=== PATIENT | female | born 1940 | race Caucasian/White ===

== ENCOUNTER 2021-05-30 10:06 | Outpatient (REF) | payer MEDICARE, BC, SELFPAY ==
--- NOTE | ~2021-05-30 | XR_ITS ---
EXAMINATION: XR ABDOMEN KUB CLINICAL INDICATION: Dorsalgia. Unspecified abdominal pain COMPARISON: None TECHNIQUE: AP view of the abdomen. FINDINGS: There is scattered stool and gas seen throughout the colon without significant distention. There is no organomegaly. There are surgical orin in the right upper quadrant from previous cholecystectomy. No radiopaque calculi seen. Mild degenerative spondylosis seen in lower dorsal and upper lumbar spine. No lytic process. XR/XR KUB IMPRESSION: Mild constipation. Moderate spondylosis lower dorsal and upper lumbar spine.
== END 2021-05-30 10:07 | disposition home or self-care (01) ==
LOC: HO.HMGCX 10:06
PROVIDERS: Visit Provider Physician Assistant
DX: M54.9 Dorsalgia, unspecified (principal); K59.09 Other constipation; Z90.49 Acquired absence of other specified parts of digestive tract
CPT/HCPCS: 74018

== ENCOUNTER 2021-12-25 08:50 | Outpatient (REF) | payer MEDICARE, BC, SELFPAY ==
[2021-12-25 11:30] LABS: MANUAL DIFF FLAG NO
[2021-12-25 11:47] LABS: Basophils Absolute Auto 0.1 X10*3/uL (0.0-0.2); Basophils Percent Auto 1.1 % (0-2); Eosinophils Absolute Auto 0.2 X10*3/uL (0.0-0.4); Eosinophils Percent Auto 3.2 % (0-4); Hematocrit 39.6 % (37.0-47.0); Hemoglobin 12.6 g/dl (12.0-16.0); Imm Gran Abs Auto 0.01 X10*3/uL (0.00-0.03); Imm Gran Pct Auto 0.2 % (0.0-0.4); Lymphocytes Absolute Auto 2.1 X10*3/uL (1.2-4.9); Lymphocytes Percent Auto 31.1 % (20-40); Mean Corpuscular HGB Conc 31.8 g/dl (31.0-35.0); Mean Corpuscular Hemoglobin 28.8 pg (27.0-33.0); Mean Corpuscular Volume 90.4 fL (80.0-98.0); Mean Platelet Volume 10.4 fL (9.4-12.3); Monocytes Absolute Auto 0.6 X10*3/uL (0.1-1.2); Monocytes Percent Auto 8.4 % (2-11); Neutrophils Absolute Auto 3.7 x10*3/uL (2.0-8.3); Platelet Count 330 X10*3/uL (160-400); Red Blood Count 4.38 X10*6/uL (4.20-5.50); Red Cell Distribution Width 13.2 % (11.0-16.0); White Blood Count 6.6 X10*3/uL (4.8-10.8)
[2021-12-25 12:52] LABS: Vitamin B12 869 pg/mL (200-900)
[2021-12-25 14:19] LABS: TSH reflex Free T4 3.12 uIU/mL (0.32-4.0)
[2021-12-25 14:31] LABS: Alanine Aminotransferase 17 U/L (0-31); Albumin Level 4.3 g/dL (3.5-5.0); Alkaline Phosphatase 69 U/L (39-117); Anion Gap 15 (12-20); Aspartate Amino Transferase 18 U/L (5-31); Bilirubin Total 0.7 mg/dL (0.0-1.0); Blood Urea Nitrogen 15 mg/dL (9-16); Calcium 8.7 mg/dL (8.4-10.2); Carbon Dioxide 27 mmol/L (22-29); Chloride 106 mmol/L (96-108); Cholesterol 172 mg/dL; Estimated Glomerular Filt Rate > 60; Glucose Fasting 109 mg/dL (60-99); HDL Cholesterol 52 mg/dL; LDL Cholesterol Calculated 99 mg/dl; Potassium 4.3 mmol/L (3.3-5.1); Sodium 144 mmol/L (135-145); Total Protein 6.7 g/dL (6.5-8.0); Triglycerides 109 mg/dL
== END 2021-12-25 08:51 | disposition home or self-care (01) ==
LOC: HO.HMGCLDS 08:50
PROVIDERS: PCP Internal Medicine; Visit Provider Internal Medicine
DX: E78.9 Disorder of lipoprotein metabolism, unspecified (principal); I10 Essential (primary) hypertension; J45.40 Moderate persistent asthma, uncomplicated; E53.8 Deficiency of other specified B group vitamins; K21.9 Gastro-esophageal reflux disease without esophagitis; Z76.89 Persons encountering health services in other specified circumstances
CPT/HCPCS: 36415; 80053; 80061; 82607; 84443; 85025

== ENCOUNTER 2022-01-15 09:36 | Outpatient (REF) | payer MEDICARE, BC, SELFPAY ==
--- NOTE | ~2022-01-15 | MM_ITS ---
EXAMINATION: MM SCREENING DIGITAL BREAST TOMOSYNTHESIS, BILATERAL CLINICAL INFORMATION: Screening. Asymptomatic. The lifetime risk of breast cancer based on the Tyrer-Cuzick Model is 2%. COMPARISON: Mammography: None at this time. It is stated that patient has had previous films done at [place]. TECHNIQUE: Digital breast tomosynthesis is performed in both the craniocaudal and mediolateral oblique views along with computer-aided detection (CAD). Synthesized 2D images are generated from the tomosynthesis. FINDINGS: The breasts are extremely dense, which lowers the sensitivity of mammography (ACR BI-RADS breast composition Category d). Within the medial aspect of the right breast approximately 7 cm from nipple, there is a well-circumscribed density that I cannot definitely identify on mediolateral oblique projection. There are also multiple calcifications about the central and superior aspects of the right breast some of which appear to be vascular and others secretory, however, there are some indeterminate calcifications present and spot magnification views are recommended if old studies cannot be obtained to show that these are stable findings. MM/MM tomosynthesis screening BI IMPRESSION: Right breast findings for which further evaluation is recommended if prior studies cannot be obtained to show that these findings are chronic. ASSESSMENT: BI-RADS 0: Incomplete - Awaiting previous examinations for comparison. RECOMMENDATION: 1. Radiology department staff will attempt to retrieve outside prior exam(s) to allow for comparison in an addendum report. 2. Otherwise, right breast spot magnification views for indeterminate calcifications and ultrasound for evaluation of the medial right breast density.
== END 2022-01-15 09:37 | disposition home or self-care (01) ==
LOC: HO.MAMMO 09:36
PROVIDERS: PCP Internal Medicine; Visit Provider Internal Medicine
DX: Z12.31 Encounter for screening mammogram for malignant neoplasm of breast (principal)
CPT/HCPCS: 77063; 77067

== ENCOUNTER 2022-02-05 13:23 | Outpatient (REF) | payer MEDICARE, BC, SELFPAY ==
--- NOTE | ~2022-02-05 | US_ITS ---
EXAMINATION: US DIAGNOSTIC ULTRASOUND BREAST, LEFT CLINICAL INFORMATION: Left breast palpable mass in the upper outer quadrant. COMPARISON: None. TECHNIQUE: Ultrasound of the breast is performed with real-time navarro scale imaging and color Doppler. FINDINGS: In the region of palpable lesion at the 1 o'clock position in the left breast 5 cm from the nipple, there is noted to be a hypoechoic, well-circumscribed lesion with increased through sound transmission. There is some internal vascularity present. It measures 1.4 x 1.2 x 1.6 cm in size and likely represents a fibroadenoma. Ultrasound-guided core biopsy of the left breast is recommended. A second option would be 6 month follow up ultrasound evaluation of the left breast. Results are discussed with the patient at time of visit. 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 Ultrasound-guided core biopsy is recommended. ASSESSMENT: BI-RADS 4: Suspicious (subcategory 4A: Low suspicion for malignancy) RECOMMENDATION: Ultrasound-guided core biopsy. Above recommendation will be called to the referring provider's office [facility] by the patient coordinator. This patient's information was entered into a reminder system with a target due date for their next mammogram.
--- NOTE | ~2022-02-05 | MM_ITS ---
EXAMINATION: MM DIAGNOSTIC DIGITAL BREAST TOMOSYNTHESIS, LEFT US TARGETED BREAST, LEFT CLINICAL INFORMATION: Region of architectural distortion on craniocaudal view. COMPARISON: Mammography: 01/15/2022 and studies dating back to 12/23/2018. TECHNIQUE: Digital breast tomosynthesis is performed. 2D images are generated from the tomosynthesis. The following views are obtained: Spot compression craniocaudal view and rolled craniocaudal views medial and lateral. Targeted left breast ultrasound. FINDINGS: The breasts are heterogeneously dense, which may obscure small masses (ACR BI-RADS breast composition Category c). Additional views demonstrate persistence of a region of architectural distortion. Repeat conversation with the patient was performed and patient said that she had had a biopsy which was benign many years ago of the left breast. Single left breast exaggerated craniocaudal view from 01/04/2020 demonstrates a similar parenchymal pattern. ULTRASOUND: Targeted ultrasound evaluation of the left breast along a region of scar from previous study does demonstrate region of probable postoperative change with scar seen going to the skin. Recommend 6 month follow up mammography of the left breast. Results are discussed with the patient at time of visit. MM/MM tomosynthesis added views L IMPRESSION: Region of architectural distortion of the left breast is likely postsurgical in nature. Six-month follow up left breast mammogram suggested. ASSESSMENT: BI-RADS 3: Probably Benign. RECOMMENDATION: Diagnostic mammography in 6 months. This patient's information was entered into a reminder system with a target due date for their next mammogram.
== END 2022-02-05 13:24 | disposition home or self-care (01) ==
LOC: HO.MAMMO 13:23
PROVIDERS: PCP Internal Medicine; Visit Provider Internal Medicine
DX: N64.89 Other specified disorders of breast (principal)
CPT/HCPCS: 76642; 77061; 77065

== ENCOUNTER 2022-03-14 10:08 | Outpatient (REF) | payer MEDICARE, BC, SELFPAY ==
--- NOTE | ~2022-03-14 | XR_ITS ---
EXAMINATION: XR knee RT 2V, XR hip RT min 2V CLINICAL INFORMATION: Pain in right hip. Pain in right knee. COMPARISON: None. TECHNIQUE: AP and frog-leg lateral views of the right hip. AP and lateral views of the right knee. FINDINGS: Mild medial compartment joint space narrowing. Medial and lateral marginal osteophytosis. Small suprapatellar joint effusion is present. Severe patellofemoral joint space narrowing and osteophytosis. There is enthesopathy of the distal quadriceps tendon attachment. Mild joint space narrowing of the right hip with lateral marginal osteophytosis. No hip or pelvic fracture seen. XR/XR knee RT 2V IMPRESSION: Tricompartmental osteoarthritis of the right knee greatest in the patellofemoral compartment. Mild degenerative changes of the right hip. No acute osseous abnormality of the right hip or knee.
--- NOTE | ~2022-03-14 | XR_ITS ---
EXAMINATION: XR knee RT 2V, XR hip RT min 2V CLINICAL INFORMATION: Pain in right hip. Pain in right knee. COMPARISON: None. TECHNIQUE: AP and frog-leg lateral views of the right hip. AP and lateral views of the right knee. FINDINGS: Mild medial compartment joint space narrowing. Medial and lateral marginal osteophytosis. Small suprapatellar joint effusion is present. Severe patellofemoral joint space narrowing and osteophytosis. There is enthesopathy of the distal quadriceps tendon attachment. Mild joint space narrowing of the right hip with lateral marginal osteophytosis. No hip or pelvic fracture seen. XR/XR hip RT min 2V IMPRESSION: Tricompartmental osteoarthritis of the right knee greatest in the patellofemoral compartment. Mild degenerative changes of the right hip. No acute osseous abnormality of the right hip or knee.
== END 2022-03-14 10:09 | disposition home or self-care (01) ==
LOC: HO.HMGCX 10:08
PROVIDERS: PCP Internal Medicine; Visit Provider Internal Medicine
DX: M25.551 Pain in right hip (principal); M25.561 Pain in right knee
CPT/HCPCS: 73502; 73560

== ENCOUNTER 2022-08-08 10:44 | Outpatient (REF) | payer MEDICARE, BC, SELFPAY ==
--- NOTE | ~2022-08-08 | MM_ITS ---
EXAMINATION: MM DIAGNOSTIC DIGITAL BREAST TOMOSYNTHESIS, LEFT CLINICAL INFORMATION: 6 month follow-up left breast asymmetry COMPARISON: Mammography: February 05, 2022 and studies dating back to December 23, 2018 TECHNIQUE: Digital breast tomosynthesis is performed in both the craniocaudal and mediolateral oblique views along with computer-aided detection (CAD). Synthesized 2D images are generated from the tomosynthesis. FINDINGS: The breasts are heterogeneously dense, which may obscure small masses (ACR BI-RADS breast composition Category c). There are no new significant masses, abnormal calcifications, or other abnormalities. The asymmetric density within the central medial aspect of the left breast on craniocaudal view appears stable and may represent postsurgical scarring. Recommend bilateral mammogram in 12 months. Results are provided to the patient at time of visit by the technologist. MM/MM tomosynthesis diagnostic LT IMPRESSION: There are no significant changes from prior study. ASSESSMENT: BI-RADS 3: Probably Benign RECOMMENDATION: Diagnostic mammography at time of next annual exam, due in 12 months. This patient's information was entered into a reminder system with a target due date for their next mammogram.
== END 2022-08-08 10:45 | disposition home or self-care (01) ==
LOC: HO.MAMMO 10:44
PROVIDERS: PCP Internal Medicine; Visit Provider Internal Medicine
DX: N64.89 Other specified disorders of breast (principal)
CPT/HCPCS: 77061; 77065

== ENCOUNTER 2022-08-29 10:14 | Outpatient (REF) | payer MEDICARE, BC, SELFPAY ==
[2022-08-29 11:42] LABS: MANUAL DIFF FLAG NO
[2022-08-29 11:56] LABS: Basophils Absolute Auto 0.1 X10*3/uL (0.0-0.2); Basophils Percent Auto 0.9 % (0-2); Eosinophils Absolute Auto 0.2 X10*3/uL (0.0-0.4); Eosinophils Percent Auto 2.3 % (0-4); Hematocrit 39.1 % (37.0-47.0); Hemoglobin 12.2 g/dl (12.0-16.0); Imm Gran Abs Auto 0.03 X10*3/uL (0.00-0.03); Imm Gran Pct Auto 0.5 % (0.0-0.4); Lymphocytes Absolute Auto 2.1 X10*3/uL (1.2-4.9); Lymphocytes Percent Auto 30.9 % (20-40); Mean Corpuscular HGB Conc 31.2 g/dl (31.0-35.0); Mean Corpuscular Hemoglobin 28.6 pg (27.0-33.0); Mean Corpuscular Volume 91.8 fL (80.0-98.0); Monocytes Absolute Auto 0.6 X10*3/uL (0.1-1.2); Monocytes Percent Auto 8.7 % (2-11); Neutrophils Absolute Auto 3.8 x10*3/uL (2.0-8.3); Neutrophils Percent Auto 56.7 % (45-73); Platelet Count 364 X10*3/uL (160-400); Red Blood Count 4.26 X10*6/uL (4.20-5.50); Red Cell Distribution Width 13.5 % (11.0-16.0); White Blood Count 6.6 X10*3/uL (4.8-10.8)
[2022-08-29 12:05] LABS: Estimated Average Glucose 114 mg/dL; Hemoglobin A1c % 5.6 %
[2022-08-29 12:30] LABS: Alanine Aminotransferase 18 U/L (0-31); Albumin Level 4.2 g/dL (3.5-5.0); Alkaline Phosphatase 70 U/L (39-117); Anion Gap 11 (12-20); Aspartate Amino Transferase 22 U/L (5-31); Bilirubin Total 0.9 mg/dL (0.0-1.0); Blood Urea Nitrogen 16 mg/dL (9-16); Calcium 9.4 mg/dL (8.4-10.2); Carbon Dioxide 30 mmol/L (22-29); Chloride 108 mmol/L (96-108); Cholesterol 167 mg/dL; Estimated Glomerular Filt Rate > 60; Glucose Fasting 103 mg/dL (60-99); HDL Cholesterol 58 mg/dL; LDL Cholesterol Calculated 85 mg/dl; Potassium 4.5 mmol/L (3.3-5.1); Sodium 144 mmol/L (135-145); Total Protein 6.4 g/dL (6.5-8.0); Triglycerides 122 mg/dL
[2022-08-29 12:33] LABS: Vitamin B12 569 pg/mL (200-900)
== END 2022-08-29 10:15 | disposition home or self-care (01) ==
LOC: HO.HMGCLDS 10:14
PROVIDERS: PCP Internal Medicine; Visit Provider Internal Medicine
DX: E78.9 Disorder of lipoprotein metabolism, unspecified (principal); J45.40 Moderate persistent asthma, uncomplicated; K21.9 Gastro-esophageal reflux disease without esophagitis; E53.8 Deficiency of other specified B group vitamins; I10 Essential (primary) hypertension; R73.01 Impaired fasting glucose
CPT/HCPCS: 36415; 80053; 80061; 82607; 83036; 85025

== ENCOUNTER 2022-10-31 11:57 | Outpatient (REF) | payer MEDICARE, BC, SELFPAY ==
[2022-10-31 14:05] LABS: Alanine Aminotransferase 13 U/L (0-31); Albumin Level 4.1 g/dL (3.5-5.0); Alkaline Phosphatase 70 U/L (39-117); Anion Gap 13 (12-20); Aspartate Amino Transferase 19 U/L (5-31); Bilirubin Total 0.8 mg/dL (0.0-1.0); Blood Urea Nitrogen 14 mg/dL (9-16); Calcium 9.5 mg/dL (8.4-10.2); Carbon Dioxide 29 mmol/L (22-29); Chloride 106 mmol/L (96-108); Estimated Glomerular Filt Rate > 60; Glucose Random 97 mg/dL (60-115); Potassium 3.9 mmol/L (3.3-5.1); Sodium 144 mmol/L (135-145); Total Protein 6.5 g/dL (6.5-8.0)
[2022-10-31 14:29] LABS: B Type Natriuretic Peptide 37 pg/mL (<100)
== END 2022-10-31 11:58 | disposition home or self-care (01) ==
LOC: HO.HMGCLDS 11:57
PROVIDERS: PCP Internal Medicine; Visit Provider Internal Medicine
DX: I10 Essential (primary) hypertension (principal)
CPT/HCPCS: 36415; 80053; 83880

== ENCOUNTER 2022-11-11 12:11 | Outpatient (REF) | payer MEDICARE, BC, SELFPAY ==
[2022-11-11 15:47] LABS: Anion Gap 12 (12-20); Blood Urea Nitrogen 22 mg/dL (9-16); Calcium 9.4 mg/dL (8.4-10.2); Carbon Dioxide 29 mmol/L (22-29); Chloride 105 mmol/L (96-108); Estimated Glomerular Filt Rate > 60; Glucose Random 118 mg/dL (60-115); Potassium 3.9 mmol/L (3.3-5.1); Sodium 142 mmol/L (135-145)
== END 2022-11-11 12:12 | disposition home or self-care (01) ==
LOC: HO.HMGCLDS 12:11
PROVIDERS: PCP Internal Medicine; Visit Provider Internal Medicine
DX: I10 Essential (primary) hypertension (principal)
CPT/HCPCS: 36415; 80048

== ENCOUNTER 2022-12-24 11:50 | Outpatient (AMB) | payer MEDICARE, BC, SELFPAY ==
--- NOTE | 2022-12-24 12:09 | MHC.PC.OV ---
Vital Signs 12/24/22 12:12 Weight 165 lb BP 130/74 Blood Pressure Location Rt brachial Position Sitting Pulse 62 Pulse Source Pulse Oximeter Pulse Oximetry (%) 97 Oxygen Delivery Method Room Air Intake Visit Reasons: Annual PE/overdue Allergies amlodipine Adverse Reaction (Intermediate, Verified 12/24/22 12:12) Edema Tobacco use date assessed: 11/11/22 Fall risk assessment: No Falls in past year Last assessed Fall Risk: 12/24/22 Dental Screening Dental Screen Date: 12/24/22 Did you have a dental visit in the last 12 months?: Yes Did you have a dental problem in the last 6 months where you did not have access to dental care?: No Was dental information given to patient?: Patient has dentist HPI Annual PE/overdue HPI Details Pt PRESENTS FOR PHYSICAL PFSH Family History Father No problems noted. Daughter Substance use disorder Social History Housing: House Patient Tobacco Use Status: Never used Tobacco e-Cigarette/Vaping Use: Never Used service: No Current occupational status: retired Cognitive needs: No Hearing needs: No Vision needs: Yes Questionnaire Thrive Questionnaire Date Thrive assessed: 07/08/22 KARINA-7 AMB Questionnaire KARINA-7 Date KARINA - 7 assessed: 07/08/22 Source: Developed by Drs. Danie Sanchez, Milagros Mace, Gen Miller and colleagues, with an educational rachel from [employer]. Review of Systems Const All systems reviewed & are unremarkable except as noted in HPI and below Reports no additional complaints Eyes Reports no additional complaints ENT Reports no additional complaints Card Reports no additional complaints Resp Reports no additional complaints GI Reports no additional complaints Reports no additional complaints Physical exam (Primary Care) Vital Signs: Last Vital Signs Pulse 62 12/24/22 12:12 BP 130/74 12/24/22 12:12 Pulse Ox 97 12/24/22 12:12 Oxygen Delivery Method Room Air 12/24/22 12:12 Tobacco/Smoking Status: Tobacco use Status Tobacco use date assessed 11/11/22 12/24/22 12:11 Patient Tobacco Use Status Never used Tobacco 12/24/22 12:11 e-Cigarette/Vaping Use Never Used 12/24/22 12:11 Thrive Assessment: Date of Thrive Assessment Date Thrive assessed 07/08/22 12/24/22 12:11 Const General: no acute distress HENMT Head: Yes normal to inspection Ears: hearing grossly normal bilaterally Face and sinus: Yes normal facial exam Eyes General: appearance normal, both eyes and all related structures Resp Effort & Inspection: normal respiratory effort Auscultation: clear to auscultation bilaterally Cardio Rhythm: regular rhythm Heart sounds: S1 normal heart sound present and S2 normal heart sound present GI Inspection: Yes normal to inspection Palpation (GI): Soft to palpation Percussion: Yes normal to percussion Auscultation: normal bowel sounds Assessment and Plan Assessment & Plan (1) Lipid disorder: Code(s): E78.9 - Disorder of lipoprotein metabolism, unspecified Plan: Continue atorvastatin (2) Hypertension, essential: Code(s): I10 - Essential (primary) hypertension Plan: Continue current medications (3) B12 deficiency: Code(s): E53.8 - Deficiency of other specified B group vitamins Plan: Check vitamin B12 level (4) Annual physical exam: Code(s): Z00.00 - Encounter for general adult medical examination without abnormal findings Plan: Well-balanced diet and physical activity discussed with the patient. She will return for fasting blood work and will follow-up in 6 months Orders: Orders Comprehensive [place]. Panel Fast Today E78.9 - Disorder of lipoprotein metabolism, unspecified, I10 - Essential (primary) hypertension, M25.551 - Pain in right hip Lipid Panel Today E78.9 - Disorder of lipoprotein metabolism, unspecified, I10 - Essential (primary) hypertension, M25.551 - Pain in right hip Complete Blood Count Auto Diff Today E78.9 - Disorder of lipoprotein metabolism, unspecified, I10 - Essential (primary) hypertension, M25.551 - Pain in right hip Hemoglobin A1c Today E78.9 - Disorder of lipoprotein metabolism, unspecified, I10 - Essential (primary) hypertension, M25.551 - Pain in right hip Microalbumin, Random (w Creat) Today E78.9 - Disorder of lipoprotein metabolism, unspecified, I10 - Essential (primary) hypertension, M25.551 - Pain in right hip TSH reflex Free T4 Today E78.9 - Disorder of lipoprotein metabolism, unspecified, I10 - Essential (primary) hypertension, M25.551 - Pain in right hip Uric Acid Today M25.551 - Pain in right hip Vitamin B12 and Folate Today E53.8 - Deficiency of other specified B group vitamins, M25.551 - Pain in right hip Medications: Refilled olmesartan-hydrochlorothiazide 40-12.5 mg 1 tab PO DAILY 90 tabs 2RF atorvastatin 10 mg PO DAILY 90 tabs 3RF omeprazole 40 mg PO DAILY 90 caps 3RF nystatin 1 appl topical BID 30 days PRN 30 grams 5RF rash Coding Level of Care Code Est Pt Prev Care >65y(50970) Diagnoses Lipid disorder E78.9 Hypertension, essential I10 B12 deficiency E53.8 Annual physical exam Z00.00
[2022-12-24 12:12] VITALS: BP 130/74; PULSE 62; O2SAT 97
== END 2022-12-24 12:54 | disposition home or self-care (01) ==
PROVIDERS: PCP Internal Medicine; Visit Provider Internal Medicine
DX: E78.9 Disorder of lipoprotein metabolism, unspecified (principal); I10 Essential (primary) hypertension; E53.8 Deficiency of other specified B group vitamins; Z00.00 Encounter for general adult medical examination without abnormal findings
CPT/HCPCS: 99397

== ENCOUNTER 2023-01-15 08:16 | Outpatient (REF) | payer MEDICARE, BC, SELFPAY ==
[2023-01-15 11:25] LABS: MANUAL DIFF FLAG NO
[2023-01-15 11:46] LABS: Basophils Absolute Auto 0.1 X10*3/uL (0.0-0.2); Basophils Percent Auto 0.9 % (0-2); Eosinophils Absolute Auto 0.3 X10*3/uL (0.0-0.4); Eosinophils Percent Auto 3.8 % (0-4); Hematocrit 39.1 % (37.0-47.0); Hemoglobin 12.3 g/dl (12.0-16.0); Imm Gran Abs Auto 0.03 X10*3/uL (0.00-0.03); Imm Gran Pct Auto 0.4 % (0.0-0.4); Lymphocytes Absolute Auto 2.6 X10*3/uL (1.2-4.9); Lymphocytes Percent Auto 38.9 % (20-40); Mean Corpuscular HGB Conc 31.5 g/dl (31.0-35.0); Mean Corpuscular Hemoglobin 28.7 pg (27.0-33.0); Mean Corpuscular Volume 91.4 fL (80.0-98.0); Mean Platelet Volume 10.2 fL (9.4-12.3); Monocytes Absolute Auto 0.5 X10*3/uL (0.1-1.2); Monocytes Percent Auto 7.4 % (2-11); Neutrophils Absolute Auto 3.3 x10*3/uL (2.0-8.3); Neutrophils Percent Auto 48.6 % (45-73); Platelet Count 340 X10*3/uL (160-400); Red Blood Count 4.28 X10*6/uL (4.20-5.50); Red Cell Distribution Width 14.3 % (11.0-16.0); White Blood Count 6.8 X10*3/uL (4.8-10.8)
[2023-01-15 11:59] LABS: Estimated Average Glucose 111 mg/dL; Hemoglobin A1c % 5.5 % (<6.0)
[2023-01-15 12:21] LABS: Alanine Aminotransferase 16 U/L (0-31); Alkaline Phosphatase 58 U/L (39-117); Anion Gap 11 (12-20); Aspartate Amino Transferase 21 U/L (5-31); Bilirubin Total 0.5 mg/dL (0.0-1.0); Blood Urea Nitrogen 17 mg/dL (9-16); Calcium 9.2 mg/dL (8.4-10.2); Carbon Dioxide 29 mmol/L (22-29); Chloride 106 mmol/L (96-108); Cholesterol 166 mg/dL (<200); Estimated Glomerular Filt Rate > 60; Glucose Fasting 97 mg/dL (60-99); HDL Cholesterol 52 mg/dL (>40); LDL Cholesterol Calculated 77 mg/dL (<100); Sodium 142 mmol/L (135-145); Total Protein 6.7 g/dL (6.5-8.0); Triglycerides 188 mg/dL (<150); Uric Acid 6.2 mg/dL (2.4-5.7)
[2023-01-15 12:25] LABS: TSH reflex Free T4 2.97 uIU/mL (0.32-4.0)
[2023-01-15 12:35] LABS: Folate 12.8 ng/mL (> or = 4.0); Vitamin B12 555 pg/mL (200-900)
[2023-01-15 13:09] LABS: Creatinine Urine 105.31 mg/dL; Microalbum/Creatinine Ratio Ur 6.6 ug/mg cr (<30)
== END 2023-01-15 08:17 | disposition home or self-care (01) ==
LOC: HO.HMGCLDS 08:16
PROVIDERS: PCP Internal Medicine; Visit Provider Internal Medicine
DX: M25.551 Pain in right hip (principal); E78.9 Disorder of lipoprotein metabolism, unspecified; E53.8 Deficiency of other specified B group vitamins; I10 Essential (primary) hypertension
CPT/HCPCS: 36415; 80053; 80061; 82043; 82607; 82746; 83036; 84443; 84550; 85025

== ENCOUNTER 2023-02-18 10:42 | Outpatient (REF) | payer MEDICARE, BC, SELFPAY | END 2023-02-18 10:43 | disposition home or self-care (01) | LOC: HO.MAMMO 10:42 | PROVIDERS: PCP Internal Medicine; Visit Provider Internal Medicine | DX: Z13.89 Encounter for screening for other disorder (principal) ==

== ENCOUNTER 2023-03-05 13:23 | Outpatient (REF) | payer MEDICARE, BC, SELFPAY ==
--- NOTE | ~2023-03-05 | MM_ITS ---
EXAMINATION: MM DIAGNOSTIC DIGITAL BREAST TOMOSYNTHESIS, BILATERAL CLINICAL INFORMATION: Follow-up left breast distortion seen on MLO projection approximate 5:00 axis posterior breast. COMPARISON: Mammography: 08/08/2022, 02/05/2022, 01/15/2022, 01/09/2021, 01/04/2020, and dating back to 2019. TECHNIQUE: Digital breast tomosynthesis is performed in both the craniocaudal and mediolateral oblique views along with computer-aided detection (CAD). Synthesized 2D images are generated from the tomosynthesis. FINDINGS: The breasts are heterogeneously dense, which may obscure small masses (ACR BI-RADS breast composition Category c). The previously questioned architectural distortion in the posterior left breast on the CC projection does not persist on today's examination. There is no persistent architectural distortion in the left breast. There are stable dystrophic appearing calcifications in the central and upper right breast, which most likely are related to fat necrosis. There is no mass, architectural distortion, or suspicious calcification in either breast. No skin changes are evident. The axillary regions are unremarkable. MM/MM tomosynthesis diagnostic BI IMPRESSION: No persistent findings suspicious for malignancy. In particular, the questionable distortion in the left breast is no longer evident. Stable benign findings both breasts. Recommend the patient return to routine annual screening in one year. ASSESSMENT: BI-RADS BI-RADS 2 - Benign Findings RECOMMENDATION: 1 year F/U Results were provided to the patient at time of visit by the technologist. This patient's information was entered into a reminder system with a target due date for their next mammogram.
== END 2023-03-05 13:24 | disposition home or self-care (01) ==
LOC: HO.MAMMO 13:23
PROVIDERS: Visit Provider Internal Medicine
DX: N64.89 Other specified disorders of breast (principal)
CPT/HCPCS: 77062; 77066

== ENCOUNTER → 2023-03-05 13:30 | Outpatient (BNV) | payer MEDICARE, BC, SELFPAY | PROVIDERS: Visit Provider Radiology Diagnostic Radiology | DX: R92.1 Mammographic calcification found on diagnostic imaging of breast (principal) | CPT/HCPCS: 77062; 77066; G0279 ==

== ENCOUNTER 2023-06-26 10:21 | Outpatient (AMB) | payer MEDICARE, BC, SELFPAY ==
[2023-06-26 10:52] VITALS: BP 134/78; PULSE 85; O2SAT 95; BMI 30.1
--- NOTE | 2023-06-26 10:52 | MHC.PC.OV ---
Vital Signs 06/26/23 10:52 Height 5 ft 3 in Weight 170 lb BMI 30.1 BP 134/78 Blood Pressure Location Lt brachial Position Sitting Pulse 85 Pulse Source Pulse Oximeter Pulse Oximetry (%) 95 Oxygen Delivery Method Room Air Intake Visit Reasons: 6 Month follow up, HTN Intake Note: Pt is here today for 6 months follow up visit on HTN. Allergies amlodipine Adverse Reaction (Intermediate, Verified 06/26/23 11:00) Edema Medication List - Last Reconciled 06/26/23 by Cielo Nichols MD albuterol sulfate 90 mcg/actuation 2 puffs PO Q4H PRN 30 days atorvastatin 10 mg PO DAILY beclomethasone dipropionate 80 mcg/actuation 1 inh inhalation Q12H nystatin 1 appl topical BID PRN 30 days olmesartan-hydrochlorothiazide 40-12.5 mg 1 tab PO DAILY omeprazole 40 mg PO DAILY Tobacco use date assessed: 06/26/23 Fall risk assessment: No Falls in past year Last assessed Fall Risk: 06/26/23 Dental Screening Dental Screen Date: 06/26/23 Did you have a dental visit in the last 12 months?: Yes Did you have a dental problem in the last 6 months where you did not have access to dental care?: No Was dental information given to patient?: Patient has dentist HPI 6 Month follow up, HTN HPI Details Patient presents for the follow-up on hypertension hyperlipidemia controlled on current medications. [facility] Family History Father No problems noted. Daughter Substance use disorder Social History Housing: House Patient Tobacco Use Status: Never used Tobacco e-Cigarette/Vaping Use: Never Used service: No Current occupational status: retired Cognitive needs: No Hearing needs: No Vision needs: Yes Questionnaire Thrive Questionnaire Date Thrive assessed: 07/08/22 AUDIT C Alcohol Use Questionnaire (AUDIT-C) 1. How often do you have a drink containing alcohol?: Monthly or less 2. How many drinks containing alcohol do you have on a typical day when you are drinking?: 1 or 2 3. How often do you have six or more drinks on one occasion?: Never Total Score: 1 KARINA-7 AMB Questionnaire KARINA-7 Date KARINA - 7 assessed: 07/08/22 Feeling nervous, anxious, or on edge: 0 = Not at all Not being able to stop or control worryin = Not at all Worrying too much about different things: 0 = Not at all Trouble relaxin = Not at all Being so restless that it is hard to sit still: 0 = Not at all Becoming easily annoyed or irritable: 0 = Not at all Feeling afraid as if something awful might happen: 0 = Not at all Total KARINA-7 score (0-4 normal; 5-9 mild; 10-14 moderate; 15-21 severe): 0 Source: Developed by Drs. Danie Sanchez, Milagros Mace, Gen Miller and colleagues, with an educational rachel from [employer]. Review of Systems Const All systems reviewed & are unremarkable except as noted in HPI and below Reports no additional complaints Eyes Reports no additional complaints ENT Reports no additional complaints Card Reports no additional complaints Resp Reports no additional complaints GI Reports no additional complaints Reports no additional complaints Physical exam (Primary Care) Vital Signs: Last Vital Signs Pulse 85 06/26/23 10:52 BP 134/78 06/26/23 10:52 Pulse Ox 95 06/26/23 10:52 Oxygen Delivery Method Room Air 06/26/23 10:52 BMI result Body Mass Index 30.1 Tobacco/Smoking Status: Tobacco use Status Tobacco use date assessed 06/26/23 06/26/23 10:55 Patient Tobacco Use Status Never used Tobacco 06/26/23 10:55 e-Cigarette/Vaping Use Never Used 06/26/23 10:54 Thrive Assessment: Date of Thrive Assessment Date Thrive assessed 07/08/22 06/26/23 10:54 Const General: no acute distress HENMT Head: Yes normal to inspection Neck Neck: Yes supple Resp Effort & Inspection: normal respiratory effort Auscultation: clear to auscultation bilaterally Cardio Rhythm: regular rhythm Heart sounds: S1 normal heart sound present and S2 normal heart sound present GI Inspection: Yes normal to inspection Palpation (GI): Soft to palpation Percussion: Yes normal to percussion Auscultation: normal bowel sounds Assessment and Plan Assessment & Plan (1) Hypertension, essential: Code(s): I10 - Essential (primary) hypertension Plan: Continue current medications (2) Annual physical exam: Code(s): Z00.00 - Encounter for general adult medical examination without abnormal findings Plan: Return for physical in December (3) B12 deficiency: Code(s): E53.8 - Deficiency of other specified B group vitamins Plan: Continue B12 supplement (4) Lipid disorder: Code(s): E78.9 - Disorder of lipoprotein metabolism, unspecified Plan: Continue atorvastatin Orders: Orders Comprehensive [place]. Panel Fast 6 Months E53.8 - Deficiency of other specified B group vitamins, E78.9 - Disorder of lipoprotein metabolism, unspecified, I10 - Essential (primary) hypertension, Z00.00 - Encounter for general adult medical examination without abnormal findings TSH reflex Free T4 6 Months E53.8 - Deficiency of other specified B group vitamins, E78.9 - Disorder of lipoprotein metabolism, unspecified, I10 - Essential (primary) hypertension, Z00.00 - Encounter for general adult medical examination without abnormal findings Vitamin B12 and Folate 6 Months E53.8 - Deficiency of other specified B group vitamins, E78.9 - Disorder of lipoprotein metabolism, unspecified, I10 - Essential (primary) hypertension, Z00.00 - Encounter for general adult medical examination without abnormal findings Complete Blood Count Man Dif 6 Months E53.8 - Deficiency of other specified B group vitamins, E78.9 - Disorder of lipoprotein metabolism, unspecified, I10 - Essential (primary) hypertension, Z00.00 - Encounter for general adult medical examination without abnormal findings Lipid Panel 6 Months E53.8 - Deficiency of other specified B group vitamins, E78.9 - Disorder of lipoprotein metabolism, unspecified, I10 - Essential (primary) hypertension, Z00.00 - Encounter for general adult medical examination without abnormal findings Coding Level of Care Code Est Pt Level 4 (37795) Diagnoses Hypertension, essential I10 Annual physical exam Z00.00 B12 deficiency E53.8 Lipid disorder E78.9
== END 2023-06-26 12:27 | disposition home or self-care (01) ==
PROVIDERS: PCP Internal Medicine; Visit Provider Internal Medicine
DX: I10 Essential (primary) hypertension (principal); Z00.00 Encounter for general adult medical examination without abnormal findings; E53.8 Deficiency of other specified B group vitamins; E78.9 Disorder of lipoprotein metabolism, unspecified
CPT/HCPCS: 99214

== ENCOUNTER 2023-12-15 07:41 | Outpatient (REF) | payer MEDICARE, BC, SELFPAY ==
[2023-12-15 10:18] LABS: Baso%MD 0.6 %; Eos%MD 3.4 %; Hematocrit 36.2 % (37.0-47.0); Hemoglobin 11.5 g/dl (12.0-16.0); IG%MD 0.3 %; Lymph%MD 34.2 %; Mean Corpuscular HGB Conc 31.8 g/dl (31.0-35.0); Mean Corpuscular Hemoglobin 29.9 pg (27.0-33.0); Mean Corpuscular Volume 94.3 fL (80.0-98.0); Mean Platelet Volume 10.1 fL (9.4-12.3); Mono%MD 8.5 %; Platelet Count 320 X10*3/uL (160-400); Red Blood Count 3.84 X10*6/uL (4.20-5.50); Red Cell Distribution Width 12.9 % (11.0-16.0); White Blood Count 6.4 X10*3/uL (4.8-10.8)
[2023-12-15 10:35] LABS: Alanine Aminotransferase 11 U/L (0-31); Albumin Level 4.1 g/dL (3.5-5.0); Alkaline Phosphatase 54 U/L (39-117); Anion Gap 13 (12-20); Aspartate Amino Transferase 17 U/L (5-31); Bilirubin Total 0.6 mg/dL (0.0-1.0); Blood Urea Nitrogen 19 mg/dL (9-16); Carbon Dioxide 28 mmol/L (22-29); Chloride 108 mmol/L (96-108); Cholesterol 157 mg/dL (<200); Estimated Glomerular Filt Rate > 60; Glucose Fasting 102 mg/dL (60-99); HDL Cholesterol 52 mg/dL (>40); LDL Cholesterol Calculated 79 mg/dL (<100); Sodium 145 mmol/L (135-145); Total Protein 6.5 g/dL (6.5-8.0); Triglycerides 132 mg/dL (<150)
[2023-12-15 10:44] LABS: TSH reflex Free T4 3.16 uIU/mL (0.32-4.0)
[2023-12-15 11:10] LABS: Folate 14.5 ng/mL (> or = 4.0); Vitamin B12 787 pg/mL (200-900)
[2023-12-15 12:00] LABS: Band Neutrophils Percent 0 % (3-5); Basophils Abs Manual 0.1 X10*3/uL (0.0-0.2); Basophils Percent Manual 1 % (0-2); Eosinophils Absolute Manual 0.3 X10*3/uL (0.0-0.4); Eosinophils Percent Manual 4 % (0-4); Lymphocytes Absolute Manual 1.8 X10*3/uL (1.2-4.9); Lymphocytes Percent Manual 28 % (20-40); Monocytes Absolute Manual 0.1 X10*3/uL (0.1-1.2); Monocytes Percent Manual 2 % (2-11); Neutrophils Absolute Manual 4.2 X10*3/uL (2.0-8.3); Neutrophils Percent Manual 65 % (45-73)
[2023-12-15 12:01] LABS: Platelet Estimate NORMAL (NORMAL); Platelet Morphology Comment NORMAL; RBC Morphology NORMAL
== END 2023-12-15 07:42 | disposition home or self-care (01) ==
LOC: HO.HMGCLDS 07:41
PROVIDERS: PCP Internal Medicine; Visit Provider Internal Medicine
DX: Z00.00 Encounter for general adult medical examination without abnormal findings (principal); E78.9 Disorder of lipoprotein metabolism, unspecified; I10 Essential (primary) hypertension; E53.8 Deficiency of other specified B group vitamins
CPT/HCPCS: 36415; 80053; 80061; 82607; 82746; 84443; 85007; 85027

== ENCOUNTER 2024-01-01 11:12 | Outpatient (AMB) | payer MEDICARE, BC, SELFPAY ==
--- NOTE | 2024-01-01 11:43 | A.OFFPC_ITS ---
Vital Signs 01/01/24 11:44 Height 5 ft 3 in Weight 170 lb BMI 30.1 BP 130/80 Blood Pressure Location Lt brachial Position Sitting Pulse 82 Pulse Source Pulse Oximeter Pulse Oximetry (%) 96 Oxygen Delivery Method Room Air Intake Visit Reasons: PE Intake Note: Pt is here today for PE. Pt states that she was seen at [facility] for her R hip pain. Pt states that she went for xrays and MRI. Pt has appt with [facility] in January. Pt states that she gets the pain in her R side in the buttock area that goes down her R leg. Allergies amlodipine Adverse Reaction (Intermediate, Verified 01/01/24 11:51) Edema Medication List - Last Reconciled 01/01/24 by Cielo Nichols MD acetaminophen ER (Arthritis Pain Relief (acetaminophen) ER) 650 mg PO Q12H albuterol sulfate 90 mcg/actuation 2 puffs PO Q4H PRN 30 days atorvastatin 10 mg PO DAILY beclomethasone dipropionate 80 mcg/actuation 1 inh inhalation Q12H nystatin 1 appl topical BID PRN 30 days olmesartan-hydrochlorothiazide 40-12.5 mg 1 tab PO DAILY omeprazole 40 mg PO DAILY Tobacco use date assessed: 01/01/24 Fall risk assessment: No Falls in past year Last assessed Fall Risk: 01/01/24 Dental Screening Dental Screen Date: 01/01/24 Did you have a dental visit in the last 12 months?: Yes Did you have a dental problem in the last 6 months where you did not have access to dental care?: No Was dental information given to patient?: Patient has dentist HPI PE HPI Details Pt presents for PE. Pt c/o persistent RLE radiating from the buttock to right dotson worse when sitting or standing for a long time since May. Patient has been 2 Orthopedics tried physical therapy for 2 months and the MRI showed multilevel degenerative changes but no significant spinal stenosis. Patient denies any weakness in lower extremities change in the bowel or bladder function. [facility] Surgical History Hx of appendectomy Family History Father No problems noted. Daughter Substance use disorder Social History Housing: House Patient Tobacco Use Status: Never used Tobacco e-Cigarette/Vaping Use: Never Used service: No Current occupational status: retired Cognitive needs: No Hearing needs: No Vision needs: Yes Questionnaire PHQ-9 Over the last 2 weeks, how often have you been bothered by any of the following problems? 1. Little interest or pleasure in doing things: not at all 2. Feeling down, depressed, or hopeless: not at all 3. Trouble falling or staying asleep, or sleeping too much: not at all 4. Feeling tired or having little energy: not at all 5. Poor appetite or overeating: not at all 6. Feeling bad about yourself - or that you are a failure or have let yourself or your family down: not at all 7. Trouble concentrating on things, such as reading the newspaper or watching television: not at all 8. Moving or speaking so slowly that other people could have noticed. Or the opposite - being so fidgety or restless that you have been moving around a lot more than usual: not at all 9. Thoughts that you would be better off or of hurting yourself in some way: not at all Total score: 0 Depression Screening Interpretation: Negative Depression Screening Done: Yes 98407 - PHQ-9 Billing: Yes Source: Developed by Drs. Danie Sanchez, Milagros Mace, Gen Miller and colleagues, with an educational rachel from [employer] Thrive Questionnaire Date Thrive assessed: 01/01/24 I am a: Patient What is your living situation today?: I have a steady place to live Within the past 12 months, did the food you bought not last and you didn't have the money to get more?: I choose not to answer this question Within the past 12 months, did you worry whether your food would run out before you got money to buy more?: Never true Do you have trouble paying for medicines?: No Do you have trouble getting transportation to medical appointments?: No Do you have trouble paying your heating and electricity bill?: No Do you have trouble taking care of your child, family member or friend?: No Do you have trouble with day-to-day activities such as bathing, preparing meals, shopping, managing finances, etc.?: No Are you currently unemployed and looking for a job?: No Are you interested in more education?: No Please select the resources that you would like help with: Housing/Group Home Currently or been in a relationship where the following occur: No concerns reported THRIVE Score: 0 AUDIT C Alcohol Use Questionnaire (AUDIT-C) 3. How often do you have six or more drinks on one occasion?: Less than monthly Total Score: 1 KARINA-7 AMB Questionnaire KARINA-7 Date KARINA - 7 assessed: 01/01/24 Feeling nervous, anxious, or on edge: 0 = Not at all Not being able to stop or control worryin = Not at all Worrying too much about different things: 0 = Not at all Trouble relaxin = Not at all Being so restless that it is hard to sit still: 0 = Not at all Becoming easily annoyed or irritable: 0 = Not at all Feeling afraid as if something awful might happen: 0 = Not at all Total KARINA-7 score (0-4 normal; 5-9 mild; 10-14 moderate; 15-21 severe): 0 Source: Developed by Drs. Danie Sanchez, Milagros Mace, Gen Miller and colleagues, with an educational rachel from [employer] KARINA-7 Assessment Billing KARINA-7 Assessment Tool: KARINA-7 Assessment 29281 Review of Systems Const All systems reviewed & are unremarkable except as noted in HPI and below Reports no additional complaints Eyes Reports no additional complaints ENT Reports no additional complaints Card Reports no additional complaints Resp Reports no additional complaints GI Reports no additional complaints Physical exam (Primary Care) Vital Signs: Last Vital Signs Pulse 82 01/01/24 11:44 BP 130/80 01/01/24 11:44 Pulse Ox 96 01/01/24 11:44 Oxygen Delivery Method Room Air 01/01/24 11:44 BMI result Body Mass Index 30.1 Tobacco/Smoking Status: Tobacco use Status Tobacco use date assessed 01/01/24 01/01/24 11:45 Patient Tobacco Use Status Never used Tobacco 01/01/24 11:45 e-Cigarette/Vaping Use Never Used 01/01/24 11:45 PHQ-9: PHQ-9 Score PHQ-9: Total score 0 01/01/24 11:55 Depression Screening Interpretation: Negative Thrive Assessment: Date of Thrive Assessment Date Thrive assessed 01/01/24 01/01/24 11:45 Currently or been in a relationship where the following occur: No concerns reported Const General: no acute distress HENMT Head: Yes normal to inspection Ears: hearing grossly normal bilaterally Face and sinus: Yes normal facial exam Throat: Yes posterior oropharynx normal Eyes General: appearance normal, both eyes and all related structures Neck Neck: Yes no lymphadenopathy and Yes supple Resp Effort & Inspection: normal respiratory effort Auscultation: clear to auscultation bilaterally Cardio Rhythm: regular rhythm Heart sounds: S1 normal heart sound present and S2 normal heart sound present GI Inspection: Yes normal to inspection Palpation (GI): Soft to palpation Percussion: Yes normal to percussion Auscultation: normal bowel sounds Assessment and Plan Assessment & Plan (1) Anemia: Code(s): D64.9 - Anemia, unspecified Plan: borderline, check Iron (2) Hypertension, essential: Code(s): I10 - Essential (primary) hypertension Plan: Continue current medications (3) Annual physical exam: Code(s): Z00.00 - Encounter for general adult medical examination without abnormal findings Plan: Well-balanced diet regular physical activity discussed with the patient. (4) Sciatica: Comment: MR 11/2023 DEGENERATIVE DISC DISEASE Code(s): M54.30 - Sciatica, unspecified side Plan: Patient was advised to start home lower back exercises and baclofen will be added as needed. Follow-up in 2 months (5) Asthma, moderate persistent: Code(s): J45.40 - Moderate persistent asthma, uncomplicated Plan: Continue beclomethasone inhaler Orders: Orders IRON PROFILE Today D64.9 - Anemia, unspecified Complete Blood Count Auto Diff Today D64.9 - Anemia, unspecified Medications: New baclofen 10 mg PO BID 30 tabs 0RF Coding Level of Care Code Est Pt Prev Care >65y(08898) Diagnoses Anemia D64.9 Hypertension, essential I10 Annual physical exam Z00.00 Sciatica M54.30 Asthma, moderate persistent J45.40 Additional Codes KARINA-7 Assessment Billing - KARINA-7 Assessment Tool: KARINA-7 Assessment 87950 ([id number])
[2024-01-01 11:44] VITALS: BP 130/80; PULSE 82; O2SAT 96; BMI 30.1
== END 2024-01-01 12:55 | disposition home or self-care (01) ==
PROVIDERS: PCP Internal Medicine; Visit Provider Internal Medicine
DX: Z00.00 Encounter for general adult medical examination without abnormal findings (principal); D64.9 Anemia, unspecified; I10 Essential (primary) hypertension; M54.30 Sciatica, unspecified side; J45.40 Moderate persistent asthma, uncomplicated
CPT/HCPCS: 99397

== ENCOUNTER 2024-01-01 12:51 | Outpatient (REF) | payer MEDICARE, BC, SELFPAY ==
[2024-01-01 16:08] LABS: MANUAL DIFF FLAG NO
[2024-01-01 16:22] LABS: Basophils Absolute Auto 0.1 X10*3/uL (0.0-0.2); Basophils Percent Auto 0.6 % (0-2); Eosinophils Absolute Auto 0.1 X10*3/uL (0.0-0.4); Eosinophils Percent Auto 1.5 % (0-4); Hematocrit 34.9 % (37.0-47.0); Hemoglobin 11.4 g/dl (12.0-16.0); Imm Gran Abs Auto 0.03 X10*3/uL (0.00-0.03); Imm Gran Pct Auto 0.4 % (0.0-0.4); Lymphocytes Absolute Auto 2.2 X10*3/uL (1.2-4.9); Lymphocytes Percent Auto 28.3 % (20-40); Mean Corpuscular HGB Conc 32.7 g/dl (31.0-35.0); Mean Corpuscular Hemoglobin 30.2 pg (27.0-33.0); Mean Corpuscular Volume 92.6 fL (80.0-98.0); Monocytes Absolute Auto 0.6 X10*3/uL (0.1-1.2); Neutrophils Absolute Auto 4.8 x10*3/uL (2.0-8.3); Neutrophils Percent Auto 61.2 % (45-73); Platelet Count 308 X10*3/uL (160-400); Red Blood Count 3.77 X10*6/uL (4.20-5.50); Red Cell Distribution Width 12.9 % (11.0-16.0); White Blood Count 7.8 X10*3/uL (4.8-10.8)
[2024-01-01 16:33] LABS: Iron 65 mcg/dL (30-160); Percent Iron Saturation 23 % (15-50); Total Iron Binding Capacity 283 mcg/dL (228-428); Unsaturated Iron Binding 218 ug/dL
== END 2024-01-01 12:52 | disposition home or self-care (01) ==
LOC: HO.HMGCLDS 12:51
PROVIDERS: PCP Internal Medicine; Visit Provider Internal Medicine
DX: D64.9 Anemia, unspecified (principal)
CPT/HCPCS: 36415; 83540; 85025

== ENCOUNTER 2024-02-22 08:02 | Outpatient (REF) | payer MEDICARE, BC, SELFPAY ==
[2024-02-22 10:34] LABS: Baso%MD 0.9 %; Hematocrit 36.2 % (37.0-47.0); Hemoglobin 11.5 g/dl (12.0-16.0); IG%MD 0.5 %; Immature Retic Fraction 14.8 % (3.0-15.9); Lymph%MD 33.9 %; Mean Corpuscular HGB Conc 31.8 g/dl (31.0-35.0); Mean Corpuscular Hemoglobin 29.5 pg (27.0-33.0); Mean Corpuscular Volume 92.8 fL (80.0-98.0); Mean Platelet Volume 10.5 fL (9.4-12.3); Mono%MD 9.3 %; Neut%MD 52.4 %; Platelet Count 323 X10*3/uL (160-400); Red Cell Distribution Width 13.4 % (11.0-16.0); Retic HGB Equivalent 31.9 pg (30.0-35.0); Reticulocyte Percent 1.9 % (0.5-1.8); Reticulocytes Absolute 0.073 X10*6/uL (0.026-0.095); White Blood Count 6.4 X10*3/uL (4.8-10.8)
[2024-02-22 10:42] LABS: Lactate Dehydrogenase 219 U/L (122-220)
[2024-02-22 11:10] LABS: Erythrocyte Sedimentation Rate 10 MM/HR (0-20)
[2024-02-22 11:25] LABS: Band Neutrophils Percent 1 % (3-5); Basophils Abs Manual 0.1 X10*3/uL (0.0-0.2); Basophils Percent Manual 2 % (0-2); Lymphocytes Absolute Manual 1.9 X10*3/uL (1.2-4.9); Lymphocytes Percent Manual 30 % (20-40); Monocytes Absolute Manual 0.1 X10*3/uL (0.1-1.2); Monocytes Percent Manual 2 % (2-11); Neutrophils Absolute Manual 4.2 X10*3/uL (2.0-8.3)
[2024-02-22 11:26] LABS: Neutrophils Percent Manual 65 % (45-73); Platelet Estimate NORMAL (NORMAL); Platelet Morphology Comment NORMAL; RBC Morphology NORMAL
[2024-02-24 12:28] LABS: Prot Elec - Albumin 3.8 g/dL (3.8-4.8); Prot Elec - Alpha1 0.3 g/dL (0.2-0.3); Prot Elec - Alpha2 0.7 g/dL (0.5-0.9); Prot Elec - Beta 1 0.4 g/dL (0.4-0.6); Prot Elec - Beta 2 0.4 g/dL (0.2-0.5); Prot Elec - Gamma 0.7 g/dL (0.8-1.7); Prot Elec - Total Protein 6.2 g/dL (6.1-8.1)
[2024-02-24 21:58] LABS: IgA 124 mg/dL (70-320); IgG 749 mg/dL (600-1540); IgM 92 mg/dL (50-300)
== END 2024-02-22 08:03 | disposition home or self-care (01) ==
LOC: HO.HMGCLDS 08:02
PROVIDERS: PCP Internal Medicine; Visit Provider Internal Medicine
DX: D64.9 Anemia, unspecified (principal)
CPT/HCPCS: 36415; 82784; 83615; 84165; 85007; 85027; 85045; 85652; 86334

== ENCOUNTER 2024-03-03 12:24 | Outpatient (AMB) | payer MEDICARE, BC, SELFPAY ==
[2024-03-03 12:30] VITALS: BP 136/80; PULSE 82; O2SAT 96; BMI 30.1
--- NOTE | 2024-03-03 12:30 | A.OFFPC_ITS ---
Vital Signs 03/03/24 12:30 Height 5 ft 3 in Weight 170 lb BMI 30.1 BP 136/80 Blood Pressure Location Lt brachial Position Sitting Pulse 82 Pulse Source Pulse Oximeter Pulse Oximetry (%) 96 Oxygen Delivery Method Room Air Intake Visit Reasons: 2 Mo F/U Intake Note: Pt is here today for 2 months follow up visit. Pt states that she saw a spine doctor 2 weeks ago and she had an injection in her spine. Pt states that at night when she is sitting or laying down for a while she gets pain in her R leg that goes down to her tight. Pt also has pain in her L thumb. Allergies amlodipine Adverse Reaction (Intermediate, Verified 01/01/24 11:51) Edema Tobacco use date assessed: 03/03/24 Fall risk assessment: No Falls in past year Last assessed Fall Risk: 03/03/24 Dental Screening Dental Screen Date: 01/01/24 HPI 2 Mo F/U HPI Details Patient presents for the follow-up on hypertension hyperlipidemia chronic GERD stable on current medications. She complains of chronic bilateral buttock pain radiating to lower extremities. Lumbar spine MRI showed multiple level degenerative changes no significant nerve compression. Patient was evaluated by [facility] and has a trial of injection without significant relief. patient denies lower extremity weakness, change in bowel or bladder function. [facility] Surgical History Hx of appendectomy Family History Father No problems noted. Daughter Substance use disorder Social History Housing: House Patient Tobacco Use Status: Never used Tobacco e-Cigarette/Vaping Use: Never Used service: No Current occupational status: retired Cognitive needs: No Hearing needs: No Vision needs: Yes Questionnaire PHQ-9 Over the last 2 weeks, how often have you been bothered by any of the following problems? 7. Trouble concentrating on things, such as reading the newspaper or watching television: not at all Source: Developed by Drs. Danie Sanchez, Milagros Mace, Gen Miller and colleagues, with an educational rachel from [employer]. Thrive Questionnaire Date Thrive assessed: 12/26/23 I am a: Patient What is your living situation today?: I have a steady place to live Within the past 12 months, did the food you bought not last and you didn't have the money to get more?: I choose not to answer this question Within the past 12 months, did you worry whether your food would run out before you got money to buy more?: Never true Do you have trouble paying for medicines?: No Do you have trouble getting transportation to medical appointments?: No Do you have trouble paying your heating and electricity bill?: No Do you have trouble taking care of your child, family member or friend?: No Do you have trouble with day-to-day activities such as bathing, preparing meals, shopping, managing finances, etc.?: No Are you currently unemployed and looking for a job?: No Are you interested in more education?: No Please select the resources that you would like help with: None Currently or been in a relationship where the following occur: No concerns reported THRIVE Score: 0 KARINA-7 AMB Questionnaire KARINA-7 Date KARINA - 7 assessed: 01/01/24 Source: Developed by Drs. Danie Sanchez, Milagros Mace, Gen Miller and colleagues, with an educational rachel from [employer]. Review of Systems Const All systems reviewed & are unremarkable except as noted in HPI and below Eyes Reports no additional complaints Card Reports no additional complaints Resp Reports no additional complaints GI Reports no additional complaints Reports no additional complaints Physical exam (Primary Care) Vital Signs: Last Vital Signs Pulse 82 03/03/24 12:30 BP 136/80 03/03/24 12:30 Pulse Ox 96 03/03/24 12:30 Oxygen Delivery Method Room Air 03/03/24 12:30 BMI result Body Mass Index 30.1 Tobacco/Smoking Status: Tobacco use Status Tobacco use date assessed 03/03/24 03/03/24 12:34 Patient Tobacco Use Status Never used Tobacco 03/03/24 12:32 e-Cigarette/Vaping Use Never Used 03/03/24 12:32 Thrive Assessment: Date of Thrive Assessment Date Thrive assessed 12/26/23 03/03/24 12:32 Currently or been in a relationship where the following occur: No concerns reported Const General: no acute distress HENMT Throat: Yes posterior oropharynx normal Resp Effort & Inspection: normal respiratory effort Auscultation: clear to auscultation bilaterally Cardio Rhythm: regular rhythm Heart sounds: S1 normal heart sound present and S2 normal heart sound present GI Inspection: Yes normal to inspection Palpation (GI): Soft to palpation Percussion: Yes normal to percussion Auscultation: normal bowel sounds Back/Spine/Pelvis Other: There is no lumbar spine or paraspinal tenderness, straight leg rising 90 degrees bilaterally. 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
== END 2024-03-03 13:44 | disposition home or self-care (01) ==
PROVIDERS: PCP Internal Medicine; Visit Provider Internal Medicine
DX: M54.30 Sciatica, unspecified side (principal); D80.1 Nonfamilial hypogammaglobulinemia; I10 Essential (primary) hypertension; E78.9 Disorder of lipoprotein metabolism, unspecified

== ENCOUNTER → 2024-03-03 12:24 | Outpatient (BNVA) | payer MEDICARE, BC, SELFPAY | PROVIDERS: PCP Internal Medicine; Visit Provider Internal Medicine | DX: M54.30 Sciatica, unspecified side (principal); D80.1 Nonfamilial hypogammaglobulinemia; I10 Essential (primary) hypertension; E78.9 Disorder of lipoprotein metabolism, unspecified | CPT/HCPCS: 99212 ==

== ENCOUNTER 2024-03-09 09:54 | Outpatient (REF) | payer MEDICARE, BC, SELFPAY ==
--- NOTE | ~2024-03-09 | MM_ITS ---
EXAMINATION: MM SCREENING DIGITAL BREAST TOMOSYNTHESIS, BILATERAL CLINICAL INFORMATION: Screening. Asymptomatic. COMPARISON: Mammography: Comparison is made with available priors TECHNIQUE: Digital breast mammography with tomosynthesis is performed in both the craniocaudal and mediolateral oblique views along with computer-aided detection (CAD). FINDINGS: The breasts are heterogeneously dense, which may obscure small masses (ACR BI-RADS breast composition Category c). There are no significant masses, abnormal calcifications, or other abnormalities. MM/MM tomosynthesis screening BI IMPRESSION: No mammographic evidence of malignancy. ASSESSMENT: BI-RADS BI-RADS 2 - Benign Findings RECOMMENDATION: Routine annual mammography screening. 1 year F/U This examination should not preclude the clinical evaluation of a suspicious palpable abnormality. This patient's information was entered into a reminder system with a target due date for their next mammogram. Electronically signed by: Jennifer Bowling DO 03/21/2024 05:28 PM EDT
== END 2024-03-09 09:55 | disposition home or self-care (01) ==
LOC: HO.MAMMO 09:54
PROVIDERS: PCP Internal Medicine; Visit Provider Internal Medicine
DX: Z12.31 Encounter for screening mammogram for malignant neoplasm of breast (principal)
CPT/HCPCS: 77063; 77067

== ENCOUNTER → 2024-03-09 10:15 | Outpatient (BNV) | payer MEDICARE, BC, SELFPAY | PROVIDERS: PCP Internal Medicine; Visit Provider Internal Medicine | DX: Z12.31 Encounter for screening mammogram for malignant neoplasm of breast (principal) | CPT/HCPCS: 77063; 77067 ==

== ENCOUNTER 2024-05-03 10:51 | Outpatient (AMB) | payer MEDICARE, BC, SELFPAY ==
[2024-05-03 10:55] VITALS: BP 130/72; PULSE 85; O2SAT 95; BMI 28.7
--- NOTE | 2024-05-03 10:55 | MHC.PC.OV ---
Vital Signs 05/03/24 10:55 Height 5 ft 4 in Weight 167 lb BMI 28.7 BP 130/72 Blood Pressure Location Lt brachial Position Sitting Pulse 85 Pulse Source Pulse Oximeter Pulse Oximetry (%) 95 Oxygen Delivery Method Room Air Intake Visit Reasons: 2m follow up Intake Note: Pt is here today for 2 months follow up visit. Allergies amlodipine Adverse Reaction (Intermediate, Verified 05/03/24 10:57) Edema Medication List - Last Reconciled 05/03/24 by Cielo Nichols MD acetaminophen ER (Arthritis Pain Relief (acetaminophen) ER) 650 mg PO Q12H albuterol sulfate 90 mcg/actuation 2 puffs PO Q4H PRN 30 days atorvastatin 10 mg PO DAILY baclofen 10 mg PO BID beclomethasone dipropionate 80 mcg/actuation 1 inh inhalation Q12H nystatin 1 appl topical BID PRN 30 days olmesartan-hydrochlorothiazide 40-12.5 mg 1 tab PO DAILY omeprazole 40 mg PO DAILY Tobacco use date assessed: 05/03/24 Dental Screening Dental Screen Date: 01/01/24 HPI 2m follow up HPI Details Pt presents for f/u HTN, hyperlipid, stable on meds. Pt c/o persistent R lateral thigh pain worse when starting to walk and lying down. Patient has been physically active remodeling her house doing a lot of cleaning. She has been getting cortisone injections by [facility] for degenerative lumbar spine disease PFSH Surgical History Hx of appendectomy Family History Father No problems noted. Daughter Substance use disorder Social History Housing: House Patient Tobacco Use Status: Never used Tobacco e-Cigarette/Vaping Use: Never Used service: No Current occupational status: retired Cognitive needs: No Hearing needs: No Vision needs: Yes Questionnaire Thrive Questionnaire Date Thrive assessed: 05/03/24 I am a: Patient What is your living situation today?: I have a steady place to live Within the past 12 months, did the food you bought not last and you didn't have the money to get more?: I choose not to answer this question Within the past 12 months, did you worry whether your food would run out before you got money to buy more?: Never true Do you have trouble paying for medicines?: No Do you have trouble getting transportation to medical appointments?: No Do you have trouble paying your heating and electricity bill?: No Do you have trouble taking care of your child, family member or friend?: No Do you have trouble with day-to-day activities such as bathing, preparing meals, shopping, managing finances, etc.?: No Are you currently unemployed and looking for a job?: No Are you interested in more education?: No Please select the resources that you would like help with: None Currently or been in a relationship where the following occur: No concerns reported THRIVE Score: 0 KARINA-7 AMB Questionnaire KARINA-7 Date KARINA - 7 assessed: 01/01/24 Source: Developed by Drs. Danie Sanchez, Milagros Mace, Gen Miller and colleagues, with an educational rachel from [employer]. Review of Systems Const All systems reviewed & are unremarkable except as noted in HPI and below Eyes Reports no additional complaints ENT Reports no additional complaints Card Reports no additional complaints Resp Reports no additional complaints GI Reports no additional complaints Reports no additional complaints Physical exam (Primary Care) Vital Signs: Last Vital Signs Pulse 85 05/03/24 10:55 BP 130/72 05/03/24 10:55 Pulse Ox 95 05/03/24 10:55 Oxygen Delivery Method Room Air 05/03/24 10:55 BMI result Body Mass Index 28.7 Tobacco/Smoking Status: Tobacco use Status Tobacco use date assessed 05/03/24 05/03/24 11:00 Patient Tobacco Use Status Never used Tobacco 05/03/24 11:00 e-Cigarette/Vaping Use Never Used 05/03/24 11:00 Thrive Assessment: Date of Thrive Assessment Date Thrive assessed 05/03/24 05/03/24 11:06 Currently or been in a relationship where the following occur: No concerns reported Const General: no acute distress HENMT Mouth: Normal oral and palatal mucosa present Eyes General: appearance normal, both eyes and all related structures Resp Effort & Inspection: normal respiratory effort Auscultation: clear to auscultation bilaterally Cardio Rhythm: regular rhythm Heart sounds: S1 normal heart sound present and S2 normal heart sound present GI Inspection: Yes normal to inspection Palpation (GI): Soft to palpation Percussion: Yes normal to percussion Auscultation: normal bowel sounds Extrem Other: There is reproducible tenderness over right trochanteric area, straight leg rising 90 degrees bilaterally there is slightly decreased range of motion of both hips General: Yes no clubbing, cyanosis or edema Coding Level of Care Code Est Pt Level 4 (07940) Diagnoses Hypertension, essential I10 Anemia D64.9 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 Lipid disorder E78.9 Hip pain, right M25.551 Assessment & Plan Assessment & Plan (1) Hypertension, essential: Code(s): I10 - Essential (primary) hypertension Category: Medical Plan: Continue current medications (2) Anemia: Code(s): D64.9 - Anemia, unspecified Category: Medical Plan: Check CBC and iron (3) 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 Panel Fast 3 Months D64.9 - Anemia, unspecified, I10 - Essential (primary) hypertension Complete Blood Count Auto Diff 3 Months D64.9 - Anemia, unspecified, I10 - Essential (primary) hypertension Medications: New albuterol sulfate 0.63 mg (3 mL) inhalation Q6H 75 mL 0RF
--- OUTSIDE RECORDS SUMMARY | 2024-05-04 20:26 | XMS_ITS | Data Portability ---
Author Organization [place] - [facility] Address [address] [place] [address] Care Team Providers Care Foley Artist Name Role Phone KERRIEDEEPAJAVIER LaurenHENRIQUE Primary Care Provider Assessment No assessment recorded. Plan of Treatment Reminders Order Date Submit Date Provider Last Modified By Organization Details Last Modified Time Details Appointments None recorded. Lab None recorded. Referral physical therapist referral - (THIS PRESCRIPT ION EXPIRES 30 DAYS FROM DATE LISTED)PH YSICAL THERAPY REFERRAL S/P SURGERYIC D-10: M70.61 (right), M70.62(Le ft), M70.60(Bi lateral)1 . Core stabiliza tion, hip abductor strengthe tarsha with focus on eccentric strengthe tarsha and balance training. 2. Soft tissue modalitie s including foam rollers as needed.3. Home exercise and stretchin g program.A llow 2-3 visits a week for 6 weeks.Com pleted by: 2023 024 [email or web address] [facility] - [address], [address], 4 14:36:30 Procedures None recorded. Surgeries None recorded. Imaging XR, hip, unilatera l, 2 or 3 view 2023 024 [email or web address] Not available 4 14:36:30 Medication Orders None recorded. Patient TargetsNo targets recorded. Patient InstructionsNo instructions recorded. Reason for Referral Physical Therapist Referral for Pain in right hip joint (THIS PRESCRIPTION EXPIRES 30 DAYS FROM DATE LISTED)PHYSICAL THERAPY REFERRAL S/P SURGERYICD-10: M70.61 (right), M70.62(Left), M70.60(Bilateral)1. Core stabilization, hip abductor strengthening with focus on eccentric strengthening and balance training.2. Soft tissue modalities including foam rollers as needed.3. Home exercise and stretching program.Allow 2-3 visits a week for 6 weeks.Completed by: Referring Physician: Nelson Schmidt, Orthopedic Surgery, [id number] Encounter Date: 08/21/2023 Results Created Date Observation Date Name Description Value Unit Range Abnormal Flag Note LastModifiedBy Organization Detail LastModifiedTime 12/15/19 24 12/13/2023 MRI, lumba r spine , w/o contr ast [facility] MRI- [facility] Access ion Number : [id number] Patien t Name: Linwood Frosta rakesh Record Number : [id number] Date of : 1940 Date of Exam: 2023 Referr ing Physic jose r: Jin Brewster [facility] ([facility]) [address], [address] [place] [address] Exam: MR Lumbar Spine (C-) CPT 00063 Room Descri ption: [facility] Espr 1.5 HISTOR Y: Low back pain. Right lower extrem ity radicu lar pain. TECHNI QUE: Multip lanar multis equenc e MRI of the lumbar spine withou t contra st. COMPAR HOWARD: No prior studie s are availa ble for compar howard at [facility] . FINDIN GS: Subtle retrol isthes is of L2 on L3. The lumbar verteb ral bodies are normal in height . No spondy lolysi s or marrow edema. The L1-L2, L2-L3, and L3-L4 discs are desicc ated. Mild-m oderat e loss of height of L1-L2. Mild loss of height of L2-L3 and L5-S1. Margin al osteop hytes and facet arthro ses are presen t at multip le levels . The visual ized lower thorac ic cord is unrema rkable , and the conus termin ates at L1. Fatty atroph y of the apprentice photographer ior parasp inal muscul ature. No acute retrop eriton eal abnorm ality. L1-L2: Mild concen tric disc-o steoph yte comple x. Mild centra l canal narrow ing. No signif icant forami nal narrow ing. L2-L3: Mild concen tric disc bulge with a superi mposed left centra l disc protru hilton. Mild ligame ntum flavum infold ing and anteri or margin al spurri ng. Mild centra l canal narrow ing. Minima l forami nal narrow ing. L3-L4: Concen tric disc bulge, facet arthro sis, and ligame ntum flavum infold ing. Mild left centra l canal and subart icular recess narrow ing with crowdi ng of the left L4 nerve roots. No imping ement. Mild right and no left forami nal narrow ing. L4-L5: Mild facet arthro sis and ligame ntum flavum infold ing. No signif icant centra l canal narrow ing. No signif icant forami nal narrow ing. L5-S1 subtle left apprentice photographer ior margin al spurri ng. Minima l left centra l canal narrow ing. No idris sing nerve root imping ement. No forami nal stenos is. IMPRES HILTON: Degene rative change s of the lumbar spine with centra l canal and forami nal narrow ing as noted above. No nerve root imping ement. Electr onical ly Signed By: Louis Coppola MD [email or web address] [facility] ([facility]) [address] [place], [address], 12/18/2023 14:04:51 Result Notes None recorded. Problems Name Problem SNOMED Code Status Onset Date Resolution Date Notes Provider Name and Address Organization Details Recorded Time Bilateral hip joint pain 2914548710452 9100 Active 2023 Lisa Brewster CNP [address], [place], [address], [facility] 4 12:36:25 Low back pain 001511774 Active 2023 Lisa Brewster CNP [address], [place], [address], [facility] 4 12:36:31 Pain in right hip joint 0967499356068 02 Active 2023 Nelson Schmidt PA-C [address], [place], [address], [facility] 4 09:59:48 Trochanteri c bursitis of right hip 8934748785535 00 Active 2023 Nelson Schmidt PA-C [address], [place], [address], [facility] 4 10:21:13 Problem Notes None recorded. Procedures Surgical History Date Name Laterality Status Provider Name and Address Organization Details Recorded Time Hip Kenalog 1cc Injection, L/R completed Nelson Schmidt PA-C [address], [place], [address], [facility] 08/21/2023 10:23:01 Imaging Results Imaging Date Name Status LastModified by Organiz ation Details LastModified Time 12/13/2023 MRI, lumbar spine, w/o contrast completed [email or web address] [facility] ([facility]) [address] [facility], [place], [address], 12/18/2023 14:04:51 Procedure Notes None recorded. Medical Equipment None Reported. Allergies No known drug allergies Medications Name Sig Start Date Stop Date Status Note LastModified by Organization Details LastModified Time losartan 50 mg tablet TAKE 1 TABLET BY MOUTH DAILY active Not Available Not Available No t Available atorvastatin 10 mg tablet TAKE 1 TABLET BY MOUTH DAILY active Not Available Not Available No t Available prednisone 20 mg tablet TAKE 1 TABLET BY MOUTH DAILY active Not Available Not Available No t Available omeprazole 40 mg capsule,delay ed release TAKE 1 CAPSULE BY MOUTH DAILY active Not Available Not Available No t Available nystatin 100,000 unit/gram topical cream APPLY TOPICALLY TO THE AFFECTED AREA TWICE DAILY NEEDED FOR RASH active Not Available Not Available No t Available losartan 25 mg tablet TAKE 1 TABLET BY MOUTH DAILY FOR BLOOD PRESSURE active Not Available Not Available No t Available olmesartan 40 mg-hydrochlor othiazide 12.5 mg tablet TAKE 1 TABLET BY MOUTH DAILY active Not Available Not Available No t Available Qvar RediHaler 80 mcg/actuation HFA breath activated aerosol INHALE 1 PUFF BY MOUTH EVERY 12 HOURS active Not Available Not Available No t Available Vitals Date Recorded Body height Body mass index (BMI) Body weight Provider Name and Address Organization Details Last Updated DateTime 08/21/2023 160.02 cm 30.1 kg/m2 64891.7 g Nelson Schmidt PA-C [address], [place], [address], [place] - [facility] 08/21/2023 09:57:15 Date Recorded Body height Body mass index (BMI) Body weight Provider Name and Address Organization Details Last Updated DateTime 12/09/2023 160.02 cm 30.1 kg/m2 73989.7 g ABEL Acharya N [facility] 12/09/2023 10:35:35 Social History None recorded. Functional Status None recorded. Mental Status None recorded. Family History Nothing Reported. Medical History Condition Response Arthritis Y Hypertension Y Asthma Y Gynecological HistoryNo gynecological history recorded. Obstetrics History GPAL:G 0 P 0 0 0 0 Past Encounters Encounter ID Performer Location Encounter Start Date Encounter Closed Date Diagnosis/Indication Diagnosis SNOMED-CT Code Diagnosis ICD10 Code [id number] Nelson Schmidt [place] [address] 08/21/2023 09:42:27 09/06/2023 14:36:30 Pain in right hip joint [id number] 10246 M25.551 Trochanter ic bursitis of right hip 7904812277 45185 M70.61 [id number] Lisa Brewster, [employer] [address] [place] [address] 12/09/2023 10:07:43 12/24/2023 10:34:22 Bilateral hip joint pain [id number] 0301821 M25.551 Low back pain 778075882 M54.50 Health Concerns Section Related Observation LastModified by Organization Detai ls LastModified Time None Recorded Concern Status LastModified by Organization Details LastModified Time None Recorded Advance Directives Directive None Recorded Payers Encounter Date Sequence Insurance Name Policy Number Policy Hughes Covered Member ID Hughes Member ID Guarantor Name 08/21/2023 2 [place] [employer] [facility] Katherine Frost [id number] Katherine Frost 08/21/2023 1 [place] [facility] Katherine Frost [id number] Katherine Frost 12/09/2023 2 [place] [employer] 104 Katherine Frost [id number] Katherine Frost 12/09/2023 1 [place] [facility] Katherine Frost [id number] Katherine Frost Notes Date Note Type Note Provider Name and Address Organization Details Recorded Time 08/21/2023 text/html I am seeing the patient today under the supervision of Dr. Beyer who was available but who did not see the patient. History: Patient is here today for evaluation of her right hip pain. She reports intermittent discomfort this been ongoing for several months. She just bought a new treadmill was hoping to use it more she remains a little bit frustrated by her inability to do so because of now her lateral hip pain. She was treated in physical therapy for her low back has been doing those exercises has not had any formal therapy for her hip. PMH/PSH/MEDS/ALL/FMH /SOC HX/ ROS: All reviewed in detail per my medical intake sheet Mental Status: Alert and oriented x3. Normal insight, affect, and grooming OUTREACH ASSISTANT: Gross motor coordination is intact. No spasticity or clonus noted. Extremities: Calves are soft and nontender. Skin on lower extremities is intact. Palpable pedal pulses bilaterally Orthopedic Exam: Right hip exam demonstrates flexion to 90?? with pain, external rotates 30?? internal rotates 10?? with pain, pain with passive logrolling maneuver, negative straight leg raise test, 2+ palpable tenderness along the greater trochanter. X-rays ordered, obtained and reviewed taken previously at [facility] reveal AP frog lateral of the pelvis demonstrates right hip osteoarthritis moderate, degenerative changes and involving the greater trochanter, no other bony abnormalities appreciated. Assessment: #1. Right hip osteoarthritis #2 right trochanteric bursitis Plan: The patient was thoroughly counseled today regarding their hip condition, its natural history, and the treatment options including physical therapy, medication, and corticosteroid injection to the right greater trochanteric bursa the patient is interested in receiving an injection with corticosteroid. Patient understands definitive care for her hip problem would be hip arthroplasty which she is not interested in pursuing at this time. We will try to manage her trochanteric bursitis symptoms today. Nelson Schmidt PA-C [address], [place], [address], [facility] 08/21/2023 10:33:31 12/09/2023 text/html Katherine is a pleasant 83-year-old female who was seen previously in urgent care in July found to have some right hip arthritis as well as bursitis. She is here complaining of low back pain with radiating pain down the right lower extremity. Lisa Brewster, [employer] [address], [place], [address], [facility] 12/09/2023 12:36:48 OBGyn Episode No OBEpisode recorded.
--- OUTSIDE RECORDS SUMMARY | 2024-05-04 20:26 | XMS_ITS | Data Portability ---
Author Organization [facility] [address] Address [address] [place] [address] Assessment No assessment recorded. Plan of Treatment Reminders Order Date Submit Date Provider Last Modified By Organization Details Last Modified Time Details Appointments None recorded. Lab None recorded. Referral None recorded. Procedures None recorded. Surgeries None recorded. Imaging None recorded. Medication Orders naproxen 500 mg tablet 2022 023 [employer] #[id number], [address] [place], [place], [id number], 11:57:26 Patient TargetsNo targets recorded. Patient Instructions Encounter Date Encounter Id Patient Instructions Last Modified By Organization Details Last Modified Time 06/16/2022 [id number] neck pain: care instructions [email or web address] Not available 06/16/2022 11:57:15 - Good neck mechanics, posture, modalities reviewed with patient. - Heat 10-15 minutes 3 times a day, then neck stretches as tolerated not beyond pain. - Next support/pillow at bedtime. - No lifting or straining until symptoms resolve. - Follow-up with your Primary provider in 2-3 weeks for a recheck, or [facility] sooner if new or worsening symptoms. - If you develop severe neck pain that is not relieved with medications, have fevers, weakness or numbness to your upper extremities (arms/hand) or lower extremities (legs/feet) immediately go to Emergency room for further evaluation. - Narcotics are not recommended for neck or back pain, if you feel this is needed you will need to speak to your Primary provider or a pain specialist. - Use over the counter NSAIDS: ibuprofen, aspirin, naprosyn, motrin as directed by bottle -as needed for pain. If you have a history of gastric bypass, bleeding ulcers, kidney disease, or have been told you should not use NSAIDS then you may use over the counter tylenol as needed for pain. [email or web address] Not available 06/16/2022 11:57:15 Reason for Referral None Reported. Problems Name Problem SNOMED Code Status Onset Date Resolution Date Notes Provider Name and Address Organization Details Recorded Time Asthma 666143015 Active 2022 Vicenta Henrietta null, PA - [facility] 3 10:52:15 Hyperlipidemia 64623364 Active 2022 Vicenta Susan null, PA - [facility] 3 10:52:26 Hypertensive disorder 01965649 Active 2022 Vicenta Susan null, PA - [facility] 10:52:31 Problem Notes None recorded. Procedures Surgical History Date Name Laterality Status Provider Name and Address Organization Details Recorded Time Appendectomy completed Vicentawilma Davis PA - [facility] 06/16/2022 10:53:11 Imaging Results None recorded. Procedure Notes None recorded. Medical Equipment None Reported. Allergies No known drug allergies Medications Name Sig Start Date Stop Date Status Note LastModified by Organization Details LastModified Time cetirizine 10 mg tablet TAKE 1 TABLET BY MOUTH EVERY DAY active Not Available Not Available No t Available atorvastati n 10 mg tablet TAKE 1 TABLET BY MOUTH DAILY active Not Available Not Available No t Available amlodipine 2.5 mg tablet TAKE 1 TABLET BY MOUTH DAILY active Not Available Not Available No t Available amlodipine 5 mg tablet TAKE 1 TABLET BY MOUTH DAILY active Not Available Not Available No t Available omeprazole 40 mg capsule,del ayed release TAKE 1 CAPSULE BY MOUTH DAILY active Not Available Not Available No t Available nystatin 100,000 unit/gram topical cream APPLY TOPICALLY TO THE AFFECTED AREA TWICE DAILY NEEDED FOR RASH 06/16 completed Not Available Not Available Not Available albuterol sulfate HFA 90 mcg/actuati on aerosol inhaler INHALE 2 PUFFS BY MOUTH EVERY 4 HOURS NEEDED FOR WHEEZING active Not Available Not Available No t Available naproxen 500 mg tablet Take 1 tablet twice a day by oral route with meals for 10 days. 2022 active Not Available Not Available Not Avai lable Qvar RediHaler 80 mcg/actuati on HFA breath activated aerosol INHALE 1 PUFF INTO THE LUNGS EVERY 12 HOURS active Not Available Not Available No t Available Vitals Date Recorded Body weight Body mass index (BMI) Body height Oxygen saturation Oxygen saturation in Arterial blood by Pulse oximetry Heart rate Respiratory rate Body temperature Systolic blood pressure Diastolic blood pressure Provider Name and Address Organization Details Last Updated DateTime 3 80630.7 g 29.2 kg/m2 162.56 cm 95 % 95 % 75 /min 20 /min 98 [degF] 149 mm[Hg] 80 mm[Hg] Vicenta Davis PA [facility] 10:54:30 Social History Question Answer Notes LastModified by Organizat ion Details LastModified Time Tobacco Smoking Status Never Smoker [facility] 06/16/2022 10:52:40 What Is Your Level Of Alcohol Consumption? Occasional Information not available 06/16/2022 How Many Times Per Week Do You Consume Alcohol? <1 Time Per Week Information not available 06/16/2022 Have You Had Direct Contact, Or Contact During Intimacy, With Monkeypox Rash, Scabs, Or Body Fluids From A Person With Monkeypox? No Information not available 06/16/2022 Do You Use Any Illicit Or Recreational Drugs? No Information not available 06/16/2022 Have You Recently Traveled Abroad? No Information not available 06/16/2022 Do You Or Have You Ever Used Any Other Forms Of Tobacco Or Nicotine? No Information not available 06/16/2022 Sex: Unknown Functional Status None recorded. Mental Status None recorded. Family History Relationship Description Onset Age of this Age Resolved Age Notes LastModified by Organization Details LastModified Time Father No current problems or disability Not available 06/16 10:52:33 Mother No current problems or disability Not available 06/16 10:52:33 Medical History No medical history recorded. Gynecological HistoryNo gynecological history recorded. Obstetrics History GPAL:G 0 P 0 0 0 0 Immunizations Vaccine Type Date Status Note Provider Nam e and Address Organization Details Recorded Time Influenza, high-dose, trivalent, PF 8 completed Vicenta Susan null, PA - [facility] 06/16/2022 10:51:44 zoster recombinant 2 completed Vicenta Susan null, PA - [facility] 06/16/2022 10:51:44 Pneumococcal conjugate PCV 13 6 completed Vicenta Susan null, PA - [facility] 06/16/2022 10:51:44 zoster live 4 completed Vicenta Henrietta null, PA - [facility] 06/16/2022 10:51:44 COVID-19, mRNA, LNP-S, PF, 30 mcg/0.3 mL dose 1 completed Vicenta Susan null, PA - [facility] 06/16/2022 10:51:44 Influenza, split virus, trivalent, preservative 5 completed Vicenta Henrietta null, PA - [facility] 06/16/2022 10:51:44 Influenza, high-dose, quadrivalent, PF 0 completed Vicenta Henrietta null, PA - [facility] 06/16/2022 10:51:44 Influenza, high-dose, trivalent, PF 9 completed Vicenta Henrietta null, PA - [facility] 06/16/2022 10:51:44 COVID-19, mRNA, LNP-S, PF, 30 mcg/0.3 mL dose 1 completed Vicenta Susan null, PA - [facility] 06/16/2022 10:51:44 Influenza, high-dose, quadrivalent, PF 2 completed Vicenta Susan null, PA - [facility] 06/16/2022 10:51:44 zoster recombinant 2 completed Vicenta Susan null, PA - [facility] 06/16/2022 10:51:44 Td (adult), 2 Lf tetanus toxoid, preservative free, adsorbed 4 completed Vicenta Henrietta null, PA - [facility] 06/16/2022 10:51:44 Influenza, split virus, trivalent, preservative 1 completed Vicenta Henrietta null, PA - [facility] 06/16/2022 10:51:44 Influenza, split virus, trivalent, preservative 2 completed Vicenta Susan null, PA - [facility] 06/16/2022 10:51:44 COVID-19, mRNA, LNP-S, PF, 30 mcg/0.3 mL dose 1 completed Vicenta Henrietta null, PA - [facility] 06/16/2022 10:51:44 pneumococcal polysaccharide PPV23 0 completed Vicenta Susan null, PA - [facility] 06/16/2022 10:51:44 COVID-19, mRNA, LNP-S, PF, 30 mcg/0.3 mL dose, memo-sucrose 2 completed Vicenta Susan null, PA - [facility] 06/16/2022 10:51:44 Influenza, high-dose, trivalent, PF 6 completed Vicenta Henrietta null, PA - [facility] 06/16/2022 10:51:44 COVID-19, mRNA, LNP-S, bivalent, PF, 30 mcg/0.3 mL dose 2 completed Vicenta Henrietta null, PA - [facility] 06/16/2022 10:51:44 Influenza, split virus, trivalent, preservative 3 completed Vicenta Susan null, PA - [facility] 06/16/2022 10:51:44 Influenza, adjuvanted, quadrivalent, PF 1 completed Vicenta Susan null, PA - [facility] 06/16/2022 10:51:44 Influenza, high-dose, trivalent, PF 7 completed Vicenta Henrietta null, PA - [facility] 06/16/2022 10:51:44 Influenza, split virus, trivalent, preservative 4 completed Vicenta Susan null, PA - [facility] 06/16/2022 10:51:45 Past Encounters Encounter ID Performer Location Encounter Start Date Encounter Closed Date Diagnosis/Indication Diagnosis SNOMED-CT Code Diagnosis ICD10 Code [id number] [address] [facility] [place] [address] 04/10/2020 14:12:05 04/10/2020 16:32:19 [id number] [address] [facility] [place] [address] 09/27/2015 15:09:30 09/27/2015 15:37:04 [id number] [address] [facility] [place] [address] 05/19/2016 11:51:38 05/19/2016 13:35:44 [id number] [address] [facility] [place] [address] 07/21/2019 12:37:35 07/21/2019 13:31:36 [id number] [address] [facility] [place] [address] 09/19/2015 16:39:37 09/19/2015 18:00:01 [id number] [address] [facility] [place] [address] 04/22/2017 10:25:15 04/22/2017 13:33:12 [id number] [address] [facility] [place] [address] 01/31/2017 12:39:47 01/31/2017 13:01:35 [id number] [address] [facility] [place] [address] 05/11/2021 08:48:36 05/11/2021 10:59:34 [id number] [address] [facility] [place] [address] 02/26/2018 08:24:54 02/26/2018 08:55:58 [id number] [address] [facility] [place] [address] 11/29/2019 10:32:17 11/29/2019 11:15:12 [id number] [address] [facility] [place] [address] 06/07/2019 10:44:03 06/07/2019 12:16:46 [id number] [place] [address] [facility] [place] [address] 06/16/2022 10:14:15 06/16/2022 12:01:50 Muscle spasm of cervical muscle of neck [id number] 04 M62.838 Health Concerns Section Related Observation LastModified by Organization Detai ls LastModified Time None Recorded Concern Status LastModified by Organization Details LastModified Time None Recorded Advance Directives Directive None Recorded Payers Encounter Date Sequence Insurance Name Policy Number Policy Hughes Covered Member ID Hughes Member ID Guarantor Name 07/21/2019 1 [place] Katherine A Stosz [id number] 2 Katherine Stosz 07/21/2019 2 [place] 104 Katherine A Stosz [id number] Katherine Stosz 11/29/2019 1 [place] Katherine A Stosz [id number] 2 Katherine Stosz 11/29/2019 2 [place] 104 Katherine A Stosz [id number] Katherine Stosz 04/10/2020 1 [place] [place] Katherine A Stosz [id number] 2 Katherine Stosz 04/10/2020 2 [place] 104 Katherine A Stosz [id number] Katherine Stosz 05/11/2021 1 [place] Katherine A Stosz [id number] 2 Katherine Stosz 05/11/2021 2 [place] 104 Katherine A Stosz [id number] Katherine Stosz 06/16/2022 1 [place] Katherine A Stosz [id number] 2 Katherine Stosz 06/16/2022 2 [place] 104 Katherine Frost [id number] Katherine Santosh Notes Date Note Type Note Provider Name and Address Organization Details Recorded Time 06/16/2022 text/html Neck UCReported bypatient.Notes:le ft sided neck spam x 2 day pain radiating from posterior left neck to left shoulder girdle . denies any trauma , denies any HX of left shoulder or cervical problems. denies any fever , sob, or respiratory distress. Constnatine West NP [address] [place], [address], PA - [facility] 06/16/2022 11:57:39 OBGyn Episode No OBEpisode recorded.
== END 2024-05-03 11:51 | disposition home or self-care (01) ==
PROVIDERS: PCP Internal Medicine; Visit Provider Internal Medicine
DX: I10 Essential (primary) hypertension (principal); D64.9 Anemia, unspecified; D80.1 Nonfamilial hypogammaglobulinemia; E78.9 Disorder of lipoprotein metabolism, unspecified; M25.551 Pain in right hip

== ENCOUNTER → 2024-05-03 10:51 | Outpatient (BNVA) | payer MEDICARE, BC, SELFPAY | PROVIDERS: PCP Internal Medicine; Visit Provider Internal Medicine | DX: I10 Essential (primary) hypertension (principal); D64.9 Anemia, unspecified; D80.1 Nonfamilial hypogammaglobulinemia; E78.9 Disorder of lipoprotein metabolism, unspecified; M25.551 Pain in right hip | CPT/HCPCS: 99212 ==

== ENCOUNTER 2024-08-02 09:57 | Outpatient (AMB) | payer MEDICARE, BC, SELFPAY ==
[2024-08-02 10:07] VITALS: BP 120/68; PULSE 86; RESP 18; TEMP 36.8; O2SAT 97; BMI 28.7
--- NOTE | 2024-08-02 10:07 | MHC.PC.OV ---
Vital Signs 08/02/24 10:07 Height 5 ft 4 in Weight 167 lb BMI 28.7 BP 120/68 Blood Pressure Location Lt brachial Position Sitting Respiration 18 Pulse 86 Pulse Source Pulse Oximeter Temp 98.3 F Temp Source Oral Pulse Oximetry (%) 97 Oxygen Delivery Method Room Air Intake Visit Reasons: 3 months follow up Intake Note: Pt is here today for 3 months follow up visit pt needs a refill on nystatin cream. Pt states that she is still having pain in her R leg groin area. Pt also states that the back of her legs feels weird. Allergies amlodipine Adverse Reaction (Intermediate, Verified 08/02/24 10:08) Edema Medication List - Last Reconciled 08/02/24 by Cielo Nichols MD acetaminophen ER (Arthritis Pain Relief (acetaminophen) ER) 650 mg PO Q12H albuterol sulfate 90 mcg/actuation 2 puffs PO Q4H PRN 30 days albuterol sulfate 0.63 mg (3 mL) inhalation Q6H atorvastatin 10 mg PO DAILY baclofen 10 mg PO BID beclomethasone dipropionate 80 mcg/actuation 1 inh inhalation Q12H nystatin 1 appl topical BID PRN 30 days olmesartan-hydrochlorothiazide 40-12.5 mg 1 tab PO DAILY omeprazole 40 mg PO DAILY Tobacco use date assessed: 08/02/24 Fall risk assessment: No Falls in past year Last assessed Fall Risk: 08/02/24 Dental Screening Dental Screen Date: 08/02/24 Did you have a dental visit in the last 12 months?: Yes Did you have a dental problem in the last 6 months where you did not have access to dental care?: No Was dental information given to patient?: Patient has dentist HPI 3 months follow up HPI Details Pt presents for f/u HTN, hyperlipid. Pt c/o persistent R buttock area pain radiating to right lower extremity worse when sitting for long time or walking. Patient had a right lateral thigh, improved after cortisone injection. She had a physical therapy for the last 2 years on and off with only temporary relief but patient has not been doing home exercises. [facility] History Hx of appendectomy Family History Father No problems noted. Daughter Substance use disorder Social History Housing: House Patient Tobacco Use Status: Never used Tobacco e-Cigarette/Vaping Use: Never Used service: No Current occupational status: retired Cognitive needs: No Hearing needs: No Vision needs: Yes Questionnaire PHQ-9 Over the last 2 weeks, how often have you been bothered by any of the following problems? 1. Little interest or pleasure in doing things: not at all 2. Feeling down, depressed, or hopeless: not at all 3. Trouble falling or staying asleep, or sleeping too much: not at all 4. Feeling tired or having little energy: not at all 5. Poor appetite or overeating: not at all 6. Feeling bad about yourself - or that you are a failure or have let yourself or your family down: not at all 7. Trouble concentrating on things, such as reading the newspaper or watching television: not at all 8. Moving or speaking so slowly that other people could have noticed. Or the opposite - being so fidgety or restless that you have been moving around a lot more than usual: not at all 9. Thoughts that you would be better off or of hurting yourself in some way: not at all Total score: 0 Depression Screening Interpretation: Negative Depression Screening Done: Yes 01637 - PHQ-9 Billing: Yes Source: Developed by Drs. Danie Sanchez, Milagros Mace, Gen Miller and colleagues, with an educational rachel from [employer] Thrive Questionnaire Date Thrive assessed: 08/02/24 I am a: Patient What is your living situation today?: I have a steady place to live Within the past 12 months, did the food you bought not last and you didn't have the money to get more?: Never true Within the past 12 months, did you worry whether your food would run out before you got money to buy more?: Never true Do you have trouble paying for medicines?: No Do you have trouble getting transportation to medical appointments?: No Do you have trouble paying your heating and electricity bill?: No Do you have trouble taking care of your child, family member or friend?: No Do you have trouble with day-to-day activities such as bathing, preparing meals, shopping, managing finances, etc.?: No Are you currently unemployed and looking for a job?: No Are you interested in more education?: No Please select the resources that you would like help with: None Currently or been in a relationship where the following occur: No concerns reported THRIVE Score: 0 AUDIT C Alcohol Use Questionnaire (AUDIT-C) 1. How often do you have a drink containing alcohol?: Monthly or less 2. How many drinks containing alcohol do you have on a typical day when you are drinking?: 1 or 2 3. How often do you have six or more drinks on one occasion?: Never Total Score: 1 KARINA-7 AMB Questionnaire KARINA-7 Date KARINA - 7 assessed: 01/01/24 Feeling nervous, anxious, or on edge: 0 = Not at all Not being able to stop or control worryin = Not at all Worrying too much about different things: 0 = Not at all Trouble relaxin = Not at all Being so restless that it is hard to sit still: 0 = Not at all Becoming easily annoyed or irritable: 0 = Not at all Feeling afraid as if something awful might happen: 0 = Not at all Total KARINA-7 score (0-4 normal; 5-9 mild; 10-14 moderate; 15-21 severe): 0 Source: Developed by Drs. Danie Sanchez, Milagros Mace, Gen Miller and colleagues, with an educational rachel from [employer] KARINA-7 Assessment Billing KARINA-7 Assessment Tool: KARINA-7 Assessment 73922 Review of Systems Const All systems reviewed & are unremarkable except as noted in HPI and below Eyes Reports no additional complaints ENT Reports no additional complaints Card Reports no additional complaints Resp Reports no additional complaints GI Reports no additional complaints Physical exam (Primary Care) Vital Signs: Last Vital Signs Temp 98.3 F 08/02/24 10:07 Pulse 86 08/02/24 10:07 Resp 18 08/02/24 10:07 BP 120/68 08/02/24 10:07 Pulse Ox 97 08/02/24 10:07 Oxygen Delivery Method Room Air 08/02/24 10:07 BMI result Body Mass Index 28.7 Tobacco/Smoking Status: Tobacco use Status Tobacco use date assessed 08/02/24 08/02/24 10:11 Patient Tobacco Use Status Never used Tobacco 08/02/24 10:11 e-Cigarette/Vaping Use Never Used 08/02/24 10:11 PHQ-9: PHQ-9 Score PHQ-9: Total score 0 08/02/24 10:11 Depression Screening Interpretation: Negative Thrive Assessment: Date of Thrive Assessment Date Thrive assessed 08/02/24 08/02/24 10:11 Currently or been in a relationship where the following occur: No concerns reported Const General: no acute distress HENMT Head: Yes normal to inspection Neck Neck: Yes no lymphadenopathy Resp Effort & Inspection: normal respiratory effort Auscultation: clear to auscultation bilaterally Cardio Rhythm: regular rhythm Heart sounds: S1 normal heart sound present and S2 normal heart sound present Extrem Other: Right hip with a full range of motion, there is localized tenderness over posterior buttock,straight leg rising 90 degrees bilaterally General: Yes no clubbing, cyanosis or edema Coding Level of Care Code Est Pt Level 4 (47382) Diagnoses Piriformis syndrome of right side G57.01 Asthma, moderate persistent J45.40 Hypertension, essential I10 Additional Codes KARINA-7 Assessment Billing - KARINA-7 Assessment Tool: KARINA-7 Assessment 29731 ([id number]) PHQ-9 - 82958 - PHQ-9 Billing: Yes ([id number]) Assessment & Plan Assessment & Plan (1) Piriformis syndrome of right side: Code(s): G57.01 - Lesion of sciatic nerve, right lower limb Category: Medical Plan: Patient was given home stretching exercises. (2) Asthma, moderate persistent: Code(s): J45.40 - Moderate persistent asthma, uncomplicated Category: Medical Plan: Continue beclomethasone inhaler (3) Hypertension, essential: Code(s): I10 - Essential (primary) hypertension Category: Medical Plan: Add 2.5 mg of amlodipine to current medications follow-up in 2 months Medications: New amlodipine 2.5 mg PO DAILY 90 tabs 1RF
--- OUTSIDE RECORDS SUMMARY | 2024-08-02 11:28 | XMS_ITS ---
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 Generated for Printi ng/Fajordanag/eTransmitting on:?08/02/2024 11:28 AM EDT
--- OUTSIDE RECORDS SUMMARY | 2024-08-02 11:28 | XMS_ITS | Data Portability ---
Author Organization [place] - [facility], [facility] Address [address] [place] [address] Care Team Providers Care Mailer Name Role Phone KERRIEDEEPAJAVIER LaurenHENRIQUE Primary Care Provider [phone] Assessment No assessment recorded. Plan of Treatment [...] 2023 024 [facility] - [address], [address], 4 14:36:30 Procedures None recorded. Surgeries None [...] by: Referring Physician: Nelson Schmidt, Orthopedic Surgery, [id number] Encounter Date: 08/21/2023 Results Created Date Observation Date Name Description Value Unit Range Abnormal Flag Note LastModifiedBy Organization Detail LastModifiedTime 12/15/19 24 12/13/2023 MRI, lumba r spine , w/o contr ast [facility]- [facility] Access ion Number : [id number] Patien t Name: Linwood Frosta rakesh Record Number : [id number] Date of : 1940 Date of Exam: 2023 Referr ing Physic jose r: Jin [facility] [address], [address] [facility] [place] [address] Exam: MR Lumbar Spine (C-) CPT 87689 Room Descri ption: [facility] Espr 1.5 HISTOR Y: Low back pain. Right lower extrem ity radicu lar pain. TECHNI QUE: Multip lanar multis equenc e MRI of the lumbar spine withou t contra st. COMPAR HOWARD: No prior studie s are availa ble for compar howard at [facility] . FINDIN [...] at L1. Fatty atroph y of the boom worker ior parasp inal muscul ature. No acute [...] forami nal narrow ing. L5-S1 subtle left boom worker ior margin al spurri ng. Minima l left centra l canal narrow ing. No idris sing nerve root imping ement. No forami nal stenos is. IMPRES HILTON: Degene rative change s of the lumbar spine with centra l canal and forami nal narrow ing as noted above. No nerve root imping ement. Electr onical ly Signed By: Louis Coppola MD [email or web address] [facility] ([facility]) [address] [place], [address], 12/18/2023 14:04:51 Result Notes None recorded. Problems Name Problem SNOMED Code Status Onset Date Resolution Date Notes Provider Name and Address Organization Details Recorded Time Bilateral hip joint pain 3547572738943 9100 Active 2023 Lisa Brewster CNP [address], [place], [address], [facility] 4 12:36:25 Low back pain 004390014 Active 2023 Lisa Brewster CNP [address], [place], [address], [facility] 4 12:36:31 Pain in right hip joint 2787434368439 02 Active 2023 Nelson Schmidt PA-C [address], [place], [address], [facility] 4 09:59:48 Trochanteri c bursitis of right hip 8493344541186 00 Active 2023 Nelson Schmidt PA-C [address], [place], [address], [facility] 4 10:21:13 Problem Notes None recorded. Procedures Surgical History Date Name Laterality Status Provider Name and Address Organization Details Recorded Time Hip Kenalog 1cc Injection, L/R completed Nelson Schmidt PA-C [address], [place], [address], [facility] 08/21/2023 10:23:01 Imaging Results Imaging Date Name Status LastModified by Organiz ation Details LastModified Time 12/13/2023 MRI, lumbar spine, w/o contrast completed [email or web address] [facility] ([facility]) [address], [place], [address], 12/18/2023 14:04:51 Procedure Notes None recorded. Medical [...] Updated DateTime 08/21/2023 160.02 cm 30.1 kg/m2 21479.7 g Nelson Schmidt PA-C [address], [place], [address], [place] - [facility] 08/21/2023 09:57:15 Date Recorded Body height Body mass index (BMI) Body weight Provider Name and Address Organization Details Last Updated DateTime 12/09/2023 160.02 cm 30.1 kg/m2 01557.7 g ABEL Acharya N [facility] 12/09/2023 10:35:35 Social History None recorded. Functional Status None recorded. Mental Status None recorded. Family History Nothing Reported. Medical History Condition Response Arthritis Y Hypertension Y Asthma Y Gynecological HistoryNo gynecological history recorded. Obstetrics History GPAL:G 0 P 0 0 0 0 Past Encounters Encounter ID Performer Location Encounter Start Date Encounter Closed Date Diagnosis/Indication Diagnosis SNOMED-CT Code Diagnosis ICD10 Code Diagnosis Note [id number] Nelson Schmidt [place] [address] 08/21/2023 09:42:27 09/06/2023 14:36:30 Pain in right hip joint 4964232965 82484 M25.551 Trochanter ic bursitis of right hip 2265084273 98524 M70.61 [id number] Lisa Brewster, [address] [place] [address] 12/09/2023 10:07:43 12/24/2023 10:34:22 Bilateral hip joint pain 3489392603 5740608 M25.551 Low back pain 369624681 M54.50 Health Concerns Section Related Observation LastModified by Organization Detai ls LastModified Time None Recorded Concern Status LastModified by Organization Details LastModified Time None Recorded Advance Directives Directive None Recorded Payers Encounter Date Sequence Insurance Name Policy Number Policy Hughes Covered Member ID Hughes Member ID Guarantor Name 08/21/2023 2 [place] [facility] [employer] [facility] Katherine Frost [id number] Katherine Frost 08/21/2023 1 [place]ICARE B[place] [facility] Katherine Frost [id number] Katherine Frost 12/09/2023 2 [place] [employer] [place] [employer] [id number] Katherine Myersz [id number] Katherine Frost 12/09/2023 1 [place] [facility] Katherine Myersz [id number] Katherine Frost Notes Date Note Type [...] oriented x3. Normal insight, affect, and grooming [place]: Gross motor coordination is intact. No spasticity or clonus noted. Extremities: Calves are soft and nontender. Skin on lower extremities is intact. Palpable pedal pulses bilaterally Orthopedic Exam: Right hip exam demonstrates flexion to 90? ? ? with pain, external rotates 30? ? ? internal rotates 10? ? ? with pain, pain with passive logrolling maneuver, negative straight leg raise test, 2+ palpable tenderness along the greater trochanter. X-rays ordered, obtained and reviewed taken previously at [facility] reveal AP frog lateral of the pelvis [...] bursitis symptoms today. Nelson Schmidt PA-C [address], [place], [address], [facility] 08/21/2023 10:33:31 12/09/2023 text/html Katherine is a pleasant 83-year-old female who was seen previously in urgent care in July found to have some right hip arthritis as well as bursitis. She is here complaining of low back pain with radiating pain down the right lower extremity. Lisa Brewster, COST AND RISK ANALYSIS MANAGER [address], [place], [address], [facility] 12/09/2023 12:36:48 OBGyn Episode No OBEpisode recorded.
--- OUTSIDE RECORDS SUMMARY | 2024-08-02 11:28 | XMS_ITS ---
Author Organization [facility] Lizbeth madina Uriah Address [address] [place] [address] Care Team Providers Care Public Policy Mediator Name Role Phone Cielo Nichols MD Primary Care Provider Colton Santiago Unavailable [phone] Allergies No Known Allergies REASON FOR VISIT Foot pain Medications Medication SIG (Take, Route, Fr equency, Duration) Notes Start Date End Date Status Atorvastatin Calcium Active Nystatin Active Olmesartan Medoxomil Active Cetirizine HCl Activ e Omeprazole Active Albuterol Sulfate Ac tive Qvar Active Vitamin B12 Active Magnesium Active Multivitamin Active Calcium Active Social History Tobacco Use: Social History Observation Description Date Details (start date - stop date) Never Smoker NA - NA Tobacco Use/Smoking Question Answer Notes Are you a: nonsmoker Additional Findings: Tobacco Non-User Current no n-smoker Alcohol Screen Question Answer Notes Did you have a drink contain ing alcohol in the past year? Yes How often did you have a dri nk containing alcohol in the past year? Monthly or less (1 point) Points 1 Interpretation Negative Tobacco use other than smoking: Question Answer Notes Are you an other tobacco user? No Problems Problem Type SNOMED Code ICD Code Onset Dates Problem Status W/U Status Risk Notes Problem Osteoarthritis of midtarsal joint of left foot (0443014326467925 ) Osteoarthritis of midtarsal joint of left foot (M19.072) Active confirmed Problem Osteoarthritis of midtarsal joint of right foot (2197597112854635 ) 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 Vital Signs Height 5 ft 3 in in 03/22/2024 Weight 170 lbs 03/22/2024 BMI 30.11 kg/m2 03/22/2024 Blood pressure systolic 135 mm Hg 03/22/20 24 Blood pressure diastolic 80 mm Hg 024 Encounters Encounter Location Date Provider Diagnosis [facility] [address] [address] 03/22/2024 Colton Villela Pain in left foot M79.672 ; Pain in left ankle and joints of left foot M25.572 ; Bursitis of left foot M77.52 ; Osteoarthritis of midtarsal joint of left foot M19.072 ; Pain in right foot M79.671 ; Pain in right ankle and joints of right foot M25.571 ; Bursitis of right foot M77.51 and Osteoarthritis of midtarsal joint of right foot M19.071 Assessments Encounter Date Diagnosis (ICD Code) Assessment Notes Treatment Notes Treatment Clinical Notes Section Notes 03/22/2024 Pain in left foot (ICD-10 - M79.672) 03/22/2024 Pain in left ankle and joints of left foot (ICD-10 - M25.572) 03/22/2024 Bursitis of left foot (ICD-10 - M77.52) 03/22/2024 Osteoarthritis of midtarsal joint of left foot (ICD-10 - M19.072) 03/22/2024 Pain in right foot (ICD-10 - M79.671) 03/22/2024 Pain in right ankle and joints of right foot (ICD-10 - M25.571) 03/22/2024 Bursitis of right foot (ICD-10 - M77.51) 03/22/2024 Osteoarthritis of midtarsal joint of right foot (ICD-10 - M19.071) Plan Of Treatment Pending Test Test Name Order Date X ray : Foot, left 3V 03/22/2024 X ray : Foot, right 3V 03/22/2024 Next Appt Details Follow Up: prn, Reason: Progress Notes * Donald FROSTOB:1940 (83 yo F)Acc No.[id number]:03/22/2024 Progress Notes Patient:?Katherine Frost Provider:?Colton Villela DPM :1940???Age:83 Y???Sex:Female D ate:03/22/2024 Address:[address] [place], [place] [id number] Pcp:Cielo Nichols MD Subjective: * Chief Complaints: * ???Foot pain * HPI: ???Foot Pain:?Nature:?aching , stiffness , swelling , throbbing.?Location:?Top , Midfoot, B/L.?Duration:?several months.?Aggravated:?standing , walking.?Treatments:?rest/alter normal daily activity , change in shoes.? * ROS:?General/Constitutional:?Nausea?denies.?Vomiting?denies.?Hunger Thirst?denies.?Loss appetite?denies.?Chills?denies.?Fatigue?denies.?Fever?denies.?Night Sweats?denies.?Unexplained weight loss?denies.?Unexplained weight gain?denies.?HEENTM:?Dentures?denies.?Dizziness?denies.?Glasses/contacts?admits.?Retinopathy?de nies.?Blurred/double vision?denies.?TMJ?denies.?Discharge/drainage?denies.?Implants?denies.?Sore throat?denies.?Dental implants?denies.?Hard of hearing ?denies.?Difficulty chewing/swallowing/speaking?denies.?Nose bleeds?denies.?Sore mouth?denies.?Respiratory:?On Oxygen?denies.?Pneumonia/pleurisy?denies.?Bronchitis?denies.?Emphysema?denies.?C oughing?denies.?Cough blood?denies.?Shortness of breath?admits.?Wheezing?denies.?Cardiovascular:?Pacemaker?denies.?MVP?denies.?WPW?denies.?CHF?denies.?Heart attack?denies.?Septal defect?denies.?Rapid beat?denies.?Chest pain ?denies.?Atrial Fib.?denies.?Murmur/Palpitations?denies.?Gastrointestinal:?Hemorrhoids?denies.?Stomach/Abdominal pain?denies.?Dark blood stool?denies.?Irritable bowel ?denies.?Constipation?denies.?Diarrhea?denies.?Hematology:?Swelling?denies.?Clots?denies.?Varicose Veins?denies.?Bruising?denies.?Bleeding problem?denies.?Genitourinary:?Blood urine?denies.?Frequent/Painfu/urination/bladder control?denies.?Kidney stones?denies.?Infection (UTI)?denies.?Nephropathy?denies.?sex trans dis (STD)?denies.?Prostate?denies.?Musculoskeletal:?Hammertoes?denies.?Bunions?denies.?Back Pain?denies.?Muscle Cramps/ Resting?denies.?Muscle cramps / walking?denies.?Generalized aches and pains?denies.?Weakness?denies.?Integ.:?Topete?denies.?Scars?denies.?Corns/calluses?denies.?Ingrown nails?denies.?Painful nails?denies.?Open Sores?denies.?Rashes?denies.?Neurologic:?Difficulty sleeping?denies.?Brain disorder?denies.?Numbness?denies.?Balance trouble?denies.?Confusion?denies.?Fainting/blackouts?denies.?Tingling?denies.?Tr emors?denies.? * Medical History:? * Surgical History:?Gall bladd er removal 2009breast lump 1989cortazone shot in back 02/2024 * Hospitalization/Major Diagno stic Procedure:?Denies Past Hospitalization * Family History:?Mother: dece ased.?Father: , diagnosed with Unspecified heart disease.?Siblings: diagnosed with Other malignant neoplasm of unspecified site.? * Social History:?Tobacco Use:?Tobacco Use/Smoking?Are you a:?nonsmoker ?Additional Findings: Tobacco Non-User?Current non-smoker ?Tobacco use other than smoking?Are you an other tobacco user??No ???Drugs/Alcohol:?Drugs?Have you used drugs other than those for medical reasons in the past 12 months??No ?Alcohol Screen?Did you have a drink containing alcohol in the past year??Yes ?How often did you have a drink containing alcohol in the past year??Monthly or less (1 point) ?Points?1 ?Interpretation?Negative ???Miscellaneous:?no Caffeine. ?Children: yes, 4. ?Exercise: yes, travel. ?Marital status: . ?Occupation: Retired. * Medications:?TakingQvar Albu terol Sulfate Olmesartan Medoxomil Nystatin Atorvastatin Calcium Omeprazole Cetirizine HCl Calcium Multivitamin Magnesium Vitamin B12 Medication List reviewed and reconciled with the patientTaking Qvar Taking Albuterol Sulfate Taking Olmesartan Medoxomil Taking Nystatin Taking Atorvastatin Calcium Taking Omeprazole Taking Cetirizine HCl Taking Calcium Taking Multivitamin Taking Magnesium Taking Vitamin B12 Medication List reviewed and reconciled with the patient * Allergies:?N.K.D.A.yes[Aller gies Verified] Objective: * Vitals:?Ht: 5 ft 3 in, Wt: 1 70, BMI: 30.11, Shoe size: 8, BP: 135/80 mm Hg, Ht- cm: 160.02 cm, Wt-k.11 kg. * Examination: ???Orthopedic: ?MUSCLE STRENGTH:?5/5 all groups in a symmetrical fashion , B/L.?FOOT MORPHOLOGY:?Pes Cavus structure, Prominent, painful 1st Met-Cuneiform joint with inflammation, B/L.?X-Rays - IMAGING REPORT: ?Clinical Indication(s):? Evaluate for Fracture, Evaluate Biomechanical Deformity.?Views:? 3 views of Foot, AP, LAT, LO, B/L.?Findings:?mild to moderate generalized decrease in bone density, eburnation dorsal 1st MT/Cun. jt, dorsal degenerative changes of the tarsal joints.?Fracture:?Negative fractures identified.?Neurological: ?SENSORY:?Neurological exam reveals intact sensorium, pain sensation normal, vibration sensation intact, pinprick sensation is normal in the lower extremities, Pt denies, anesthesia, burning, paresthesia, tingling, B/L.?TINEL'S COMPRESSION:? Negative, Medial dorsal cutaneous nerve distribution, Intermediate dorsal cutaneous nerve distribution, Deep peroneal nerve distribution, B/L.?DEEP TENDON REFLEXES:?Achilles, 2/4, B/L.?General Examination: ?GENERAL APPEARANCE:?Reveals a pleasant, alert, well-nourished, well- developed, well hydrated individual, who demonstrates proper attention to hygiene/body habitus, and is in no acute distress, Pt serves as own?historian for office visit today.?ORIENTED:?person, place, and time.?Vascular: ?DP PULSES(B):?2/4, B/L.?PT PULSES(B):?2/4, B/L.?CAPILLARY FILL TIME:?immediate, all digits, B/L.?TROPHIC CONDITION-TEXTURE/ELASTICITY/TURGOR/HAIR GROWTH(B):?normal, B/L.?TEMPERTURE GRADIENT(C):?warm to cool, proximal to distal, B/L.?PIGMENTATION:?normal, B/L.?EDEMA(C):?absent, B/L.?Dermatologic: ?SKIN FINDINGS:?Skin exam reveals normal texture, elasticity, and turgor. There are no masses. The interspaces are clear.? Assessment: * Assessment: 1.?Pain in left ankle and moy ints of left foot - M25.572?2.?Pain in left foot - M79.672 (Primary)?3.?Bursitis of left foot - M77.52?4.?Osteoarthritis of midtarsal joint of left foot - M19.072, Acute problem, Complicated w/ Multiple Tx Options(4),Dx New problem, Prognosis Uncertain (4)?5.?Pain in right foot - M79.671?6.?Pain in right ankle and joints of right foot - M25.571?7.?Bursitis of right foot - M77.51?8.?Osteoarthritis of midtarsal joint of right foot - M19.071, Acute problem, Complicated w/ Multiple Tx Options(4),Dx New problem, Prognosis Uncertain (4)? Plan: * Treatment: 2.?Pain in right foot?Imaging: X ray : Foot, right 3V * Procedure Codes:?15710 X-RAY EXAM OF LEFT FOOT 3V, Modifiers: 26 , [id number] X-RAY EXAM OF RIGHT FOOT 3V, Modifiers: 26 , RT * Preventive Medicine:? ??Counseling:?Discussion:?-04: Office or other outpatient visit for the evaluation and management of a new patient, which required a medically appropriate history and/or examination and MODERATE level of DECISION MAKING for: 1 OR MORE CHRONIC PROBLEM(S) THATS WORSENING, 2 STABLE CHRONIC PROBLEMS, A NEWLY DIAGNOSED PROBLEM WITH UNCERTAIN PROGNOSIS, AN ACUTE COMPLICATED INJURY WITH MULTIPLE TREATMENT OPTIONS, OR AN ACUTE PROBLEM WITH ACCOMPANYING SYSTEMIC SYMPTOMS, THAT POSE(S) A MODERATE RISK OF MORBIDITY. THIS CONDITION MAY ALSO INCLUDE RX DRUG MANAGEMENT, OR A DECISON FOR MINOR SURGERY. The visit on the day of the encounter encompassed interpreting the data and educating the patient as to the nature of their condition, treatment options available according to their individual PMH, meds, allergies, and overall health/living conditions, as well as any potential risks or complications that may occur from a failure to adhere to, and participate in, the recommended course of therapy. The discussion included a complete verbal, and/or written explanation of the examination results, any x-rays taken, the proposed diagnosis, and outline of the treatment plan. A schedule for future care needs was also explained. The patient verbalized an understanding of the instructions at this time and agreed to be an active participant in their treatment. If the patient should think of any questions or concerns after the visit, I have encouraged the patient to call the office.?Arthritis:?The patient was counseled on the various etiologies for their Arthritis including genetic, history of injury or trauma, abnormal foot biomechanics leading to excessive joint wear, and use/overuse. We discussed the various treatment options from no treatment, to topical analgesics such as Biofreeze gel, Aspercream, Voltaren gel, Lidoderm patches, CBD oils, THC creams, and Custom-compounded topical cream preparations to natural oral products such as Glucosamine Sulfate/Chondroitin/MSM/Collegen to analgesic Tylenol, to anti-inflammatory medications such as Ibuprofen/Naproxen, and the use of oral steroids if needed. Cardiac, Kidney, and GI issues were discussed RE: potential complications of oral anti-inflammatories. We discussed several other treatment options consisting of accom shoes, supportive innersoles, AFO bracing/support, cortisone injection therapy, and surgical resection of the arthritic joint(s) or fusion reconstruction if necessary. We discussed the advantages and disadvantages of conservative (vs) surgical treamtents including pain relief, improved function/activities of daily life, return to exercise to failure, expense, systemic complications, infection, [id number], prolongued postop course. Patient questions re: the various treatment options available, their successes and potential failures, and terminal worker effects were discussed and the answers were verbally confirmed understood.?Orthotics:?I explained to the patient the benefits of OT use. I explained that orthoses are medically necessary to decrease the foot pain through proper mechanical control, support of their foot.?P.R.I.C.E.:?The patient was counseled on the use of P.R.I.C.E. and NSAIDS (if well tolerated) to aid in the recovery from their painful condition.?Podiatric Surgery Counseling:?Surgical procedures to treat the patients foot problem were discussed. We reviewed the risks of the procedure (described below) vs not having the procedure (persistent pain, deformity, risk for skin ulceration/infection, loss of toe). We discussed the potential procedure complications including, but not limited to: pain, swelling, bleeding, scarring, numbness, infection, delayed/non healing, floppy/unstable/shorthened toe, recurrence, failure of the procedure, overcorrection leading to plantarflexed/downward positioned toe, recurrence, need for further surgery, as well as the possibility for loss of the toe itself. We discussed the use of IV/Local anesthesia, and the usual post-op course for healing. No guarentees were given. The patient verbally indicated a full understanding of the above conversation, and any other of their questions were answered to their satisfaction.?Shoe Gear Counseling:?The patient and I reviewed the types of shoes they should be wearing. My recommendation included obtaining a well-fitted shoe with a good supportive, non-foldable nor twistable sole, plenty of toe/room for the forefoot, and proper arch support. Based on todays examination, I recommended the patient look for new shoes, by having their feet professionally measured. We discussed that generally the best time of the day for a shoe fitting is the afternoon. Different shoes types and brands to best match the patients occupation and vocation were discussed. Specific brand selection will be up to the patient, their individual foot condition/deformities, and fit. The patient and I reviewed the standard new shoe break in period by wearing them for a few hours a day while checking for redness or sores as wear time is increased. The patient verbally confirmed to understanding the information discussed.? ??Screening/Special Tests:?Fall Risk?Assessment:?Performed ?Screening:?No falls in the past year ?FALLS: Screening for Future Fall Risk?Have you had any falls with injury in the past year??No * Follow Up:?prn * Images: * Sign off status: Completed true * Provider:?Colton Villela DPM Date:?2023 Generated for Abbie roth/Lee/Roge on:?08/02/2024 11:28 AM EDT History and Physical Notes * HPI (History of Present Illness) Category Sub-Category Detail Notes Category Not es Foot Pain Nature: aching , stiffness , swellin g , throbbing Location: Top , Midfoot, B/L Duration: several months Aggravated: standing , walking Treatments: rest/alter normal da hemant activity , change in shoes Examination Category Sub-Category Detail Notes Category Not es Neurological SENSORY: Neurological exa m reveals intact sensorium, pain sensation normal, vibration sensation intact, pinprick sensation is normal in the lower extremities, Pt denies, anesthesia, burning, paresthesia, tingling, B/L TINEL'S COMPRESSION: Negative, Medial do rsal cutaneous nerve distribution, Intermediate dorsal cutaneous nerve distribution, Deep peroneal nerve distribution, B/L DEEP TENDON REFLEXES: Achilles, 2/4, B/L Dermatologic SKIN FINDINGS: Skin exam reveal s normal texture, elasticity, and turgor. There are no masses. The interspaces are clear Orthopedic FOOT MORPHOLOGY: Pes Cavus struc ture, Prominent, painful 1st Met-Cuneiform joint with inflammation, B/L MUSCLE STRENGTH: 5/5 all groups in a symmetrical fashion , B/L General Examination GENERAL APPEARANCE: Reveals a pleasant, alert, well- nourished, well-developed, well hydrated individual, who demonstrates proper attention to hygiene/body habitus, and is in no acute distress, Pt serves as own historian for office visit today ORIENTED: person, place, and t sai Vascular DP PULSES (B): 2/4, B/L PT PULSES (B): 2/4, B/L CAPILLARY FILL TIME: immediate, all digi ts, B/L TEMPERTURE GRADIENT (C): warm to cool, p roximal to distal, B/L TROPHIC CONDITION-TEXTURE/ELASTICITY/TURGOR/HAIR GROWTH (B): normal, B/L EDEMA (C): absent, B/L PIGMENTATION: normal, B/L X-Rays - IMAGING REPORT Findings: mild to moderate generalized decrease in bone density, eburnation dorsal 1st MT/Cun. jt, dorsal degenerative changes of the tarsal joints Fracture: Negative fractures i dentified Views: 3 views of Foot, AP, LAT, LO, B/L Clinical Indication(s): Evaluate for Fra cture, Evaluate Biomechanical Deformity
--- OUTSIDE RECORDS SUMMARY | 2024-08-02 11:28 | XMS_ITS | Data Portability ---
Author Organization [facility] [address] Address [address] [place] [address] Assessment No assessment recorded. Plan of Treatment Reminders Order Date Submit Date Provider Last Modified By Organization Details Last Modified Time Details Appointments None recorded. Lab None recorded. Referral None recorded. Procedures None recorded. Surgeries None recorded. Imaging None recorded. Medication Orders naproxen 500 mg tablet 2022 023 [id number], [address], [place], [id number], 11:57:26 Patient TargetsNo targets recorded. Patient Instructions Encounter Date Encounter Id Patient Instructions Last Modified By Organization Details Last Modified Time 06/16/2022 [id number] neck pain: care instructions [email or web address] Not available [...] and Address Organization Details Recorded Time Asthma 144770081 Active 2022 Vicenta [place] null, [place] - [facility] 3 10:52:15 Hyperlipidemia 66193466 Active 2022 Vicenta [place] null, [place] - [facility] 3 10:52:26 Hypertensive disorder 08018737 Active 2022 Vicenta [place] null, [place] - [facility] 10:52:31 Problem [...] saturation in Arterial blood by Pulse oximetry Pain severity - 0-10 verbal numeric rating [Score] - Reported Heart rate Respiratory rate Body temperature Systolic blood pressure Diastolic blood pressure Provider Name and Address Organization Details Last Updated DateTime 3 48617.7 g 29.2 kg/m2 162.56 cm 95 % 95 % 7 75 /min 20 /min 98 [degF] 149 mm[Hg] 80 mm[Hg] Vicenta Davis PA [employer]. 10:54:30 Social History Question Answer Notes LastModified by Organizat ion Details LastModified Time Tobacco Smoking Status Never Smoker Vicenta butler PA [employer]. 06/16/2022 10:52:40 What Is Your Level Of [...] Influenza, high-dose, trivalent, PF 8 completed Vicenta [place] null, PA - [facility] 06/16/2022 10:51:44 zoster recombinant 2 completed Vicenta Susan null, PA - [facility] 06/16/2022 10:51:44 Pneumococcal conjugate PCV 13 6 completed Vicenta Susan null, PA - [facility] 06/16/2022 10:51:44 zoster live 4 completed Vicenta Susan null, PA - [facility] 06/16/2022 10:51:44 COVID-19, mRNA, LNP-S, PF, 30 mcg/0.3 mL dose 1 completed Vicenta Susan null, PA - [facility] 06/16/2022 10:51:44 Influenza, split virus, trivalent, preservative 5 completed Vicenta Susan null, PA - [facility] 06/16/2022 10:51:44 Influenza, high-dose, quadrivalent, PF 0 completed Vicenta [place] null, PA - [facility] 06/16/2022 10:51:44 Influenza, high-dose, trivalent, PF 9 completed Vicenta Susan null, PA - [facility] 06/16/2022 10:51:44 COVID-19, mRNA, LNP-S, PF, 30 mcg/0.3 mL dose 1 completed Vicenta [place] null, PA - [facility] 06/16/2022 10:51:44 Influenza, high-dose, quadrivalent, PF 2 completed Vicenta Susan null, PA - [facility] 06/16/2022 10:51:44 zoster recombinant 2 completed Vicenta Susan null, PA - [facility] 06/16/2022 10:51:44 Td (adult), 2 Lf tetanus toxoid, preservative free, adsorbed 4 completed Vicenta [place] null, PA - [facility] 06/16/2022 10:51:44 Influenza, split virus, trivalent, preservative 1 completed Vicenta Susan null, PA - [...] mcg/0.3 mL dose, memo-sucrose 2 completed Vicenta [place] null, PA - [facility] 06/16/2022 10:51:44 Influenza, high-dose, trivalent, PF 6 completed Vicenta [place] null, PA - [facility] 06/16/2022 10:51:44 COVID-19, mRNA, LNP-S, bivalent, PF, 30 mcg/0.3 mL dose 2 completed Vicenta [place] null, PA - [facility] 06/16/2022 10:51:44 Influenza, split virus, trivalent, preservative 3 completed Vicenta Susan null, PA - [facility] 06/16/2022 10:51:44 Influenza, adjuvanted, quadrivalent, PF 1 completed Vicenta Susan null, PA - [facility] 06/16/2022 10:51:44 Influenza, high-dose, trivalent, PF 7 completed Vicenta [place] null, PA - [facility] 06/16/2022 10:51:44 Influenza, split virus, trivalent, preservative 4 completed Vicenta Susan null, PA - [facility] 06/16/2022 10:51:45 Past Encounters Encounter ID Performer Location Encounter Start Date Encounter Closed Date Diagnosis/Indication Diagnosis SNOMED-CT Code Diagnosis ICD10 Code Diagnosis Note [id number] [address] [facility] [place] [address] 04/10/2020 14:12:05 04/10/2020 16:32:19 [id number] [address] [facility] [place] [address] 09/27/2015 15:09:30 09/27/2015 15:37:04 [id number] [address] [facility] [place] [address] 05/19/2016 11:51:38 05/19/2016 13:35:44 [id number] [address] [facility] [place] [address] 07/21/2019 12:37:35 07/21/2019 13:31:36 [id number] [address] [facility] [place] [address] 09/19/2015 16:39:37 09/19/2015 18:00:01 [id number] [address] [facility] [place] [address] 04/22/2017 10:25:15 04/22/2017 13:33:12 [id number] [address] [facility] [place] [address] 01/31/2017 12:39:47 01/31/2017 13:01:35 [id number] [address] [facility] [place] [address] 05/11/2021 08:48:36 05/11/2021 10:59:34 [id number] [address] [facility] [place] [address] 02/26/2018 08:24:54 02/26/2018 08:55:58 [id number] [address] [facility] [place] [address] 11/29/2019 10:32:17 11/29/2019 11:15:12 [id number] [address] [facility] [place] [address] 06/07/2019 10:44:03 06/07/2019 12:16:46 [id number] [place] [address] [facility] [place] [address] 06/16/2022 10:14:15 06/16/2022 12:01:50 Muscle spasm of cervical muscle of neck 4152368478 04 M62.838 Health Concerns Section Related Observation LastModified by Organization Detai ls LastModified Time None Recorded Concern Status LastModified by Organization Details LastModified Time None Recorded Advance Directives Directive None Recorded Payers Encounter Date Sequence Insurance Name Policy Number Policy Hughes Covered Member ID Hughes Member ID Guarantor Name 07/21/2019 1 [place] Katherine A Stosz [id number] Katherine Stosz 07/21/2019 2 [place] [id number] Katherine A Stosz [id number] Katherine Stosz 11/29/2019 1 [place] Katherine A Stosz [id number] Katherine Stosz 11/29/2019 2 [place] 104 Katherine A Stosz [id number] Katehrine Stosz 04/10/2020 1 [place] Katherine A Stosz [id number] Katherine Stosz 04/10/2020 2 [place] 104 Katherine A Stosz [id number] Katherine Stosz 05/11/2021 1 [place] Katherine A Stosz [id number] Katherine Stosz 05/11/2021 2 [place] 104 Katherine A Stosz [id number] Katherine [facility] 06/16/2022 1 [place] Katherine Frost [id number] Katherine [facility] 06/16/2022 2 [place] 104 Katherine Arceo [facility] [id number] Katherine Frost Notes Date Note Type Note Provider Name and Address Organization Details Recorded Time 06/16/2022 text/html Neck UCReported bypatient.Notes:le ft sided neck spam x 2 day pain radiating from posterior left neck to left shoulder girdle . denies any trauma , denies any HX of left shoulder or cervical problems. denies any fever , sob, or respiratory distress. Constantine West NP [address] [place], [address], [place] - [facility] 06/16/2022 11:57:39 OBGyn Episode No OBEpisode recorded.
--- OUTSIDE RECORDS SUMMARY | 2024-08-02 11:28 | XMS_ITS | Patient Health Record ---
Author Organization [facility] Lizbeth madina [place] Address [address] [place] [address] Care Team Providers Care Orchestra Teacher Name Role Phone Cielo Nichols MD Primary Care Provider Colton Santiago Unavailable [phone] Allergies No Known Allergies Reason For Referral No Information Medications Medication SIG (Take, Route, Fr equency, Duration) Notes Start Date End Date Status Atorvastatin Calcium Active Nystatin Active Olmesartan Medoxomil Active Albuterol Sulfate Ac tive Qvar Active Vitamin B12 Active Magnesium Active Multivitamin Active Calcium Active Cetirizine HCl Activ e Omeprazole Active Social History Tobacco Use: Social History [...] Osteoarthritis of midtarsal joint of left foot (4750120175865961 ) Osteoarthritis of midtarsal joint of left foot (M19.072) Active confirmed Problem Osteoarthritis of midtarsal joint of right foot (1010850385978852 ) 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 Vital Signs Blood pressure diastolic 80 mm Hg 03/22/2024 Height 5 ft 3 in in 03/22/2024 Blood pressure systolic 135 mm Hg 03/22/2024 Weight 170 lbs 03/22/2024 BMI 30.11 kg/m2 03/22/2024 Encounters Encounter Location Date Provider Diagnosis [address] [address] 03/22/2024 Colton Villela Pain in left foot [...] of midtarsal joint of right foot M19.[address] [address] 01/15/2024 Colton V[place]la [address] [address] 02/01/2024 Colton V[place]la Assessments Encounter Date Diagnosis (ICD Code) Assessment Notes Treatment Notes Treatment Clinical Notes Section Notes 03/22/2024 Pain in left ankle and joints of left foot (ICD-10 - M25.572) 03/22/2024 Pain in left foot (ICD-10 - M79.672) 03/22/2024 Bursitis of left foot (ICD-10 - [...] X ray : Foot, right 3V 03/22/2024 Insurance Providers Payer Name Payer Address Payer Phone Subscriber Number Group Number Insured Name Patient Relationship to Insured Coverage Start Date Coverage End Date Medicare National [employer] [address] [place] [address] [phone] [id number] Katherine Frost Self - patient is the insured [facility] [address] [place] [address] [phone] [id number] Katherine Frost Self - patient is the insured Medical (General) History Medical History History ICD Code Arthritis asthma Broken bones CAD (Cholesterol) covid-19 Gall bladder problems Hiatal hernia High Blood Pressure Reflux ( GERD) Sciatica Measles Mumps Surgical History Surgery Date(Month/Year) Gall bladder removal 2008 breast lump 1988 cortazone shot in back 02/2024
--- OUTSIDE RECORDS SUMMARY | 2024-08-02 11:28 | XMS_ITS ---
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 Generated for Printi ng/Faxing/eTransmitting on:?08/02/2024 11:27 AM EDT
--- OUTSIDE RECORDS SUMMARY | 2024-08-02 11:32 | XMS_ITS | Encounter Summary ---
Author Organization [facility] Address [address] [place] [address] Care Team Providers Care Demolition Crane Operator Name Role Phone Chanel Parada DO Primary Care Pro vider Unavailable Danie Germain DO Primary Care Provider Aicha Leonora Louie MD Primary Care Provider [phone] [facility], Pcp Primary Care Provider Unavailabl e Encounter Details Date Type Department Care Team Description 08/11/2019 Orders Only Radiology - [address] [address] Chanel Parada DO Social History Tobacco Use Types Packs/Day Years Used Date Smoking Tobacco: Never Smokeless Tobacco: Never Alcohol Use Standard Drinks/Week Comments Yes 0 (1 standard drink = 0.6 oz pur e alcohol) ocassionally Sex Assigned at Date Recorded Not on file Job Start Date Occupation Industry Not on file Not on file Not on file documented as of this encounter Plan of Treatment Not on file documented as of this encounter Visit Diagnoses Not on filedocumented in this encounter Care Teams Demolition Crane Operator Relationship Specialty Start Date End Date Chanel Parada DO PCP - General Internal Medicine 04/04/15 01/07/21 Danie Germain DO PCP - General Internal Medicine 01/08/21 Leonora Blood MD [address] [place] [address] PCP - General Internal Medicine 04/04/21 01/06/22 [facility] Pcp [address] [place] [address] PCP - General Internal Medicine 01/07/22 documented as of this encounter
--- OUTSIDE RECORDS SUMMARY | 2024-08-02 11:32 | XMS_ITS | Encounter Summary ---
Author Organization [facility] Address [address] [place] [address] Care Team Providers Care Bereavement Program Coordinator Name Role Phone Chanel Parada DO Primary Care Pro vider Unavailable Danie Germain DO Primary Care Provider Aicha Leonora Louie MD Primary Care Provider [phone] [facility], Pcp Primary Care Provider Unavailabl e Encounter Details Date Type Department Care Team Description 03/23/2018 Business Doc Medical Records [address] [place], [place] [id number] Abstract, Provider Social History Tobacco Use Types Packs/Day Years [...] on filedocumented in this encounter Care Teams Bereavement Program Coordinator Relationship Specialty Start Date End Date Chanel Parada DO PCP - General Internal Medicine 04/04/15 01/07/21 Danie Germain DO PCP - General Internal Medicine 01/08/21 Leonora Blood MD [address] [place], [place] [id number] PCP - General Internal Medicine 04/04/21 01/06/22 [facility], Pcp [address] [place], [place] [id number] PCP - General Internal Medicine 01/07/22 documented as of this encounter
--- OUTSIDE RECORDS SUMMARY | 2024-08-02 11:32 | XMS_ITS | Encounter Summary ---
Author Organization [facility] Address [address] [place] [address] Care Team Providers Care Financial Services Specialist Name Role Phone Chanel Parada DO Primary Care Pro vider Unavailable Danie Germain DO Primary Care Provider Aicha Leonora Louie MD Primary Care Provider [phone] [facility] Primary Care Provider Unavailabl e Reason for Visit * Reason Comments E-prescribe Rx Request Encounter Details Date Type Department Care Team Description 09/29/2018 Refill Adult Medicine [address] [address] Chanel Parada DO E-prescribe Rx Request Social History Tobacco Use Types Packs/Day Years Used Date Smoking Tobacco: Never Smokeless Tobacco: Never Alcohol Use Standard Drinks/Week Comments Yes 0 (1 standard drink = 0.6 oz pur e alcohol) ocassionally Sex Assigned at Date Recorded Not on file Job Start Date Occupation Industry Not on file Not on file Not on file documented as of this encounter Miscellaneous Notes * Telephone Encounter - Rachel Matias M.A. - 09/30/2018 9:33 AM EDT Lab Results Component Value Date CHOL 166 03/19/2018 LDL 72 03/19/2018 HDL 61 03/19/2018 TRIG 165 03/19/2018 * Telephone Encounter - Rafael Pearce - 09/30/2018 7:17 AM EDT Patient would like script to be: E-PRESCRIBED/FAXED TO PHARMACY WHEN WAS THE PATIENT'S LAST APPOINTMENT IN ADULT MEDICINE? 09/24/18 WHEN WAS THE LAST TIME THE PATIENT SAW THEIR PCP? Same as above Does patient have an upcoming appointment? Yes 10/11/18 (THE MEDICATION REQUESTED IS ON THE MED LIST ABOVE) All of the medications requested were on the CURRENT MEDS list Did you check the Pharmacy information above?: YES Patient wants: 90 -day supply Is this a mail order prescription request ? NO If the refill is from a FAXED refill request what is the RX # listed on the fax? N/A Patients current insurance carrier is: [place] / [place] / Product Type: MED[place]ARE [id number] documented in this encounter Plan of Treatment Not on file documented as of this encounter Visit Diagnoses Not on filedocumented in this encounter Care Teams Financial Services Specialist Relationship Specialty Start Date End Date Chanel Parada DO PCP - General Internal Medicine 04/04/15 01/07/21 Danie Germain DO PCP - General Internal Medicine 01/08/21 Leonora Blood MD [address] [place] [address] PCP - General Internal Medicine 04/04/21 01/06/[address] [address] PCP - General Internal Medicine 01/07/22 documented as of this encounter
--- OUTSIDE RECORDS SUMMARY | 2024-08-02 11:32 | XMS_ITS | Encounter Summary ---
Author Organization [facility] Address [address] [place] [address] Care Team Providers Care Regional Vice President Life Sales Name Role Phone Name, Endy HANDLEY Primary Care Provider Razia e Chanel Parada DO Primary Care Pro vider Unavailable Danie Germain DO Primary Care Provider Aicha Leonora Louie MD Primary Care Provider [phone] [facility], Pcp Primary Care Provider Unavailchaka e Encounter Details Date Type Department Care Team Description 01/07/2013 Business Doc Medical Records [address] [place] [address] Abstract, Provider Social History Tobacco Use Types Packs/Day Years Used Date Smoking Tobacco: Never Alcohol Use Standard Drinks/Week Comments [...] on filedocumented in this encounter Care Teams Regional Vice President Life Sales Relationship Specialty Start Date End Date Name, MD Endy PCP - General 12/21/09 04/03/15 Chanel Parada DO PCP - General Internal Medicine 04/04/15 01/07/21 Danie Germain DO PCP - General Internal Medicine 01/08/21 Leonora Blood MD [address] [place] [address] PCP - General Internal Medicine 04/04/21 01/06/22 [facility], Pcp [address] [place] [address] PCP - General Internal Medicine 01/07/22 documented as of this encounter
--- OUTSIDE RECORDS SUMMARY | 2024-08-02 11:32 | XMS_ITS | Encounter Summary ---
Author Organization [facility] Address [address] [place] [address] Care Team Providers Care Aircraft Lay Out Worker Name Role Phone Name, Endy HANDLEY Primary Care Provider Razia e Chanel Parada DO Primary Care Pro vider Unavailable Danie Germain DO Primary Care Provider Aicha Leonora Louie MD Primary Care Provider [phone] [facility], Pcp Primary Care Provider Razia e Encounter Details Date Type Department Care Team Description 12/07/2014 Business Doc Medical Records [address] [place] [address] Abstract, Provider Social History Tobacco Use Types [...] on filedocumented in this encounter Care Teams Aircraft Lay Out Worker Relationship Specialty Start Date End Date Name, MD Endy PCP - General 12/21/09 04/03/15 Chanel Parada DO PCP - General Internal Medicine 04/04/15 01/07/21 Danie Germain DO PCP - General Internal Medicine 01/08/21 Leonora Blood MD [address] [place] [address] PCP - General Internal Medicine 04/04/21 01/06/22 [facility], Pcp [address] [place] [address] PCP - General Internal Medicine 01/07/22 documented as of this encounter
--- OUTSIDE RECORDS SUMMARY | 2024-08-02 11:32 | XMS_ITS | Encounter Summary ---
Author Organization [facility] Address [address] [place] [address] Care Team Providers Care Nail Specialist Name Role Phone Chanel Parada DO Primary Care Pro vider Unavailable Danie Germain DO Primary Care Provider Aicha Leonora Louie MD Primary Care Provider [phone] [facility], Pcp Primary Care Provider Unavailabl e Encounter Details Date Type Department Care Team Description 12/27/2018 Business Doc Medical Records [address] [place], [place] [id number] Abstract, Provider Social History Tobacco Use Types [...] on filedocumented in this encounter Care Teams Nail Specialist Relationship Specialty Start Date End Date Chanel Parada DO PCP - General Internal Medicine 04/04/15 01/07/21 Danie Germain DO PCP - General Internal Medicine 01/08/21 Leonora Blood MD [address] [place], [place] [id number] PCP - General Internal Medicine 04/04/21 01/06/22 [facility], Pcp [address] [place], [place] [id number] PCP - General Internal Medicine 01/07/22 documented as of this encounter
--- OUTSIDE RECORDS SUMMARY | 2024-08-02 11:32 | XMS_ITS | Encounter Summary ---
Author Organization [facility] Address [address] [place] [address] Care Team Providers Care Gas Desulfurizer Name Role Phone Chanel Parada DO Primary Care Pro vider Unavailable Danie Germain DO Primary Care Provider Aicha Leonora Louie MD Primary Care Provider [phone] [facility], Pcp Primary Care Provider Unavailabl e Encounter Details Date Type Department Care Team Description 01/09/2020 Business Doc Medical Records [address] [place], [place] [id number] Abstract, Provider Social History Tobacco Use Types [...] on filedocumented in this encounter Care Teams Gas Desulfurizer Relationship Specialty Start Date End Date Chanel Parada DO PCP - General Internal Medicine 04/04/15 01/07/21 Danie Germain DO PCP - General Internal Medicine 01/08/21 Leonora Blood MD [address] [place], [place] [id number] PCP - General Internal Medicine 04/04/21 01/06/22 [facility], Pcp [address] [place], [place] [phone] PCP - General Internal Medicine 01/07/22 documented as of this encounter
--- OUTSIDE RECORDS SUMMARY | 2024-08-02 11:32 | XMS_ITS | Encounter Summary ---
Author Organization [facility] Address [address] [place] [address] Care Team Providers Care Mathematical Physicist Name Role Phone Name, Endy HANDLEY Primary Care Provider Chanel Nicholson DO Primary Care Pro vider Unavailable Danie Germain DO Primary Care Provider Aicha Leonora Louie MD Primary Care Provider [phone] [facility], Pcp Primary Care Provider Razia landry Encounter Details Date Type Department Care Team Description 12/26/2009 Release of Information Medical Records [address] [place] [address] Abstract, Provider Social History Tobacco Use Types [...] on filedocumented in this encounter Care Teams Mathematical Physicist Relationship Specialty Start Date End Date Name, MD Endy PCP - General 12/21/09 04/03/15 Chanel Parada DO PCP - General Internal Medicine 04/04/15 01/07/21 Danie Germain DO PCP - General Internal Medicine 01/08/21 Leonora Blood MD [address] [place] [address] PCP - General Internal Medicine 04/04/21 01/06/22 [facility], Pcp [address] [place] [address] PCP - General Internal Medicine 01/07/22 documented as of this encounter
--- OUTSIDE RECORDS SUMMARY | 2024-08-02 11:32 | XMS_ITS | Encounter Summary ---
Author Organization [facility] Address [address] [place] [address] Care Team Providers Care Field Sales Engineer Name Role Phone Name, Endy HANDLEY Primary Care Provider Razia e Chanel Parada DO Primary Care Pro vider Unavailable Danie Germain DO Primary Care Provider Aicha Leonora Louie MD Primary Care Provider [phone] [facility], Pcp Primary Care Provider Razia e Encounter Details Date Type Department Care Team Description 12/01/2012 Transfer Records Medical Records [address] [place] [address] Abstract, Provider Social History Tobacco Use Types [...] on filedocumented in this encounter Care Teams Field Sales Engineer Relationship Specialty Start Date End Date Name, MD Endy PCP - General 12/21/09 04/03/15 Chanel Parada DO PCP - General Internal Medicine 04/04/15 01/07/21 Danie Germain DO PCP - General Internal Medicine 01/08/21 Leonora Blood MD [address] [place] [address] PCP - General Internal Medicine 04/04/21 01/06/22 [facility], Pcp [address] [place] [address] PCP - General Internal Medicine 01/07/22 documented as of this encounter
--- OUTSIDE RECORDS SUMMARY | 2024-08-02 11:32 | XMS_ITS | Encounter Summary ---
Author Organization [facility] Address [address] [place] [address] Care Team Providers Care Agricultural Engineer Name Role Phone Chanel Parada DO Primary Care Pro vider Unavailable Danie Germain DO Primary Care Provider Aicha Leonora Louie MD Primary Care Provider [phone] [facility], [facility] Primary Care Provider Unavailabl e Reason for Visit * Reason Onset Date Comments REFERRAL 12/27/2018 Encounter Details Date Type Department Care Team Description 12/27/[address] [facility] [address] [place] [address] Katie Early [facility] [address] [place] [address] REFERRAL Social History Tobacco Use Types Packs/Day Years [...] encounter Miscellaneous Notes * Telephone Encounter - Lia Aguilar M.A. - 12/27/2018 11:20 AM EDT FYI * Telephone Encounter - Mali Mancilla - 12/27/2018 9:23 AM EDT FYI ONLY. Pt canx 01/16/19 sleep study and will call back in the future to reschedule the visit. Notes states pt is going away and does not know when she will be returning. I am removing this pt's order from the sleep study schedule. Order expires 10/20/19,Medicare/[facility] Cross no auth required/pp. documented in this encounter Plan of Treatment Not on file documented as of this encounter Visit Diagnoses Not on filedocumented in this encounter Care Teams Agricultural Engineer Relationship Specialty Start Date End Date Chanel Parada, PCP - General Internal Medicine 04/04/15 01/07/21 Danie Germain DO PCP - General Internal Medicine 01/08/21 Leonora Blood MD [address] [place] [address] PCP - General Internal Medicine 04/04/21 01/06/[address] [address] PCP - General Internal Medicine 01/07/22 documented as of this encounter
--- OUTSIDE RECORDS SUMMARY | 2024-08-02 11:32 | XMS_ITS | Encounter Summary ---
Author Organization [facility] Address [address] [place] [address] Care Team Providers Care Field Technical Assistant Name Role Phone Chanel Parada DO Primary Care Pro vider Unavailable Danie Germain DO Primary Care Provider Aicha Leonora Louie MD Primary Care Provider [phone] [facility], Pcp Primary Care Provider Unavailabl e Encounter Details Date Type Department Care Team Description 10/22/2018 Telephone Adult Medicine [address] [address] Chanel Parada DO Social History Tobacco Use [...] filedocumented in this encounter Care Teams Field Technical Assistant Relationship Specialty Start Date End Date Chanel Parada DO PCP - General Internal Medicine 04/04/15 01/07/21 Danie Germain DO PCP - General Internal Medicine 01/08/21 Leonora Blood MD [address] [place] [address] PCP - General Internal Medicine 04/04/21 01/06/22 [facility], Pcp [address] [place] [address] PCP - General Internal Medicine 01/07/22 documented as of this encounter
--- OUTSIDE RECORDS SUMMARY | 2024-08-02 11:33 | XMS_ITS | Encounter Summary ---
Author Organization [facility] Address [address] [place] [address] Care Team Providers Care Warp Knit Operator Name Role Phone Chanel Parada DO Primary Care Pro vider Unavailable Danie Germain DO Primary Care Provider Aicha Leonora Louie MD Primary Care Provider [phone] [facility], Pcp Primary Care Provider Unavailabl e Encounter Details Date Type Department Care Team Description 09/19/2016 Business Doc Medical Records [address] [place] [address] Abstract, Provider Social History Tobacco Use Types [...] on filedocumented in this encounter Care Teams Warp Knit Operator Relationship Specialty Start Date End Date Chanel Parada DO PCP - General Internal Medicine 04/04/15 01/07/21 Danie Germain DO PCP - General Internal Medicine 01/08/21 Leonoar Blood MD [address] [place] [address] PCP - General Internal Medicine 04/04/21 01/06/22 [facility], Pcp [address] [place] [address] PCP - General Internal Medicine 01/07/22 documented as of this encounter
--- OUTSIDE RECORDS SUMMARY | 2024-08-02 11:33 | XMS_ITS | Encounter Summary ---
Author Organization [facility] Address [address] [place] [address] Care Team Providers Care Superintendent Storage Area Name Role Phone Chanel Parada DO Primary Care Pro vider Unavailable Danie Germain DO Primary Care Provider Aicha Leonora Louie MD Primary Care Provider [phone] [facility], [facility] Primary Care Provider Unavailabl e Reason for Visit * Reason Onset Date Comments Faxed Order 10/08/2015 Encounter Details Date Type Department Care Team Description 10/08/2015 Telephone Adult Medicine [address] [address] Chanel Parada DO Faxed Order Social History Tobacco Use Types Packs/Day Years Used Date Smoking Tobacco: Never Alcohol Use Standard Drinks/Week Comments Yes 0 (1 standard drink = 0.6 oz pur e alcohol) ocassionally Sex Assigned at Date Recorded Not on file Job Start Date Occupation Industry Not on file Not on file Not on file documented as of this encounter Miscellaneous Notes * Telephone Encounter - Jonelle Lantigua M.A. - 10/08/2015 3:07 PM EDT Soni MOSLEY is requesting Dr. Coles's signature documented in this encounter Plan of Treatment Not on file documented as of this encounter Visit Diagnoses Not on filedocumented in this encounter Care Teams Superintendent Storage Area Relationship Specialty Start Date End Date Chanel Pardaa, PCP - General Internal Medicine 04/04/15 01/07/21 Danie Germain DO PCP - General Internal Medicine 01/08/21 Leonora Blood MD [address] [place] [address] PCP - General Internal Medicine 04/04/21 01/06/22 [facility], [place] [address] PCP - General Internal Medicine 01/07/22 documented as of this encounter
--- OUTSIDE RECORDS SUMMARY | 2024-08-02 11:33 | XMS_ITS | Encounter Summary ---
Author Organization [facility] Address [address] [place] [address] Care Team Providers Care Radiator Mechanic Name Role Phone Chanel Parada DO Primary Care Pro vider Unavailable Danie Germain DO Primary Care Provider Aicha Leonora Louie MD Primary Care Provider [phone] [facility], [facility] Primary Care Provider Unavailabl e Reason for Visit * Reason Onset Date Comments Faxed Order 10/05/2015 Encounter Details Date Type Department Care Team Description 10/05/2015 Telephone Adult Medicine [address] [address] Chanel Parada DO Faxed Order Social History [...] encounter Miscellaneous Notes * Telephone Encounter - Liseth Ricci - 10/05/2015 4:05 PM EDT Sign order form iraj rodriguez. Fax sent to [facility] documented in this encounter Plan of Treatment Not on file documented as of this encounter Visit Diagnoses Not on filedocumented in this encounter Care Teams Radiator Mechanic Relationship Specialty Start Date End Date Chanel Parada DO PCP - General Internal Medicine 04/04/15 01/07/21 Danie Germain DO PCP - General Internal Medicine 01/08/21 Leonora Blood MD [address] [place] [address] PCP - General Internal Medicine 04/04/21 01/06/22 [facility], [address] [address] PCP - General Internal Medicine 01/07/22 documented as of this encounter
--- OUTSIDE RECORDS SUMMARY | 2024-08-02 11:33 | XMS_ITS | Clinical Summary ---
Author Organization [facility] Address [address] [place] [address] Care Team Providers Care Bunch Breaker Name Role Phone Community, Pcp Primary Care Provider Unavailabl e Allergies Active Allergy Reactions Severity Noted Date Comments Seasonal Allergies 02/05/2016 Medications Medication Sig Dispensed Refills Start Date End Date Status Multiple Vitamins-Minerals (CENTRUM SILVER OR) Take by mouth. 0 Active Calcium Carbonate-Vitamin D (CALCIUM 600+D OR) Take 1 Tab by mouth daily. 0 Active Cyanocobalamin (VITAMIN B12 OR) Take 1 Tab by mouth daily. 0 Active albuterol (PROVENTIL) (2.5 MG/3ML) 0.083% nebulizer solution Take 1 Vial by nebulization every 4 hours as needed for Wheezing. 50 Vial 0 09/24/2018 Active ALBUTEROL SULFATE 108 (90 Base) MCG/ACT Aero Soln Take 2 Puffs by mouth every 4 hours as needed for Cough, Wheezing or Shortness of Breath. 8.5 g 0 09/11/2020 Active omeprazole (PRILOSEC) 40 MG capsule Take 1 capsule by mouth daily. TAKE 1 CAPSULE BY MOUTH DAILY 90 capsule 1 07/15/2021 Active beclomethasone (Qvar) 80 MCG/ACT inhaler Inhale 1 Puff into the lungs every 12 hours for 90 days. This medication has inhaler steroid: Rinse mouth with water and expectorate after each dose to prevent oral/esophageal candidiasis or fungal infection. 60 Act 2 07/15/2021 Active nystatin (MYCOSTATIN) cream Apply to affected area 2 times daily as needed 30 g 1 07/15/2021 Active atorvastatin (LIPITOR) 10 MG tablet Take 1 tablet by mouth daily. 90 tablet 1 07/15/2021 Active amlodipine (NORVASC) 2.5 MG tablet Take 1 tablet by mouth daily. 90 tablet 1 07/15/2021 Active cetirizine (ZYRTEC) 10 MG tablet Take 1 tablet by mouth daily. One tab daily 90 tablet 1 07/15/2021 Active Active Problems Problem Noted Date Cervical spondylosis 05/29/2020 Calcific tendonitis of right shoulder Allergic rhinitis due to pollen 10/20/19 19 Obesity (BMI 30-39.9) 10/19/2018 PND (paroxysmal nocturnal dyspnea) 10/19 History of ankle fracture 09/13/2017 Mild persistent asthma without complicat ion 02/17/2017 Mixed hyperlipidemia 02/05/2016 Ankle fracture 10/23/2015 Cystocele, midline 01/15/2015 HTN (hypertension) 09/29/2013 Resolved Problems Problem Noted Date Resolved Date Post-nasal drainage 10/19/2018 07/15/2021 Snoring 10/19/2018 07/15/2021 Allergic rhinitis 09/27/2014 12/30/2019 Immunizations Name Administration Dates Next Due COVID-19 (Pfizer) 03/05/2021,08/02/2020,07/12/19 21 Influenza (> 6 Months) 04/04/2015,2013,03/30/2013,02/25,03/13/2011 Influenza Flu (PT Reported) 02/22/2020 Influenza vaccine high dose age 65 and over 03/21/2021,03/25/2019,03/22/2018 Pneumoccoccal(Adult) Polysac charide PPSV23 12/25/2009 Pneumococcal Conjugate PCV-13 04/03/2016 Shingrix (Recombinant zoster vaccine) 10/29/2021 ,08/14/2021 TD (STATE SUPPLIED FOR ADULT S AND CHILDREN) 09/29/2013 Zostavax 04/12/2014 Family History Medical History Relation Name Comments No Known Problems Daughter [place] Father No Known Problems Maternal Grandfather No Known Problems Maternal Grandmother old age Mother at 94 No Known Problems Other No Known Problems Paternal Grandfather No Known Problems Paternal Grandmother No Known Problems Son 1 No Known Problems Son 2 Cancer of the Breast Negative Hx Cancer of the Colon Negative Hx Relation Name Status Comments Daughter Alive Father Maternal Grandfather Maternal Grandmother Mother Other Paternal Grandfather Paternal Grandmother Son 1 Alive Son 2 Alive Social History Tobacco Use Types Packs/Day Years Used Date Smoking Tobacco: Never Smokeless Tobacco: Never Alcohol Use Standard Drinks/Week Comments Yes 0 (1 standard drink = 0.6 oz pur e alcohol) ocassionally Sex Assigned at Date Recorded Not on file Job Start Date Occupation Industry Not on file Not on file Not on file Last Filed Vital Signs Vital Sign Reading Time Taken Comments Blood Pressure 138/72 07/15/2021 2:05 PM EST Pulse 84 07/15/2021 1:48 PM EST Temperature 36.4 ??C (97.6 ??F) 07/15/2021 1:48 PM ES T Respiratory Rate 18 07/15/2021 1:48 PM EST Oxygen Saturation 95% 10/19/2018 10:49 AM EDT Inhaled Oxygen Concentration - - Weight 78.9 kg (174 lb) 07/15/2021 1:48 PM EST Height 162.6 cm (5' 4 ) 07/15/2021 1:48 PM EST Body Mass Index 29.87 07/15/2021 1:48 PM EST Plan of Treatment Health Maintenance Due Date Last Done Comments DTAP/TDAP/TD (1 - Tdap) 09/30/2013 09/29/2013 DEPRESSION SCREEN 12/23/2017 12/23/2016, , 10/23/2015, Additional history exists COLON CANCER SCREEN WITH STO OL CARD 09/07/2018 09/07/2017 (Refused) BONE DENSITY SCREENING 09/18/2018 09/18/2016, 2012 MAMMOGRAM 01/09/2022 01/09/2021, 12/23, 10/21/2019, Additional history exists FALL RISK ASSESSMENT 07/15/2022 07/15/2021, 12/30/2019, 12/23/2016, Additional history exists Covid-19 Vaccine (4 - 2022-2 4 season) 2024 03/05/2021, 08/02/2020, 07/12/2020 INFLUENZA (#1) 2024 03/21/2021, 01/25, 03/25/2019, Additional history exists BMI CHECK/ADVISE 05/25/2024 09/11/2020, 11/2019, 03/25/2019, Additional history exists CHOLESTEROL SCREENING 07/15/2026 07/15/2021 , 09/11/2020, 12/31/2019, Additional history exists PNEUMOCOCCAL VACCINE Completed 04/03/2016, 12/26/19 10 SHINGLES VACCINE Completed 10/29/2021, , 04/12/2014 Care Teams Bunch Breaker Relationship Specialty Start Date End Date Community, Pcp PCP - General Internal Medicine 01/07/22
--- OUTSIDE RECORDS SUMMARY | 2024-08-02 11:33 | XMS_ITS | Encounter Summary ---
Author Organization [facility] Address [address] [place] [address] Care Team Providers Care Master Planner Name Role Phone Chanel Parada DO Primary Care Pro vider Unavailable Danie Germain DO Primary Care Provider Aicha Leonora Louie MD Primary Care Provider [phone] [facility], [facility], Pcp Primary Care Provider Unavailabl e Encounter Details Date Type Department Care Team Description 11/19/2015 Wellness Visit Medical Records [address] [place] [address] Chanel Parada DO Social History Tobacco Use [...] on filedocumented in this encounter Care Teams Master Planner Relationship Specialty Start Date End Date Chanel Parada DO PCP - General Internal Medicine 04/04/15 01/07/21 Danie Germain DO PCP - General Internal Medicine 01/08/21 Leonora Blood MD [address] [place] [address] PCP - General Internal Medicine 04/04/21 01/06/22 [facility], [facility], Pcp [address] [place], [place] [id number] PCP - General Internal Medicine 01/07/22 documented as of this encounter
--- OUTSIDE RECORDS SUMMARY | 2024-08-02 11:33 | XMS_ITS | Encounter Summary ---
Author Organization [facility] Address [address] [place] [address] Care Team Providers Care Fire Loss Prevention Engineer Name Role Phone Chanel Parada DO Primary Care Pro vider Unavailable Danie Germain DO Primary Care Provider Aicha Leonora Louie MD Primary Care Provider [phone] [facility], Pcp Primary Care Provider Unavailabl e Encounter Details Date Type Department Care Team Description 04/03/2016 Business Doc Medical Records [address] [place] [address] Abstract, Provider Social History Tobacco Use Types [...] on filedocumented in this encounter Care Teams Fire Loss Prevention Engineer Relationship Specialty Start Date End Date Chanel Parada DO PCP - General Internal Medicine 04/04/15 01/07/21 Danie Germain DO PCP - General Internal Medicine 01/08/21 Leonora Blood MD [address] [place] [address] PCP - General Internal Medicine 04/04/21 01/06/22 [facility], Pcp [address] [place] [address] PCP - General Internal Medicine 01/07/22 documented as of this encounter
== END 2024-08-02 11:26 | disposition home or self-care (01) ==
PROVIDERS: PCP Internal Medicine; Visit Provider Internal Medicine
DX: G57.01 Lesion of sciatic nerve, right lower limb (principal); J45.40 Moderate persistent asthma, uncomplicated; I10 Essential (primary) hypertension

== ENCOUNTER → 2024-08-02 09:58 | Outpatient (BNVA) | payer MEDICARE, BC, SELFPAY | PROVIDERS: PCP Internal Medicine; Visit Provider Internal Medicine | DX: G57.01 Lesion of sciatic nerve, right lower limb (principal); J45.40 Moderate persistent asthma, uncomplicated; I10 Essential (primary) hypertension | CPT/HCPCS: 96127; 99212 ==

== ENCOUNTER 2024-09-21 07:26 | Outpatient (REF) | payer MEDICARE, BC, SELFPAY ==
--- OUTSIDE RECORDS SUMMARY | 2024-09-21 07:29 | XMS_ITS | Data Portability ---
Author Organization [place] [facility], [facility] Address [address] [place] [address] Care Team Providers Care Heel Seat Pounder Name Role Phone KERRIEDEEPAJAVIER LaurenHENRIQUE Primary Care Provider [phone] Assessment No assessment recorded. Plan of Treatment [...] 2023 024 [facility], [address] [place] [address], [address], 4 14:36:30 Procedures None recorded. Surgeries None recorded. Imaging XR, hip, unilatera l, 2 or 3 view 2023 024 rmessenger Not available 4 14:36:30 Medication Orders None recorded. Patient TargetsNo targets recorded. Patient InstructionsNo instructions recorded. Reason for Referral Physical Therapist Referral for Pain of right hip joint (THIS PRESCRIPTION EXPIRES 30 DAYS FROM DATE LISTED)PHYSICAL THERAPY REFERRAL S/P SURGERYICD-10: M70.61 (right), M70.62(Left), M70.60(Bilateral)1. Core stabilization, hip abductor strengthening with focus on eccentric strengthening and balance training.2. Soft tissue modalities including foam rollers as needed.3. Home exercise and stretching program.Allow 2-3 visits a week for 6 weeks.Completed by: Referring Physician: Nelson Schmidt, Orthopedic Surgery, [id number] Encounter Date: 08/21/2023 Results Created Date Observation Date Name Description Value Unit Range Abnormal Flag Note LastModifiedBy Organization Detail LastModifiedTime 12/15/19 24 12/13/2023 MRI, lumba r spine , w/o contr ast [facility] MRI- [facility] Access ion Number : [id number] Patien t Name: Linwood Frosta rakesh Record Number : [id number] Date of : 1940 Date of Exam: 2023 Referr ing Physic jose r: Jin Brewster Orth[facility] Surgeo ns ([facility]) [address], [address] [place] [address] Exam: MR Lumbar Spine (C-) CPT 49082 Room Descri ption: [facility] Espr 1.5 HISTOR Y: Low back pain. Right lower extrem ity radicu lar pain. TECHNI QUE: Multip lanar multis equenc e MRI of the lumbar spine withou t contra st. COMPAR HOWARD: No prior studie s are availa ble for compar howard at [facility] . [...] at L1. Fatty atroph y of the office clin asst ior parasp inal muscul ature. No acute [...] forami nal narrow ing. L5-S1 subtle left office clin asst ior margin al spurri ng. Minima l left centra l canal narrow ing. No idris sing nerve root imping ement. No forami nal stenos is. IMPRES HILTON: Degene rative change s of the lumbar spine with centra l canal and forami nal narrow ing as noted above. No nerve root imping ement. Electr onical ly Signed By: Louis Coppola MD [email or web address] [facility] ([facility]) [address] [place], [address], 12/18/2023 14:04:51 Result Notes None recorded. Problems Name Problem SNOMED Code Status Onset Date Resolution Date Notes Provider Name and Address Organization Details Recorded Time Pain of bilateral hip joints 3868657804496 9100 Active 2023 Lisa Brewster CNP [address], [place], [address], [facility] 4 12:36:25 Low back pain 691084072 Active 2023 Lisa Brewster CNP [address], [place], [address], [facility] 4 12:36:31 Pain of right hip joint 9983819333846 02 Active 2023 Nelson Schmidt PA-C [address], [place], [address], [facility] 4 09:59:48 Trochanteri c bursitis of right hip 5331129899619 00 Active 2023 Nelson Schmidt PA-C [address], [place], [address], [facility] 4 10:21:13 Problem Notes None recorded. Procedures Surgical History Date Name Laterality Status Provider Name and Address Organization Details Recorded Time Hip Kenalog 1cc Injection, L/R completed Nelson Schmidt PA-C [address], [place], [address], [facility] 08/21/2023 10:23:01 Imaging Results Imaging Date Name Status LastModified by Organiz ation Details LastModified Time 12/13/2023 MRI, lumbar spine, w/o contrast completed [email or web address] [facility] ([facility]) [address], [place], [address], 12/18/2023 14:04:51 Procedure Notes None recorded. Medical [...] Updated DateTime 08/21/2023 160.02 cm 30.1 kg/m2 94224.7 g Nelson Schmidt PA-C [address], [place], [address], [place] - [facility] 08/21/2023 09:57:15 Date Recorded Body height Body mass index (BMI) Body weight Provider Name and Address Organization Details Last Updated DateTime 12/09/2023 160.02 cm 30.1 kg/m2 23286.7 g ABEL Acharya N [facility] 12/09/2023 10:35:35 Social History None recorded. Functional Status None recorded. Mental Status None recorded. Family History Nothing Reported. Medical History Condition Response Arthritis Y Asthma Y Hypertension Y Gynecological HistoryNo gynecological history recorded. Obstetrics History GPAL:G 0 P 0 0 0 0 Past Encounters Encounter ID Performer Location Encounter Start Date Encounter Closed Date Diagnosis/Indication Diagnosis SNOMED-CT Code Diagnosis ICD10 Code Diagnosis Note [id number] Nelson Schmidt [place] [address] 08/21/2023 09:42:27 09/06/2023 14:36:30 Pain of right hip joint 6326001833 92193 M25.551 Trochanter ic bursitis of right hip 8284317579 63317 M70.61 [id number] Lisa Brewster, CHRISTA [address] [place] [address] 12/09/2023 10:07:43 12/24/2023 10:34:22 Pain of bilateral hip joints 5077786862 1010750 M25.551 Low back pain 974655395 M54.50 Health Concerns Section Related Observation LastModified by Organization Detai ls LastModified Time None Recorded Concern Status LastModified by Organization Details LastModified Time None Recorded Advance Directives Directive None Recorded Payers Encounter Date Sequence Insurance Name Policy Number Policy Hughes Covered Member ID Hughes Member ID Guarantor Name 08/21/2023 2 [place] [employer] [employer] [facility] Katherine Frost [id number] Katherine Frost 08/21/2023 1 MEDICARE B-[place]: [facility] Katherine Frost [id number] Katherine Frost 12/09/2023 2 [place] 104 Katherine Frost [id number] Katherine Frost 12/09/2023 1 MEDICARE B-[place]: [facility] Katherine Frost [id number] Katherine Frost Notes Date Note Type [...] oriented x3. Normal insight, affect, and grooming MATTRESS AND BOXSPRINGS SUPERVISOR: Gross motor coordination is intact. No spasticity [...] ordered, obtained and reviewed taken previously at [facility] reveal AP frog lateral of the pelvis [...] bursitis symptoms today. Nelson Schmidt PA-C [address], [place], [address], [facility] 08/21/2023 10:33:31 12/09/2023 text/html Katherine is a pleasant 83-year-old female who was seen previously in urgent care in July found to have some right hip arthritis as well as bursitis. She is here complaining of low back pain with radiating pain down the right lower extremity. Lisa Brewster, VEGETABLE HARVEST WORKER [address] [facility] [address], [place], [address], [facility] 12/09/2023 12:36:48 OBGyn Episode No OBEpisode recorded.
--- OUTSIDE RECORDS SUMMARY | 2024-09-21 07:29 | XMS_ITS ---
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 Generated for Printi ng/Faxing/eTransmitting on:?09/21/2024 07:29 AM EDT
--- OUTSIDE RECORDS SUMMARY | 2024-09-21 07:29 | XMS_ITS | Data Portability ---
Author Organization [facility] [address] Address [address] [place] [address] Assessment No assessment recorded. Plan of Treatment Reminders Order Date Submit Date Provider Last Modified By Organization Details Last Modified Time Details Appointments None recorded. Lab None recorded. Referral None recorded. Procedures None recorded. Surgeries None recorded. Imaging None recorded. Medication Orders naproxen 500 mg tablet 2022 023 [id number], [address], [place], [phone], 11:57:26 Patient TargetsNo targets recorded. Patient Instructions Encounter Date Encounter Id Patient Instructions Last Modified By Organization Details Last Modified Time 06/16/2022 [id number] neck pain: care instructions [email or web address] Not available [...] and Address Organization Details Recorded Time Asthma 786233556 Active 2022 Vicenta Elim null, PA - [facility] 3 10:52:15 Hyperlipidemia 57231884 Active 2022 Vicenta Elim null, PA - [facility] 3 10:52:26 Hypertensive disorder 79067692 Active 2022 Vicenta Elim null, PA - [facility] 10:52:31 Problem [...] Address Organization Details Last Updated DateTime 3 72819.7 g 29.2 kg/m2 162.56 cm 95 % 95 % 7 75 /min 20 /min 98 [degF] 149 mm[Hg] 80 mm[Hg] Vicenta Davis PA [facility] 10:54:30 Social History Question Answer Notes LastModified by Organizat ion Details LastModified Time Tobacco Smoking Status Never Smoker Vicenta butler PA [facility] 06/16/2022 10:52:40 What Is Your Level Of [...] Influenza, high-dose, trivalent, PF 8 completed Vicenta Elim null, PA - [facility] 06/16/2022 10:51:44 [...] Influenza, high-dose, quadrivalent, PF 0 completed Vicenta Elim null, PA - [facility] 06/16/2022 10:51:44 Influenza, high-dose, trivalent, PF 9 completed Vicenta Susan null, PA - [facility] 06/16/2022 10:51:44 COVID-19, mRNA, LNP-S, PF, 30 mcg/0.3 mL dose 1 completed Vicenta Elim null, PA - [facility] 06/16/2022 10:51:44 Influenza, high-dose, quadrivalent, PF 2 completed Vicenta Susan null, PA - [facility] 06/16/2022 10:51:44 zoster recombinant 2 completed Vicenta Susan null, PA - [facility] 06/16/2022 10:51:44 Td (adult), 2 Lf tetanus toxoid, preservative free, adsorbed 4 completed Vicenta Elim null, PA - [facility] 06/16/2022 10:51:44 [...] mcg/0.3 mL dose, memo-sucrose 2 completed Vicenta Elim null, PA - [facility] 06/16/2022 10:51:44 Influenza, high-dose, trivalent, PF 6 completed Vicenta Elim null, PA - [facility] 06/16/2022 10:51:44 COVID-19, mRNA, LNP-S, bivalent, PF, 30 mcg/0.3 mL dose 2 completed Vicenta Elim null, PA - [facility] 06/16/2022 10:51:44 Influenza, split virus, trivalent, preservative 3 completed Vicenta Susan null, PA - [facility] 06/16/2022 10:51:44 Influenza, adjuvanted, quadrivalent, PF 1 completed Vicenta Susan null, PA - [facility] 06/16/2022 10:51:44 Influenza, high-dose, trivalent, PF 7 completed Vicenta Elim null, PA - [facility] 06/16/2022 10:51:44 Influenza, split virus, trivalent, preservative 4 completed Vicenta Susan null, PA - [facility] 06/16/2022 10:51:45 Past Encounters Encounter ID Performer Location Encounter Start Date Encounter Closed Date Diagnosis/Indication Diagnosis SNOMED-CT Code Diagnosis ICD10 Code Diagnosis Note [id number] [address] [facility] [place] [address] 04/10/2020 14:12:05 04/10/2020 16:32:19 [id number] [address] [facility] [place] [address] 09/27/2015 15:09:30 09/27/2015 15:37:04 [id number] [address] [facility] [place] [address] 05/19/2016 11:51:38 05/19/2016 13:35:44 [id number] [address] [facility] [place] [address] 07/21/2019 12:37:35 07/21/2019 13:31:36 [id number] [address] [facility] [place] [address] 09/19/2015 16:39:37 09/19/2015 18:00:01 [id number] [address] [facility] [place] [address] 04/22/2017 10:25:15 04/22/2017 13:33:12 [id number] [address] [facility] [place] [address] 01/31/2017 12:39:47 01/31/2017 13:01:35 [id number] [address] [facility] [place] [address] 05/11/2021 08:48:36 05/11/2021 10:59:34 [id number] [address] [facility] [place] [address] 02/26/2018 08:24:54 02/26/2018 08:55:58 [id number] [address] [facility] [place] [address] 11/29/2019 10:32:17 11/29/2019 11:15:12 [id number] [address] [facility] [address] 06/07/2019 10:44:03 06/07/2019 12:16:46 [id number] [place] [address] [facility] [address] 06/16/2022 10:14:15 06/16/2022 12:01:50 Muscle spasm of cervical muscle of neck 3853847297 04 M62.838 Health Concerns Section Related Observation LastModified by Organization Detai ls LastModified Time None Recorded Concern Status LastModified by Organization Details LastModified Time None Recorded Advance Directives Directive None Recorded Payers Encounter Date Sequence Insurance Name Policy Number Policy Hughes Covered Member ID Hughes Member ID Guarantor Name 07/21/2019 1 [place] [employer] [place] Katherine A Stosz [id number] Katherine Stosz 07/21/2019 2 [place] [id number] Katherine A Stosz [id number] Katherine Stosz 11/29/2019 1 [place] Katherine A Stosz [id number] Katherine Stosz 11/29/2019 2 [place] 104 Katherine A Stosz [id number] Katherine Stosz 04/10/2020 1 [place] [place] Katherine A Stosz [id number] Katherine Stosz 04/10/2020 2 [place] 104 Katherine A Stosz [id number] Katherine Stosz 05/11/2021 1 [place] Katherine A Stosz [id number] Katherine Stosz 05/11/2021 2 [place] 104 Katherine A Stosz [id number] Katherine [facility] 06/16/2022 1 [place] Katherine Frost [id number] Katherine [facility] 06/16/2022 2 [place] 104 Katherine Arceo [facility] [id number] Katherine Frost Notes Date Note Type Note [...] West NP [address] [place], [address], [place] - [facility] 06/16/2022 11:57:39 OBGyn Episode No OBEpisode recorded.
--- OUTSIDE RECORDS SUMMARY | 2024-09-21 07:29 | XMS_ITS ---
Author Organization [facility] Lzibeth madina Uriah Address [address] [place] [address] Care Team Providers Care Sledger Name Role Phone Cielo Nichols MD Primary Care Provider Colton Santiago Unavailable [phone] Allergies No Known Allergies REASON FOR VISIT [...] Osteoarthritis of midtarsal joint of left foot (1573126180339896 ) Osteoarthritis of midtarsal joint of left foot (M19.072) Active confirmed Problem Osteoarthritis of midtarsal joint of right foot (1686653932746608 ) 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 Vital Signs Height 5 ft 3 in in 03/22/2024 Weight 170 lbs 03/22/2024 BMI 30.11 kg/m2 03/22/2024 Blood pressure systolic 135 mm Hg 03/22/20 24 Blood pressure diastolic 80 mm Hg 024 Encounters Encounter Location Date Provider Diagnosis [facility] [address] [address] 03/22/2024 Colton Villela Pain in left foot [...] Notes * Donald FROSTOB:1940 (83 yo F)Acc No.[id number]:03/22/2024 Progress Notes Patient:?Katherine Frost Provider:?Colton Villela DPM :1940???Age:83 Y???Sex:Female D ate:03/22/2024 Address:[address] [place], [place] [id number] Pcp:Cielo Nichols MD Subjective: * Chief Complaints: [...] ray : Foot, right 3V * Procedure Codes:?29903 X-RAY EXAM OF LEFT FOOT 3V, Modifiers: 26 , QP87494 X-RAY EXAM OF RIGHT FOOT 3V, Modifiers: [...] exercise to failure, expense, systemic complications, infection, [id number], prolongued postop course. Patient questions re: the various treatment options available, their successes and potential failures, and continuous churn buttermaker effects were discussed and the answers were [...] Villela DPM Date:?2023 Generated for Abbie roth/Lee/Roge on:?09/21/2024 07:29 AM EDT History and Physical Notes * [...]
--- OUTSIDE RECORDS SUMMARY | 2024-09-21 07:30 | XMS_ITS ---
Author Organization [facility] Address [address] [place] [address] Care Team Providers Care Engineering Lecturer Name Role Phone Cielo Nichols MD Primary Care Provider Colton Santiago [phone] REASON FOR VISIT NURSE COORDINATOR PPWK Entered Encounters Encounter Location Date Provider Diagnosis [facility] [address] [place] [address] 02/01/2024 Colton Villela Plan Of Treatment No Information Progress Notes * Cathleen FROSTenDOB:1940 (83 yo Other)Acc No.[id number]:02/01/2024 Patient:?Katherine Frost :1940???Age:83 Y???Sex:Unknown Address:[address] [place] [address] * true * Date:? Generated for Printi ng/Fajordanag/eTransmitting on:?09/21/2024 07:29 AM EDT
--- OUTSIDE RECORDS SUMMARY | 2024-09-21 07:30 | XMS_ITS | Patient Health Record ---
Author Organization [facility] Lizbeth madina Bartley Address [address] [place] [address] Care Team Providers Care Micrographics Services Supervisor Name Role Phone Cielo Nichols MD Primary Care Provider Colton Santiago Unavailable [phone] Allergies No Known Allergies Reason For Referral [...] Osteoarthritis of midtarsal joint of left foot (0527489019494832 ) Osteoarthritis of midtarsal joint of left foot (M19.072) Active confirmed Problem Osteoarthritis of midtarsal joint of right foot (1679534967337283 ) 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 Vital Signs Blood pressure diastolic 80 mm Hg 03/22/2024 Height 5 ft 3 in in 03/22/2024 Blood pressure systolic 135 mm Hg 03/22/2024 Weight 170 lbs 03/22/2024 BMI 30.11 kg/m2 03/22/2024 Encounters Encounter Location Date Provider Diagnosis [address] [address] 03/22/2024 Colton Villela Pain in left foot [...] of midtarsal joint of right foot M19.[address] [address] 01/15/2024 Colton Villela [address] [address] 02/01/2024 Colton Villela Assessments Encounter Date Diagnosis [...] Medicare [employer] [address] [place] [address] [phone] [id number] Katherine Frost Self - patient is the insured [facility] [address] [place] [address] [phone] [id number] Katherine Frost Self - patient is the insured Medical (General) History Medical History History ICD Code Arthritis asthma Broken bones CAD (Cholesterol) covid-19 Gall bladder problems Hiatal hernia High Blood Pressure Reflux ( GERD) Sciatica Measles Mumps Surgical History Surgery Date(Month/Year) Gall bladder removal 2008 breast lump 1988 cortazone shot in back 02/2024
[2024-09-21 10:03] LABS: MANUAL DIFF FLAG NO
[2024-09-21 10:11] LABS: Basophils Absolute Auto 0.1 X10*3/uL (0.0-0.2); Basophils Percent Auto 0.7 % (0-2); Eosinophils Absolute Auto 0.1 X10*3/uL (0.0-0.4); Eosinophils Percent Auto 1.4 % (0-4); Hematocrit 38.3 % (37.0-47.0); Hemoglobin 12.3 g/dl (12.0-16.0); Imm Gran Abs Auto 0.08 X10*3/uL (0.00-0.03); Imm Gran Pct Auto 0.9 % (0.0-0.4); Lymphocytes Absolute Auto 3.1 X10*3/uL (1.2-4.9); Mean Corpuscular HGB Conc 32.1 g/dl (31.0-35.0); Mean Corpuscular Volume 93.4 fL (80.0-98.0); Mean Platelet Volume 9.6 fL (9.4-12.3); Monocytes Absolute Auto 0.7 X10*3/uL (0.1-1.2); Monocytes Percent Auto 7.7 % (2-11); Neutrophils Percent Auto 55.3 % (45-73); Platelet Count 354 X10*3/uL (160-400); White Blood Count 9.1 X10*3/uL (4.8-10.8)
[2024-09-21 10:29] LABS: Alanine Aminotransferase 16 U/L (0-31); Alkaline Phosphatase 52 U/L (39-117); Anion Gap 13 (12-20); Aspartate Amino Transferase 28 U/L (5-31); Bilirubin Total 0.7 mg/dL (0.0-1.0); Blood Urea Nitrogen 18 mg/dL (9-16); Calcium 9.3 mg/dL (8.4-10.2); Carbon Dioxide 29 mmol/L (22-29); Chloride 105 mmol/L (96-108); Estimated Glomerular Filt Rate > 60; Glucose Fasting 99 mg/dL (60-99); Sodium 143 mmol/L (135-145); Total Protein 6.5 g/dL (6.5-8.0)
[2024-09-27 16:33] LABS: Kappa, Serum 164 mg/dL (176-443); Kappa/Lambda Ratio, Serum 1.89 (1.29-2.55); Lambda, Serum 87 mg/dL (91-240)
== END 2024-09-21 07:27 | disposition home or self-care (01) ==
LOC: HO.HMGCLDS 07:26
PROVIDERS: PCP Internal Medicine; Visit Provider Internal Medicine
DX: D64.9 Anemia, unspecified (principal); I10 Essential (primary) hypertension; D80.1 Nonfamilial hypogammaglobulinemia
CPT/HCPCS: 36415; 80053; 83883; 85025

== ENCOUNTER 2024-09-30 09:56 | Outpatient (AMB) | payer MEDICARE, BC, SELFPAY ==
[2024-09-30 10:00] VITALS: BP 122/68; PULSE 72; RESP 18; TEMP 36.6; O2SAT 95; BMI 28.8
--- NOTE | 2024-09-30 10:00 | A.OFFPC_ITS ---
Vital Signs 09/30/24 10:00 Height 5 ft 4 in Weight 168 lb BMI 28.8 BP 122/68 Blood Pressure Location Lt brachial Position Sitting Respiration 18 Pulse 72 Pulse Source Pulse Oximeter Temp 97.8 F Temp Source Oral Pulse Oximetry (%) 95 Oxygen Delivery Method Room Air Intake Visit Reasons: 2m follow up Intake Note: Pt is here today for 2 months follow up visit. Pt would like a refill on Cetirizine and nystatin cream.Pt states that she is going for MRI for her back on Thursday. Allergies amlodipine Adverse Reaction (Intermediate, Verified 09/30/24 10:15) Edema Medication List - Last Reconciled 09/30/24 by Cielo Nichols MD acetaminophen ER (Arthritis Pain Relief (acetaminophen) ER) 650 mg PO Q12H albuterol sulfate 90 mcg/actuation 2 puffs PO Q4H PRN 30 days albuterol sulfate 0.63 mg (3 mL) inhalation Q6H amlodipine 2.5 mg PO DAILY atorvastatin 10 mg PO DAILY baclofen 10 mg PO BID beclomethasone dipropionate 80 mcg/actuation 1 inh inhalation Q12H cetirizine 10 mg PO DAILY PRN nystatin 1 appl topical BID PRN 30 days olmesartan-hydrochlorothiazide 40-12.5 mg 1 tab PO DAILY omeprazole 40 mg PO DAILY Tobacco use date assessed: 09/30/24 Fall risk assessment: No Falls in past year Last assessed Fall Risk: 09/30/24 Dental Screening Dental Screen Date: 08/02/24 HPI 2m follow up HPI Details Patient presents for the follow-up on hypertension hyperlipidemia and chronic asthma. She has not been taking Asmanex regularly but reports worsening of nasal congestion and wheezing for the last few weeks because of seasonal allergies [facility] Medical History (Updated 09/30/24 @ 15:59 by Cielo Nichols MD) Piriformis syndrome of right side Hyperlipidemia Hypertension, essential Asthma, moderate persistent Anemia Hypogammaglobulinemia Surgical History Hx of appendectomy Family History Father No problems noted. Daughter Substance use disorder Social History Housing: House Patient Tobacco Use Status: Never used Tobacco e-Cigarette/Vaping Use: Never Used service: No Current occupational status: retired Cognitive needs: No Hearing needs: No Vision needs: Yes Questionnaire Thrive Questionnaire Date Thrive assessed: 09/30/24 I am a: Patient What is your living situation today?: I have a steady place to live Within the past 12 months, did the food you bought not last and you didn't have the money to get more?: Never true Within the past 12 months, did you worry whether your food would run out before you got money to buy more?: Never true Do you have trouble paying for medicines?: No Do you have trouble getting transportation to medical appointments?: No Do you have trouble paying your heating and electricity bill?: No Do you have trouble taking care of your child, family member or friend?: No Do you have trouble with day-to-day activities such as bathing, preparing meals, shopping, managing finances, etc.?: No Are you currently unemployed and looking for a job?: No Are you interested in more education?: No Please select the resources that you would like help with: None Currently or been in a relationship where the following occur: No concerns reported THRIVE Score: 0 KARINA-7 AMB Questionnaire KARINA-7 Date KARINA - 7 assessed: 09/30/24 Feeling nervous, anxious, or on edge: 0 = Not at all Not being able to stop or control worryin = Not at all Worrying too much about different things: 0 = Not at all Trouble relaxin = Not at all Being so restless that it is hard to sit still: 0 = Not at all Becoming easily annoyed or irritable: 0 = Not at all Feeling afraid as if something awful might happen: 0 = Not at all Total KARINA-7 score (0-4 normal; 5-9 mild; 10-14 moderate; 15-21 severe): 0 Source: Developed by Drs. Danie Sanchez, Milagros Mace, Gen Miller and colleagues, with an educational rachel from [employer]. KARINA-7 Assessment Billing KARINA-7 Assessment Tool: KARINA-7 Assessment 11465 Review of Systems Const All systems reviewed & are unremarkable except as noted in HPI and below ENT Reports no additional complaints Card Reports no additional complaints Resp Reports no additional complaints GI Reports no additional complaints Reports no additional complaints Physical exam (Primary Care) Vital Signs: Last Vital Signs Temp 97.8 F 09/30/24 10:00 Pulse 72 09/30/24 10:00 Resp 18 09/30/24 10:00 BP 122/68 09/30/24 10:00 Pulse Ox 95 09/30/24 10:00 Oxygen Delivery Method Room Air 09/30/24 10:00 BMI result Body Mass Index 28.8 Tobacco/Smoking Status: Tobacco use Status Tobacco use date assessed 09/30/24 09/30/24 10:22 Patient Tobacco Use Status Never used Tobacco 09/30/24 10:01 e-Cigarette/Vaping Use Never Used 09/30/24 10:01 Thrive Assessment: Date of Thrive Assessment Date Thrive assessed 09/30/24 09/30/24 10:31 Currently or been in a relationship where the following occur: No concerns reported Const General: no acute distress HENMT Head: Yes normal to inspection Resp Effort & Inspection: normal respiratory effort Auscultation: wheezes and diminished lung sounds Cardio Rhythm: regular rhythm Heart sounds: S1 normal heart sound present and S2 normal heart sound present GI Inspection: Yes normal to inspection Palpation (GI): Soft to palpation Percussion: Yes normal to percussion Auscultation: normal bowel sounds Coding Level of Care Code Est Pt Level 4 (70204) Diagnoses Piriformis syndrome of right side G57.01 Asthma, moderate persistent J45.40 Hypertension, essential I10 Additional Codes KARINA-7 Assessment Billing - KARINA-7 Assessment Tool: KARINA-7 Assessment 88018 ([id number]) Assessment & Plan Assessment & Plan (1) Piriformis syndrome of right side: Comment: Established with [facility] Code(s): G57.01 - Lesion of sciatic nerve, right lower limb Category: Medical Plan: Follow-up with [facility] (2) Asthma, moderate persistent: Code(s): J45.40 - Moderate persistent asthma, uncomplicated Category: Medical Plan: Restart Asmanex and use albuterol as needed. Patient will restart Zyrtec for seasonal allergies (3) Hypertension, essential: Code(s): I10 - Essential (primary) hypertension Category: Medical Plan: Continue current medications Medications: New cetirizine 10 mg PO DAILY 90 tabs 2RF Refilled nystatin 1 appl topical BID PRN 30 grams 5RF rash 30 days beclomethasone dipropionate 80 mcg/actuation 1 inh inhalation Q12H 31.8 grams 3RF albuterol sulfate 90 mcg/actuation 2 puffs PO Q4H PRN 8.5 grams 4RF wheezing 30 days
--- OUTSIDE RECORDS SUMMARY | 2024-09-30 10:22 | XMS_ITS | Data Portability ---
Author Organization [facility], [address] Address [address] [place] [address] Assessment No assessment recorded. Plan of Treatment Reminders Order Date Submit Date Provider Last Modified By Organization Details Last Modified Time Details Appointments None recorded. Lab None recorded. Referral None recorded. Procedures None recorded. Surgeries None recorded. Imaging None recorded. Medication Orders naproxen 500 mg tablet 2022 023 [id number], [address], [place], [id number], 11:57:26 Patient TargetsNo targets recorded. Patient Instructions Encounter Date Encounter Id Patient Instructions Last Modified By Organization Details Last Modified Time 06/16/2022 [id number] neck pain: care instructions [email or web address] Not available [...] and Address Organization Details Recorded Time Asthma 823902519 Active 2022 Vicenta [place] null, [place] - [facility] 3 10:52:15 Hyperlipidemia 42129031 Active 2022 Vicenta Susan null, [place] - [facility] 3 10:52:26 Hypertensive disorder 56600080 Active 2022 Vicenta Susan null, PA - [...] Address Organization Details Last Updated DateTime 3 72367.7 g 29.2 kg/m2 162.56 cm 95 % 95 % 7 75 /min 20 /min 98 [degF] 149 mm[Hg] 80 mm[Hg] Vicenta Davis PA [facility] 10:54:30 Social History Question Answer Notes LastModified by Organizat ion Details LastModified Time Tobacco Smoking Status Never Smoker Vicenta butler PA [facility] 06/16/2022 10:52:40 What Is Your Level Of [...] Time Influenza, high-dose, trivalent, PF 8 completed Vicenat [place] null, [place] - [facility] 06/16/2022 10:51:44 zoster recombinant 2 completed Vicenta [place] null, PA - [facility] 06/16/2022 10:51:44 Pneumococcal conjugate PCV 13 6 completed Vicenta [place] null, PA - [facility] 06/16/2022 10:51:44 zoster live 4 completed Vicenta Susan null, PA - [facility] 06/16/2022 10:51:44 COVID-19, mRNA, LNP-S, PF, 30 mcg/0.3 mL dose 1 completed Vicenta [place] null, PA - [facility] 06/16/2022 10:51:44 Influenza, split virus, trivalent, preservative 5 completed Vicenta Susan null, PA - [facility] 06/16/2022 10:51:44 Influenza, high-dose, quadrivalent, PF 0 completed Vicenta Susan null, PA - [facility] 06/16/2022 10:51:44 Influenza, high-dose, trivalent, PF 9 completed Vicenta Susan null, PA - [facility] 06/16/2022 10:51:44 COVID-19, mRNA, LNP-S, PF, 30 mcg/0.3 mL dose 1 completed Vicenta [place] null, PA - [facility] 06/16/2022 10:51:44 Influenza, high-dose, quadrivalent, PF 2 completed Vicenta Susan null, PA - [facility] 06/16/2022 10:51:44 zoster recombinant 2 completed Vicenta Susan null, PA - [facility] 06/16/2022 10:51:44 Td (adult), 2 Lf tetanus toxoid, preservative free, adsorbed 4 completed Vicenta [place] null, PA - [facility] 06/16/2022 10:51:44 Influenza, split virus, trivalent, preservative 1 completed Vicenta [place] null, PA - [facility] 06/16/2022 10:51:44 Influenza, split virus, trivalent, preservative 2 completed Vicenta [place] null, PA - [facility] 06/16/2022 10:51:44 COVID-19, mRNA, LNP-S, PF, 30 mcg/0.3 mL dose 1 completed Vicenta [place] null, PA - [facility] 06/16/2022 10:51:44 pneumococcal polysaccharide PPV23 0 completed Vicenta Susan null, PA - [facility] 06/16/2022 10:51:44 COVID-19, mRNA, LNP-S, PF, 30 mcg/0.3 mL dose, memo-sucrose 2 completed Vicenta [place] null, PA - [facility] 06/16/2022 10:51:44 Influenza, high-dose, trivalent, PF 6 completed Vicenta Susan null, PA - [facility] 06/16/2022 10:51:44 COVID-19, mRNA, LNP-S, bivalent, PF, 30 mcg/0.3 mL dose 2 completed Vicenta Susan null, PA - [facility] 06/16/2022 10:51:44 Influenza, split virus, trivalent, preservative 3 completed Vicenta Susan null, PA - [facility] 06/16/2022 10:51:44 Influenza, adjuvanted, quadrivalent, PF 1 completed Vicenta [place] null, PA - [facility] 06/16/2022 10:51:44 Influenza, high-dose, trivalent, PF 7 completed Vicenta [place] null, PA - [facility] 06/16/2022 10:51:44 Influenza, split virus, trivalent, preservative 4 completed Vicenta Susan null, PA - [facility] 06/16/2022 10:51:45 Past Encounters Encounter ID Performer Location Encounter Start Date Encounter Closed Date Diagnosis/Indication Diagnosis SNOMED-CT Code Diagnosis ICD10 Code Diagnosis Note [id number] [address] [place] [address] 04/10/2020 14:12:05 04/10/2020 16:32:19 [id number] [address] [place] [address] 09/27/2015 15:09:30 09/27/2015 15:37:04 [id number] [address] [place] [address] 05/19/2016 11:51:38 05/19/2016 13:35:44 [id number] [address] [place] [address] 07/21/2019 12:37:35 07/21/2019 13:31:36 [id number] [address] [place] [address] 09/19/2015 16:39:37 09/19/2015 18:00:01 [id number] [address] [place] [address] 04/22/2017 10:25:15 04/22/2017 13:33:12 [id number] [address] [place] [address] 01/31/2017 12:39:47 01/31/2017 13:01:35 [id number] [address] [place] [address] 05/11/2021 08:48:36 05/11/2021 10:59:34 [id number] [address] [place] [address] 02/26/2018 08:24:54 02/26/2018 08:55:58 [id number] [address] [place] [address] 11/29/2019 10:32:17 11/29/2019 11:15:12 [id number] [address] [place] [address] 06/07/2019 10:44:03 06/07/2019 12:16:46 [id number] Constantine Brett, BEVEL MILL OPERATOR [address] [place] [address] 06/16/2022 10:14:15 06/16/2022 12:01:50 Muscle spasm of cervical muscle of neck 7689418400 04 M62.838 Health Concerns Section Related Observation LastModified by Organization Detai ls LastModified Time None Recorded Concern Status LastModified by Organization Details LastModified Time None Recorded Advance Directives Directive None Recorded Payers Insurance Date Sequence Insurance Name Policy Number Policy Hughes Covered Member ID Hughes Member ID Guarantor Name 06/16/2022 1 [place] [employer] Katherine Arceo Santosh [id number] Katherine Frost 06/16/2022 2 [place]GRAM [facility] Katherine Arceo Santosh [id number] Katherine Frost 06/16/2022 NORIDIAN - SPECIALITY CLAIMS (MEDICARE DME REGION A) Katherine Arceo Santosh [id number] Katherine Frost Notes Date Note Type Note [...] West NP [address] [place], [address], [place] - [facility] 06/16/2022 11:57:39 OBGyn Episode No OBEpisode recorded.
--- OUTSIDE RECORDS SUMMARY | 2024-09-30 10:23 | XMS_ITS | Data Portability ---
Author Organization [place] - [facility] Address [address] [place] [address] Care Team Providers Care Facilities Officer Name Role Phone KERRIEDEEPAJAVIER LaurenHENRIQUE Primary Care Provider [phone] Assessment No assessment recorded. Plan of Treatment [...] 2023 024 [facility], [address] [place] [address], [address], 4 14:36:30 Procedures None recorded. Surgeries None [...] by: Referring Physician: Nelson Schmidt, Orthopedic Surgery, [id number] Encounter Date: 08/21/2023 Results Created Date Observation Date Name Description Value Unit Range Abnormal Flag Note LastModifiedBy Organization Detail LastModifiedTime 12/15/19 24 12/13/2023 MRI, lumba r spine , w/o contr ast [facility] MRI- [facility] Access ion Number : [id number] Patien t Name: Linwood Frosta rakesh Record Number : [id number] Date of : 1940 Date of Exam: 2023 Referr ing Physic jose r: Jin Brewster Orth[facility] Surgeo ns ([facility]) [address], [address] [place] [address] Exam: MR Lumbar Spine (C-) CPT 00031 Room Descri ption: [facility] Espr 1.5 HISTOR Y: Low back pain. Right lower extrem ity radicu lar pain. TECHNI QUE: Multip lanar multis equenc e MRI of the lumbar spine withou t contra st. COMPAR HOWARD: No prior studie s are availa ble for compar howard at [facility] and [facility] Center [...] at L1. Fatty atroph y of the rubber stamps and dies supervisor ior parasp inal muscul ature. No acute [...] forami nal narrow ing. L5-S1 subtle left rubber stamps and dies supervisor ior margin al spurri ng. Minima l left centra l canal narrow ing. No idris sing nerve root imping ement. No forami nal stenos is. IMPRES HILTON: Degene rative change s of the lumbar spine with centra l canal and forami nal narrow ing as noted above. No nerve root imping ement. Electr onical ly Signed By: Louis Coppola MD [email or web address] [facility] ([facility]) [address] [place], [address], 12/18/2023 14:04:51 Result Notes None recorded. Problems Name Problem SNOMED Code Status Onset Date Resolution Date Notes Provider Name and Address Organization Details Recorded Time Pain of bilateral hip joints 4538693868747 9100 Active 2023 Lisa Brewster CNP [address], [place], [address], [facility] 4 12:36:25 Low back pain 427798275 Active 2023 Lisa Brewster CNP [address], [place], [address], [facility] 4 12:36:31 Pain of right hip joint 2880314717473 02 Active 2023 Nelson Schmidt PA-C [address], [place], [address], [facility] 4 09:59:48 Trochanteri c bursitis of right hip 0284885309318 00 Active 2023 Nelson Schmidt PA-C [address], [place], [address], [facility] 4 10:21:13 Problem Notes None recorded. Procedures Surgical History Date Name Laterality Status Provider Name and Address Organization Details Recorded Time Hip Kenalog 1cc Injection, L/R completed Nelson Schmidt PA-C [address], [place], [address], [facility] 08/21/2023 10:23:01 Imaging Results Imaging Date Name Status LastModified by Organiz ation Details LastModified Time 12/13/2023 MRI, lumbar spine, w/o contrast completed [email or web address] [facility] ([facility]) [address], [place], [address], 12/18/2023 14:04:51 Procedure Notes None recorded. Medical [...] Updated DateTime 08/21/2023 160.02 cm 30.1 kg/m2 97624.7 g Nelson Schmidt PA-C [address], [place], [address], [place] - [facility] 08/21/2023 09:57:15 Date Recorded Body height Body mass index (BMI) Body weight Provider Name and Address Organization Details Last Updated DateTime 12/09/2023 160.02 cm 30.1 kg/m2 18641.7 g ABEL Acharya N [facility] 12/09/2023 10:35:35 Social History None recorded. [...] SNOMED-CT Code Diagnosis ICD10 Code Diagnosis Note [id number] Nelson Schmidt [place] [address] 08/21/2023 09:42:27 09/06/2023 14:36:30 Pain of right hip joint 6256843754 40941 M25.551 Trochanter ic bursitis of right hip 9943251374 47749 M70.61 [id number] Lisa Brewster, [address] [place] [address] 12/09/2023 10:07:43 12/24/2023 10:34:22 Pain of bilateral hip joints 8939109339 1573254 M25.551 Low back pain 023926304 M54.50 Health Concerns Section Related Observation LastModified by Organization Detai ls LastModified Time None Recorded Concern Status LastModified by Organization Details LastModified Time None Recorded Advance Directives Directive None Recorded Payers Encounter Date Sequence Insurance Name Policy Number Policy Hughes Covered Member ID Hughes Member ID Guarantor Name 08/21/2023 2 [place] [facility] EMPLOYEE PROGRAM [facility] Katherine Frost [id number] Katherine Frost 08/21/2023 1 MEDICARE B[place]: [facility] Katherine Frost [id number] Katherine Frost 12/09/2023 2 [place]GRAM 104 Katherine Frost [id number] Katherine Frost 12/09/2023 1 [place] [facility] Katherine Frost [id number] Katherine Frost Notes Date Note Type [...] oriented x3. 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 No spasticity [...] ordered, obtained and reviewed taken previously at [facility] reveal AP frog lateral of the pelvis [...] bursitis symptoms today. Nelson Schmidt PA-C [address], [place], [address], [facility] 08/21/2023 10:33:31 12/09/2023 text/html Katherine is a pleasant 83-year-old female who was seen previously in urgent care in July found to have some right hip arthritis as well as bursitis. She is here complaining of low back pain with radiating pain down the right lower extremity. Lisa Brewster, BEAN WEIGHER [address], [place], [address], [facility] 12/09/2023 12:36:48 OBGyn Episode No OBEpisode recorded.
--- OUTSIDE RECORDS SUMMARY | 2024-09-30 10:23 | XMS_ITS | Patient Health Record ---
Author Organization [facility] [address] Address [address] [place] [address] Care Team Providers Care Customer Insight Analyst Name Role Phone Cielo Nichols MD Primary Care Provider Colton Santiago Unavailable [phone] Allergies No Known Allergies Reason For Referral [...] Osteoarthritis of midtarsal joint of left foot (2706979217935338 ) Osteoarthritis of midtarsal joint of left foot (M19.072) Active confirmed Problem Osteoarthritis of midtarsal joint of right foot (8856640594843819 ) 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 Vital Signs Blood pressure diastolic 80 mm Hg 03/22/2024 Height 5 ft 3 in in 03/22/2024 Blood pressure systolic 135 mm Hg 03/22/2024 Weight 170 lbs 03/22/2024 BMI 30.11 kg/m2 03/22/2024 Encounters Encounter Location Date Provider Diagnosis [address] [address] 03/22/2024 Colton Villela Pain in left foot [...] of midtarsal joint of right foot M19.[address] [address] 01/15/2024 Colton Villela [address] [address] 02/01/2024 Colton Villela Assessments Encounter Date Diagnosis [...] Medicare National [employer] [address] [place] [address] [phone] [id number] Katherine Frost Self - patient is the insured [facility] [address] [place] [address] [phone] [id number] Katherine Frost Self - patient is the insured Medical (General) History Medical History History ICD Code Arthritis asthma Broken bones CAD (Cholesterol) covid-19 Gall bladder problems Hiatal hernia High Blood Pressure Reflux ( GERD) Sciatica Measles Mumps Surgical History Surgery Date(Month/Year) Gall bladder removal 2008 breast lump 1988 cortazone shot in back 02/2024
--- OUTSIDE RECORDS SUMMARY | 2024-09-30 10:23 | XMS_ITS ---
Author Organization [facility] Address [address] [place] [address] Care Team Providers Care Loan Operations Manager Name Role Phone Cielo Nichols MD Primary Care Provider Colton Santiago [phone] REASON FOR VISIT SUPERVISOR WOUND PPWK Entered Encounters Encounter Location Date Provider Diagnosis [facility] [address] [place] [address] 02/01/2024 Colton Villela Plan Of Treatment No Information Progress Notes * Cathleen FROSTenDOB:1940 (83 yo Other)Acc No.[id number]:02/01/2024 Patient:?Katherine Frost :1940???Age:83 Y???Sex:Unknown Address:[address] [place] [address] * true * Date:? Generated for Printi ng/Fajordanag/eTransmitting on:?09/30/2024 10:23 AM EDT
--- OUTSIDE RECORDS SUMMARY | 2024-09-30 10:23 | XMS_ITS ---
Author Organization [facility] Lizbeth madina [place] Address [address] [place] [address] Care Team Providers Care Skein Spooler Name Role Phone Cielo Nichols MD Primary Care Provider Colton Santiago Unavailable [phone] Allergies No Known Allergies REASON FOR VISIT [...] Osteoarthritis of midtarsal joint of left foot (2973871415286581 ) Osteoarthritis of midtarsal joint of left foot (M19.072) Active confirmed Problem Osteoarthritis of midtarsal joint of right foot (4693433562198224 ) 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 Vital Signs Height 5 ft 3 in in 03/22/2024 Weight 170 lbs 03/22/2024 BMI 30.11 kg/m2 03/22/2024 Blood pressure systolic 135 mm Hg 03/22/20 24 Blood pressure diastolic 80 mm Hg 024 Encounters Encounter Location Date Provider Diagnosis [facility] [address] [address] 03/22/2024 Colton Villela Pain in left foot [...] Notes * Donald FROSTOB:1940 (83 yo F)Acc No.[id number]:03/22/2024 Progress Notes Patient:?Katherine Frost Provider:?Colton Villela DPM :1940???Age:83 Y???Sex:Female D ate:03/22/2024 Address:[address] [place], [place] [id number] Pcp:Cielo Nichols MD Subjective: * Chief Complaints: [...] ray : Foot, right 3V * Procedure Codes:?58553 X-RAY EXAM OF LEFT FOOT 3V, Modifiers: 26 , AF15092 X-RAY EXAM OF RIGHT FOOT 3V, Modifiers: [...] exercise to failure, expense, systemic complications, infection, [id number], prolongued postop course. Patient questions re: the various treatment options available, their successes and potential failures, and mcfp effects were discussed and the answers were [...] Villela DPM Date:?2023 Generated for Abbie roth/Lee/Roge on:?09/30/2024 10:23 AM EDT History and Physical Notes * [...]
--- OUTSIDE RECORDS SUMMARY | 2024-09-30 10:23 | XMS_ITS ---
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 Generated for Printi ng/Fajordanag/eTransmitting on:?09/30/2024 10:22 AM EDT
== END 2024-09-30 11:32 | disposition home or self-care (01) ==
LOC: HO.HMCC 09:57
PROVIDERS: PCP Internal Medicine; Visit Provider Internal Medicine
DX: G57.01 Lesion of sciatic nerve, right lower limb (principal); J45.40 Moderate persistent asthma, uncomplicated; I10 Essential (primary) hypertension

== ENCOUNTER → 2024-09-30 09:56 | Outpatient (BNVA) | payer MEDICARE, BC, SELFPAY | PROVIDERS: PCP Internal Medicine; Visit Provider Internal Medicine | DX: G57.01 Lesion of sciatic nerve, right lower limb (principal); J45.40 Moderate persistent asthma, uncomplicated; I10 Essential (primary) hypertension | CPT/HCPCS: 96127; 99212 ==

== ENCOUNTER 2025-02-03 10:31 | Outpatient (AMB) | payer MEDICARE, BC, SELFPAY ==
--- NOTE | 2025-02-03 10:33 | MHC.PC.OV ---
Vital Signs 02/03/25 10:34 Height 5 ft 4 in Weight 161 lb BMI 27.6 BP 122/70 Blood Pressure Location Lt brachial Position Sitting Respiration 18 Pulse 88 Pulse Source Pulse Oximeter Temp 97.9 F Temp Source Oral Pulse Oximetry (%) 94 Oxygen Delivery Method Room Air Intake Visit Reasons: PE Intake Note: Pt is here today for PE. Allergies amlodipine Adverse Reaction (Intermediate, Verified 02/03/25 10:34) Edema Tobacco use date assessed: 02/03/25 Fall risk assessment: No Falls in past year Last assessed Fall Risk: 02/03/25 Dental Screening Dental Screen Date: 08/02/24 HPI PE HPI Details Pt presents for PE. FOR[facility]LY [facility], [facility] Medical History Piriformis syndrome of right side Hyperlipidemia Hypertension, essential Asthma, moderate persistent Anemia Hypogammaglobulinemia Surgical History Hx of appendectomy Family History Father No problems noted. Daughter Substance use disorder Social History Housing: House Patient Tobacco Use Status: Never used Tobacco e-Cigarette/Vaping Use: Never Used service: No Current occupational status: retired Cognitive needs: No Hearing needs: No Vision needs: Yes Questionnaire Thrive Questionnaire Date Thrive assessed: 07/27/24 I am a: Patient What is your living situation today?: I have a steady place to live Within the past 12 months, did the food you bought not last and you didn't have the money to get more?: Never true Within the past 12 months, did you worry whether your food would run out before you got money to buy more?: Never true Do you have trouble paying for medicines?: No Do you have trouble getting transportation to medical appointments?: No Do you have trouble paying your heating and electricity bill?: No Do you have trouble taking care of your child, family member or friend?: No Do you have trouble with day-to-day activities such as bathing, preparing meals, shopping, managing finances, etc.?: No Are you currently unemployed and looking for a job?: No Are you interested in more education?: No Please select the resources that you would like help with: None Currently or been in a relationship where the following occur: No concerns reported THRIVE Score: 0 KARINA-7 AMB Questionnaire KARINA-7 Date KARINA - 7 assessed: 09/30/24 Source: Developed by Drs. Danie Sanchez, Milagros Mace, Gen Miller and colleagues, with an educational rachel from [employer]. Review of Systems Const All systems reviewed & are unremarkable except as noted in HPI and below Eyes Reports no additional complaints ENT Reports no additional complaints Card Reports no additional complaints Resp Reports no additional complaints GI Reports no additional complaints Reports no additional complaints Physical exam (Primary Care) Vital Signs: Last Vital Signs Temp 97.9 F 02/03/25 10:34 Pulse 88 02/03/25 10:34 Resp 18 02/03/25 10:34 BP 122/70 02/03/25 10:34 Pulse Ox 94 02/03/25 10:34 Oxygen Delivery Method Room Air 02/03/25 10:34 BMI result Body Mass Index 27.6 Tobacco/Smoking Status: Tobacco use Status Tobacco use date assessed 02/03/25 02/03/25 10:39 Patient Tobacco Use Status Never used Tobacco 02/03/25 10:37 e-Cigarette/Vaping Use Never Used 02/03/25 10:37 Thrive Assessment: Date of Thrive Assessment Date Thrive assessed 07/27/24 02/03/25 10:37 Currently or been in a relationship where the following occur: No concerns reported Const General: no acute distress HENMT Head: Yes normal to inspection Ears: hearing grossly normal bilaterally Face and sinus: Yes normal facial exam Eyes General: appearance normal, both eyes and all related structures Neck Neck: Yes no lymphadenopathy and Yes supple Resp Effort & Inspection: normal respiratory effort Auscultation: clear to auscultation bilaterally Cardio Rhythm: regular rhythm Heart sounds: S1 normal heart sound present and S2 normal heart sound present GI Inspection: Yes normal to inspection Palpation (GI): Soft to palpation Percussion: Yes normal to percussion Auscultation: normal bowel sounds Coding Level of Care Code Est Pt Prev Care >65y(43122) Diagnoses Hypertension, essential I10 Hyperlipidemia E78.5 Annual physical exam Z00.00 Asthma, moderate persistent J45.40 Assessment & Plan Assessment & Plan (1) Hypertension, essential: Code(s): I10 - Essential (primary) hypertension Category: Medical Plan: cont meds (2) Hyperlipidemia: Code(s): E78.5 - Hyperlipidemia, unspecified Category: Medical Plan: cont statin (3) Annual physical exam: Code(s): Z00.00 - Encounter for general adult medical examination without abnormal findings Category: Medical Plan: Well-balanced diet regular physical activity discussed with the patient she will return for fasting blood work. Patient will follow-up in 6 months with a fasting labs before (4) Asthma, moderate persistent: Code(s): J45.40 - Moderate persistent asthma, uncomplicated Category: Medical Plan: Continue beclomethasone inhaler and albuterol PRN Orders: Orders Comprehensive [place]. Panel Fast Today E78.5 - Hyperlipidemia, unspecified, I10 - Essential (primary) hypertension, J45.40 - Moderate persistent asthma, uncomplicated Complete Blood Count Auto Diff Today E78.5 - Hyperlipidemia, unspecified, I10 - Essential (primary) hypertension, J45.40 - Moderate persistent asthma, uncomplicated TSH reflex Free T4 Today E78.5 - Hyperlipidemia, unspecified, I10 - Essential (primary) hypertension, J45.40 - Moderate persistent asthma, uncomplicated Lipid Panel Today E78.5 - Hyperlipidemia, unspecified, I10 - Essential (primary) hypertension, J45.40 - Moderate persistent asthma, uncomplicated Vitamin D 25-OH Total Today E78.5 - Hyperlipidemia, unspecified, I10 - Essential (primary) hypertension, J45.40 - Moderate persistent asthma, uncomplicated
[2025-02-03 10:34] VITALS: BP 122/70; PULSE 88; RESP 18; TEMP 36.6; O2SAT 94; BMI 27.6
--- OUTSIDE RECORDS SUMMARY | 2025-02-03 12:11 | XMS_ITS | Patient Health Record ---
Author Organization [facility] [address] [place] Address [address] [place] [address] Care Team Providers Care Acid Wash Operator Name Role Phone Cielo Nichols MD Primary Care Provider Colton Santiago Unavailable [phone] Allergies No Known Allergies Reason For Referral [...] Osteoarthritis of midtarsal joint of left foot ([id number] ) Osteoarthritis of midtarsal joint of left foot (M19.072) Active confirmed Problem Osteoarthritis of midtarsal joint of right foot (7902326842123128 ) 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 Vital Signs Blood pressure diastolic 80 mm Hg 03/22/2024 Height 5 ft 3 in in 03/22/2024 Blood pressure systolic 135 mm Hg 03/22/2024 Weight 170 lbs 03/22/2024 BMI 30.11 kg/m2 03/22/2024 Encounters Encounter Location Date Provider Diagnosis [facility] [place] [address] [place] [address] 03/22/2024 Colton Villela Pain in left foot [...] Medicare [employer] [address] [facility] [place] [address] [id number] Katherine Frost Self - patient is the insured [facility] [address] [place] [address] [id number] Katherine Frost Self - patient is the insured Medical (General) History Medical History History ICD Code Arthritis asthma Broken bones CAD (Cholesterol) covid-19 Gall bladder problems Hiatal hernia High Blood Pressure Reflux ( GERD) Sciatica Measles Mumps Surgical History Surgery Date(Month/Year) Gall bladder removal 2008 breast lump 1988 cortazone shot in back 02/2024
--- OUTSIDE RECORDS SUMMARY | 2025-02-03 12:11 | XMS_ITS ---
[facility] Name [facility] Organization Unknown Care Team Organization Name Specialty Phone Email Start Date End Da te [facility] Leonora Blood Primary Care 04/01/2022 4
== END 2025-02-03 11:29 | disposition home or self-care (01) ==
LOC: HO.HMCC 10:32
PROVIDERS: PCP Internal Medicine; Visit Provider Internal Medicine
DX: Z00.00 Encounter for general adult medical examination without abnormal findings (principal); I10 Essential (primary) hypertension; E78.5 Hyperlipidemia, unspecified; J45.40 Moderate persistent asthma, uncomplicated

== ENCOUNTER → 2025-02-03 10:31 | Outpatient (BNVA) | payer MEDICARE, BC, SELFPAY | PROVIDERS: PCP Internal Medicine; Visit Provider Internal Medicine | DX: Z00.00 Encounter for general adult medical examination without abnormal findings (principal); I10 Essential (primary) hypertension; E78.5 Hyperlipidemia, unspecified; J45.40 Moderate persistent asthma, uncomplicated | CPT/HCPCS: 99397 ==

== ENCOUNTER 2025-02-15 08:57 | Outpatient (REF) | payer MEDICARE, BC, SELFPAY ==
--- OUTSIDE RECORDS SUMMARY | 2025-02-15 10:33 | XMS_ITS | Patient Health Record ---
Author Organization [facility] [address] [place] Address [address] [place] [address] Care Team Providers Care Parish Nurse Name Role Phone Cielo Nichols MD Primary Care Provider Colton Santiago Unavailable [phone] Allergies No Known Allergies Reason For Referral [...] Osteoarthritis of midtarsal joint of left foot ([id number] ) Osteoarthritis of midtarsal joint of left foot (M19.072) Active confirmed Problem Osteoarthritis of midtarsal joint of right foot (1275521622352262 ) 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 Vital Signs Blood pressure diastolic 80 mm Hg 03/22/2024 Height 5 ft 3 in in 03/22/2024 Blood pressure systolic 135 mm Hg 03/22/2024 Weight 170 lbs 03/22/2024 BMI 30.11 kg/m2 03/22/2024 Encounters Encounter Location Date Provider Diagnosis [facility] [place] [address] [place] [address] 03/22/2024 Colton Villela Pain in left foot [...] [employer] [address] [facility] [place] [address] [id number] Katherine Frost Self - patient is the insured [facility] [address] [place] [address] [id number] Katherine Frost Self - patient is the insured Medical (General) History Medical History History ICD Code Arthritis asthma Broken bones CAD (Cholesterol) covid-19 Gall bladder problems Hiatal hernia High Blood Pressure Reflux ( GERD) Sciatica Measles Mumps Surgical History Surgery Date(Month/Year) Gall bladder removal 2008 breast lump 1988 cortazone shot in back 02/2024
[2025-02-15 14:00] LABS: MANUAL DIFF FLAG NO
[2025-02-15 14:03] LABS: Hematocrit 35.6 % (37.0-47.0); Hemoglobin 11.4 g/dl (12.0-16.0); Imm Gran Abs Auto 0.03 X10*3/uL (0.00-0.03); Imm Gran Pct Auto 0.5 % (0.0-0.4); Lymphocytes Absolute Auto 1.9 X10*3/uL (1.2-4.9); Mean Corpuscular HGB Conc 32.0 g/dl (31.0-35.0); Mean Corpuscular Hemoglobin 29.5 pg (27.0-33.0); Mean Corpuscular Volume 92.0 fL (80.0-98.0); NRBC Abs Auto 0.000 X10*3/uL (0.0-0.012); NRBC Pct Auto 0.0 /100WBC (0.0-0.2); Platelet Count 308 X10*3/uL (160-400); Red Blood Count 3.87 X10*6/uL (4.20-5.50); White Blood Count 6.7 X10*3/uL (4.8-10.8)
[2025-02-15 14:39] LABS: Alanine Aminotransferase 16 U/L (0-31); Albumin Level 4.0 g/dL (3.5-5.0); Alkaline Phosphatase 54 U/L (39-117); Anion Gap 13 (12-20); Aspartate Amino Transferase 31 U/L (5-31); Blood Urea Nitrogen 12 mg/dL (9-16); Calcium 9.1 mg/dL (8.4-10.2); Carbon Dioxide 29 mmol/L (22-29); Chloride 106 mmol/L (96-108); Cholesterol 174 mg/dL (<200); Estimated Glomerular Filt Rate > 60; HDL Cholesterol 52 mg/dL (>40); Potassium 4.2 mmol/L (3.3-5.1); Sodium 144 mmol/L (135-145); Total Protein 6.4 g/dL (6.5-8.0); Triglycerides 122 mg/dL (<150)
== END 2025-02-15 08:58 | disposition home or self-care (01) ==
LOC: HO.HMGCLDS 08:57
PROVIDERS: PCP Internal Medicine; Visit Provider Internal Medicine
DX: I10 Essential (primary) hypertension (principal); E78.5 Hyperlipidemia, unspecified; J45.40 Moderate persistent asthma, uncomplicated
CPT/HCPCS: 36415; 80053; 80061; 82306; 84443; 85025

== ENCOUNTER 2025-03-13 09:49 | Outpatient (REF) | payer MEDICARE, BC, SELFPAY ==
--- NOTE | ~2025-03-13 | MM_ITS ---
EXAMINATION: MM SCREENING DIGITAL BREAST TOMOSYNTHESIS, BILATERAL CLINICAL INFORMATION: Screening. Asymptomatic. COMPARISON: Mammography: Comparison is made with available priors TECHNIQUE: Digital breast mammography with tomosynthesis is performed in both the craniocaudal and mediolateral oblique views along with computer-aided detection (CAD). FINDINGS: The breasts are heterogeneously dense, which may obscure small masses. There are no significant masses, abnormal calcifications, or other abnormalities. MM/MM tomosynthesis screening BI IMPRESSION: No mammographic evidence of malignancy. ASSESSMENT: BI-RADS Category 1: Negative RECOMMENDATION: Routine annual mammography screening. 1 year F/U This examination should not preclude the clinical evaluation of a suspicious palpable abnormality. This patient's information was entered into a reminder system with a target due date for their next mammogram. Electronically signed by: Jennifer Bowling DO 03/14/2025 06:01 PM EDT
== END 2025-03-13 09:50 | disposition home or self-care (01) ==
LOC: HO.MAMMO 09:49
PROVIDERS: PCP Internal Medicine; Visit Provider Internal Medicine
DX: Z12.31 Encounter for screening mammogram for malignant neoplasm of breast (principal)
CPT/HCPCS: 77063; 77067

== ENCOUNTER → 2025-03-13 10:00 | Outpatient (BNV) | payer MEDICARE, BC, SELFPAY | PROVIDERS: PCP Internal Medicine; Visit Provider Internal Medicine | DX: Z12.31 Encounter for screening mammogram for malignant neoplasm of breast (principal) | CPT/HCPCS: 77063; 77067 ==